=== PATIENT | male | born 1945 | race Caucasian/White ===

== ENCOUNTER → 2019-12-01 08:37 | Outpatient (BNVA) | payer MEDICARE, SELFPAY | PROVIDERS: Family Provider Family Medicine; PCP Family Medicine; Visit Provider Internal Medicine Cardiovascular Disease | DX: I25.5 Ischemic cardiomyopathy (principal) | CPT/HCPCS: 80048 ==

== ENCOUNTER → 2019-12-20 11:25 | Outpatient (BNVA) | payer MEDICARE, SELFPAY | PROVIDERS: Family Provider Family Medicine; PCP Family Medicine; Visit Provider Specialist | DX: Z48.89 Encounter for other specified surgical aftercare (principal); Z96.642 Presence of left artificial hip joint | CPT/HCPCS: 73502 ==

== ENCOUNTER → 2020-10-16 08:41 | Outpatient (BNVA) | payer MEDICARE, SELFPAY | PROVIDERS: Family Provider Family Medicine; PCP Family Medicine; Visit Provider Internal Medicine Cardiovascular Disease | DX: E78.2 Mixed hyperlipidemia (principal); I25.5 Ischemic cardiomyopathy | CPT/HCPCS: 80061; 80162 ==

== ENCOUNTER 2021-06-01 07:11 | Outpatient (CLI) | payer MEDICARE, SELFPAY ==
--- NOTE | 2021-06-01 07:15 | USCV_ITS ---
Anish Harris Age: 75 Gender: M : 1945 Exam Date: 06/01/2021 07:29 Ordering Phys: Filipe Mak MD ([email or web address]) Technologist: Betty Coleman Exam Location: [facility] [place] Indication: chest pain, other BP: 130 / 70 HR: 101 Rhythm: Sinus Technical Quality: Fair MEASUREMENTS (Male / Female) Normal Values 2D ECHO LV Diastolic Diameter PLAX 4.3 cm 4.2 - 5.9 / 3.9 - 5.3 cm LV Systolic Diameter PLAX 3.8 cm LV Chamber Size 3.7 cm IVS Diastolic Thickness 1.7 cm 0.6 - 1.0 / 0.6 - 0.9 cm IVS Systolic Thickness 1.9 cm LVPW Diastolic Thickness 1.6 cm 0.6 - 1.0 / 0.6 - 0.9 cm LVPW Systolic Thickness 1.7 cm RV Chamber Size 2.6 cm LVOT Diameter 2.0 cm LV Ejection Fraction 2D Teich 26.2 % LA Diameter 4.3 cm LA Width 3.3 cm LA Height 3.6 cm RA Width 2.9 cm RA Height 3.4 cm Aorta at Sinotubular Diameter 2.6 cm M-MODE Aortic Annulus Diameter 3.8 cm LA Ao Ratio MM 1.3 MV E Point Septal Separation 2.2 cm DOPPLER AV Peak Velocity 220.7 cm/s LVOT Peak Velocity 76.0 cm/s AV Area Cont Eq vti 1.2 cm squared AV Area Cont Eq pk 1.1 cm squared MV Area PHT 10.0 cm squared Mitral E to A Ratio 0.5 MV E' Velocity 32.0 cm/s Mitral E to MV E' Ratio 8.9 Mitral E to LV E' Lateral Ratio 10.2 Mitral E to LV E' Septal Ratio 8.0 TR Peak Velocity 180.5 cm/s TR Peak Gradient 13.0 mmHg TR Mean Velocity 111.6 cm/s TR Mean Gradient 6.0 mmHg TR Velocity Time Integral 34.9 cm TV Peak E Velocity 53.0 cm/s Right Atrial Pressure 3.0 mmHg Pulmonary Artery Systolic Pressu 16.0 mmHg PV Peak Velocity 78.0 cm/s RV Acceleration Time 0.1 s RV Ejection Time 0.3 s RV AcT/ET 0.4 FINDINGS Left Ventricle Moderate hypokinesia of the basal and mid septum and anteroseptal segments. 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 Overall ejection fraction around 45 %. The aneurysm measured 4.2 x 5.4 cm in the apical chamber view Right Ventricle Defibrillator wire in the right ventricle Right Atrium Pacemaker/defibrillator wire on the right atrium. Left Atrium Appears to be of normal size. Mitral Valve No Gross abnormalities noted Aortic Valve Mild aortic valve regurgitation. Thickened aortic valve. Tricuspid Valve No gross abnormalities noted Pulmonic Valve Pulmonic valve not well visualized. Pericardium Normal pericardium without effusion. Aorta Normal aortic annulus size. CONCLUSIONS LV size with a diminished ejection fraction of 45-50%. 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 The aneurysm measured 4.2 x 5.4 cm in the apical 2 chamber view Thickened aortic valve with mild aortic valve regurgitation. Pacemaker/defibrillator wire in the right atrium right ventricle Because of the technical difficulties, comparison with the previous study from 2015 is difficult. The aneurysm appears to have increased(from 5.0 to 5.4 cm in the longitudinal dimension. Because of the difference in the technical quality, exact comparison is difficult). The overall LV ejection fraction appears to have slightly improved. No pericardial effusion. Dr Filipe Mak MD [facility] (Electronically Signed) Final Date: 01 June 2021 16:03 S
== END 2021-06-01 07:12 | disposition home or self-care (01) ==
LOC: RAD 07:14
PROVIDERS: PCP Family Medicine; Visit Provider Internal Medicine Cardiovascular Disease
DX: R07.89 Other chest pain (principal); I25.5 Ischemic cardiomyopathy; I25.3 Aneurysm of heart; Z95.0 Presence of cardiac pacemaker; I35.8 Other nonrheumatic aortic valve disorders
CPT/HCPCS: 93306

== ENCOUNTER → 2021-06-04 08:56 | Outpatient (BNVA) | payer MEDICARE, SELFPAY | PROVIDERS: PCP Family Medicine; Visit Provider Internal Medicine Cardiovascular Disease | DX: R06.02 Shortness of breath (principal); I10 Essential (primary) hypertension; E11.9 Type 2 diabetes mellitus without complications; E78.5 Hyperlipidemia, unspecified; Z79.01 Long term (current) use of anticoagulants | CPT/HCPCS: 80048; 85025 ==

== ENCOUNTER → 2021-06-07 15:41 | Outpatient (BNVA) | payer MEDICARE, SELFPAY | PROVIDERS: PCP Family Medicine; Visit Provider Internal Medicine Cardiovascular Disease | DX: R53.1 Weakness (principal); E11.9 Type 2 diabetes mellitus without complications; I10 Essential (primary) hypertension; Z79.01 Long term (current) use of anticoagulants | CPT/HCPCS: 80053; 85025 ==

== ENCOUNTER 2021-06-11 07:31 | Outpatient (CLI) | payer MEDICARE, SELFPAY ==
[2021-06-11 08:34] LABS: INR 1.24 (0.83-1.21); Prothrombin Time (Patient) 15.9 Seconds (12.0-15.1)
[2021-06-27 09:11] LABS: Basophils % 0.3 %; Eosinophils % 0.1 %; Hematocrit 47.4 % (42.0-52.0); Hemoglobin 15.2 g/dL (11.7-16.6); Lymphocytes # 1.1 10^3/uL (0.8-4.8); Lymphocytes % 7.1 %; Mean Corpuscular HGB Conc 32.1 g/dL (30.0-36.0); Mean Corpuscular Hemoglobin 29.1 pg (28.0-34.0); Mean Corpuscular Volume 90.8 fL (80-94); Mean Platelet Volume 10.7 fL (7.4-10.4); Monocytes % 6.5 %; Neutrophils # 13.52 10^3/uL (1.8-7.7); Neutrophils % 85.2 %; Nucleated Red Blood Cells % 0 %; Platelet Count 230 10^3/cmm (130-400); Red Blood Count 5.22 10^6/uL (4.1-5.3); Red Cell Distribution Width 15.1 % (12.1-15.1); White Blood Count 15.9 10^3/uL (4.0-10.0)
[2021-06-27 09:22] LABS: Alanine Aminotransferase 10 U/L (0-41); Albumin Level 2.9 g/dL (3.5-5.2); Alkaline Phosphatase 125 IU/L (40-130); Calcium 9.2 mg/dL (8.5-10.5); Carbon Dioxide 15 mmol/L (22-29); Chloride 94 mmol/L (98-107); Globulin 4.9 g/dL (1.3-4.6); Glucose 276 mg/dL (65-115); Magnesium 2.8 mg/dL (1.7-2.3); Osmolality Calculated 312 mOsm/kg (285-295); Phosphorus 3.8 mg/dL (2.5-4.5); Sodium 129 mmol/L (136-145); Total Bilirubin 0.6 mg/dL (0.15-1.2); Total Protein 7.8 g/dL (6.6-8.7)
[2021-06-27 09:23] LABS: Lactic Sepsis W/Reflex 1.9 mmol/L (0.5-2.2)
[2021-06-27 09:41] LABS: Anion Gap 24.8 (5-19); Aspartate Amino Transferase 20 U/L (0-40); Potassium 4.8 mmol/L (3.5-5.1)
[2021-06-27 09:46] LABS: Blood Urea Nitrogen 107 mg/dL (8-23)
[2021-06-27 10:07] LABS: NT Pro B Type Natriuretic Pept 8579 pg/mL (0-450); Procalcitonin 0.69 ng/mL (0-0.5)
[2021-06-29 05:39] LABS: Basophils % 0.2 %; Eosinophils % 0.1 %; Hematocrit 45.1 % (42.0-52.0); Hemoglobin 14.3 g/dL (11.7-16.6); Lymphocytes # 0.7 10^3/uL (0.8-4.8); Lymphocytes % 4.2 %; Mean Corpuscular HGB Conc 31.7 g/dL (30.0-36.0); Mean Corpuscular Hemoglobin 29.1 pg (28.0-34.0); Mean Corpuscular Volume 91.7 fL (80-94); Mean Platelet Volume 10.3 fL (7.4-10.4); Monocytes # 1.7 10^3/uL (0.2-0.9); Monocytes % 10.5 %; Neutrophils # 13.71 10^3/uL (1.8-7.7); Neutrophils % 83.6 %; Nucleated Red Blood Cells % 0.1 %; Platelet Count 151 10^3/cmm (130-400); Red Blood Count 4.92 10^6/uL (4.1-5.3); Red Cell Distribution Width 15.7 % (12.1-15.1); White Blood Count 16.4 10^3/uL (4.0-10.0)
== END 2021-06-11 07:32 | disposition home or self-care (01) ==
PROVIDERS: Internal Medicine; PCP Family Medicine; Visit Provider Internal Medicine Cardiovascular Disease
DX: I25.3 Aneurysm of heart (principal); I25.5 Ischemic cardiomyopathy; I49.9 Cardiac arrhythmia, unspecified
CPT/HCPCS: 36415; 85610

== ENCOUNTER 2021-06-26 10:14 | Inpatient (IN) | payer MEDICARE, SELFPAY ==
[2021-06-26] VITALS (7 sets, daily range): BP systolic 94–124; BP diastolic 57–77; PULSE 97–110; RESP 14–20; TEMP 36.8; O2SAT 94–100; BMI 20.2; BMI 18.8
--- NOTE | 2021-06-26 10:55 | XRR_ITS ---
PROCEDURE INFORMATION: Exam: XR Chest Exam date and time: 06/26/2021 10:55 AM Age: 75 years old Clinical indication: Other: Weakness; Prior surgery TECHNIQUE: Imaging protocol: XR of the chest. Views: 1 view. COMPARISON: CR Chest 2 views* [id number] 01/07/2019 2:36 PM FINDINGS: Tubes, catheters and devices: A cardiac pacing device is again seen projecting over the left chest. Lungs: Unremarkable. No consolidation. Pleural spaces: Unremarkable. No pleural effusion. No pneumothorax. Heart/Mediastinum: Stable cardiomediastinal silhouette. Bones/joints: Unremarkable. XR/XR chest 1V portable [id number] IMPRESSION: No evidence of active cardiopulmonary disease.
--- NOTE | 2021-06-26 10:56 | ECG_ITS ---
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: : 1945 Requested By: Gary Michelle Order Number: [id number] Reading MD: LEO NASH Measurements Intervals [place] Rate: 114 P: 64 SD: 211 QRS: -8 QRSD: 95 T: 101 QT: 310 QTc: 428 Interpretive Statements SINUS TACHYCARDIA WITH FIRST DEGREE AV BLOCK INFERIOR MYOCARDIAL INFARCTION [40+ ms Q WAVE AND/OR ST/T ABNORMALITY IN II/aVF], OF INDETERMINATE AGE Compared to ECG 01/07/2019 15:13:36 First degree AV block now present Myocardial infarct finding now present Supraventricular rhythm no longer present T-wave abnormality no longer present Electronically Signed On 06-26-2021 22:32:16 CDT by LEO NASH [email or web address]/store/[id number]
--- NOTE | 2021-06-26 12:46 | W.ED.WEAKNES ---
HPI - Weakness General: Chief complaint: Weakness Stated complaint: Weak, Time Seen by Provider: 06/26/21 12:46 History of Present Illness: HPI Narrative: 75-year-old male presents to the emergency room with complaints of generalized weakness. He is increasing weakness over the last week. Patient is extremely cachectic with obvious temporal wasting. On further questioning his admits over last 6 months he is lost probably 50 to 60 pounds his clothes are very ill fitting. He is extremely weak to the point he cannot vocalize any answers other than a few week grunts. He denies any chest pain denies any shortness of breath he does have some abdominal discomfort. He has had a few episodes of vomiting but no diarrhea he denies any hematochezia melena hematemesis or coffee-ground emesis. He has no known cancers. He is a former smoker but it was many years ago. He has had heart attack in the past several decades ago. His is uncertain whether or not he had an angiogram but he did end up with a ICD. I suspect he did have an angiogram however he has no scars on his chest and she said they had told him he was not a candidate for bypass at the time. He has had early satiety leading up to the weight lost he never had any hemoptysis. MD Complaint: generalized weakness Onset (ago): month(s) Duration: progressively worsening Location: generalized Severity: severe Exacerbating factors: none Associated symptoms: Denies chest pain, chills, confusion, melena, decreased appetite, diaphoresis, dysuria, easy bruising, fever(s), headache(s), myalgias, nausea, rash, short of breath, syncope or vomiting Review of Systems Const: Reports: fatigue and malaise; Denies: fever(s), chills or diaphoresis Card: Denies: chest pain or syncope GI: Denies: nausea, vomiting or melena : Denies: dysuria Neuro: Denies: headache(s) or confusion Fermin/Lymph: Denies: easy bruising [facility] ED PFSH: Medical History (Updated 06/28/21 @ 07:00 by Gregory Goins DO) Benign essential HTN CAD (coronary artery disease) Diabetes mellitus, type II Hyperlipidemia Ischemic cardiomyopathy Pacemaker Subcapital fracture of left hip Ventricular arrhythmia Ventricular arrhythmia EKG from today revealed sinus rhythm with first-degree AV block diffuse nonspecific T wave changes Surgical History H/O cystoscopy History of implantable cardiac defibrillator (ICD) History of implantable cardioverter-defibrillator (ICD) insertion History of permanent cardiac pacemaker placement History of total left hip replacement Family History Brother Diabetes Heart disease CAD (coronary artery disease) Hypertension Father Stroke Denies family history of Clotting disorder Dementia Hyperlipidemia Psychiatric illness Chronic kidney disease (CKD) Suicide Anesthesia complication Bleeding disorder Family history of premature coronary artery disease Lung disease Cancer Social History Smoking and tobacco status: never smoked Alcohol intake: never Physical Exam Const: GENERAL APPEARANCE: cooperative NUTRITIONAL APPEARANCE: cachectic (Temporal wasting) ORIENTATION/CONSCIOUSNESS: Yes awake HENMT: COMMON NORMALS: normocephalic and atraumatic HEAD & SCALP: normocephalic and atraumatic Eye: COMMON NORMALS: Equal, round and reactive pupils present, EOMs intact bilaterally, conjunctivae normal and no scleral icterus CONJUNCTIVA: Yes conjunctivae normal PUPIL: Yes Equal, round and reactive pupils present Neck/C-Spine: COMMON NORMALS: full ROM, no lymphadenopathy, supple and no JVD Lymph: LYMPHATIC: no lymphadenopathy noted and no lymphedema noted Resp: COMMON NORMALS: normal respiratory effort, No retractions, No use of accessory muscles and clear to auscultation bilaterally AUSCULTATION: clear to auscultation bilaterally Cardio: COMMON NORMALS: no JVD, regular rate, regular rhythm and No murmurs present (Cardio) RATE: regular rate RHYTHM: regular rhythm GI: COMMON NORMALS: Soft to palpation and No hepatosplenomegaly present AUSCULTATION: Yes normoactive bowel sounds PALPATION: Yes Soft to palpation, No Tenderness to palpation present (GI), No Guarding due to palpation present (GI) and Yes No hepatosplenomegaly present Extremity: COMMON NORMALS: normal to inspection, capillary refill normal, no clubbing, cyanosis or edema, no calf tenderness and no pedal edema Skin: COMMON NORMALS: no rashes or lesions noted GENERAL SKIN EXAM: no rashes or lesions noted Course Vital Signs: Vital signs: Vital Signs Temperature 97.9 F 06/28/21 04:00 Pulse Rate 114 H 06/28/21 04:00 Respiratory Rate 19 H 06/28/21 04:00 Blood Pressure 106/71 06/28/21 04:00 Pulse Oximetry 98 06/28/21 04:00 MDM - Weakness MDM Narrative: Medical decision making narrative: Admit for hyponatremia acute on chronic kidney disease. Some anion gap metabolic acidosis secondary to his acute renal failure. He also has leukocytosis but no clearNidus of infection I suspect it is secondary to volume depletion from that is also contributing to his acute kidney injury. Discussed with hospitalist orders written Lab Data: Labs: Lab Results 06/26/21 06/26/21 06/26/21 Range/Units 12:55 12:55 12:55 WBC 17.2 H (4.0-10.0) 10^3/ uL RBC 5.76 H (4.1-5.3) 10^6/u L Hgb 16.5 (11.7-16.6) g/dL Hct 51.6 (42.0-52.0) % MCV 89.6 (80-94) fL MCH 28.6 (28.0-34.0) pg MCHC 32.0 (30.0-36.0) g/dL RDW 15.0 (12.1-15.1) % Plt Count 363 (130-400) 10^3/c mm MPV 10.0 (7.4-10.4) fL Neut % (Auto) 84.5 % Lymph % (Auto) 6.3 % [place] % (Auto) 8.0 % Eos % (Auto) 0.0 % Baso % (Auto) 0.2 % Neut # (Auto) 14.50 H (1.8-7.7) 10^3/u L Lymph # (Auto) 1.1 (0.8-4.8) 10^3/u L [place] # (Auto) 1.4 H (0.2-0.9) 10^3/u L Eos # (Auto) 0.0 (0.0-0.8) 10^3/u L Baso # (Auto) 0.0 (0.0-0.1) 10^3/u L Nucleated RBC % (a uto) 0 % Nucleated RBCs # 0.0 /100WBC Sodium 121 L (136-145) mmol/L Potassium 5.6 H (3.5-5.1) mmol/L Chloride 80 L (98-107) mmol/L Carbon Dioxide 12 L (22-29) mmol/L Anion Gap 34.6 H (5-19) BUN 124 H* D (8-23) mg/dL Creatinine 4.2 H (0.7-1.2) mg/dL GFR Calculation Not Reportable Glucose 572 H* (65-115) mg/dL Calculated Osmolal ity 318 H (285-295) mOsm/k g Calcium 10.1 (8.5-10.5) mg/dL Total Bilirubin 0.9 (0.15-1.2) mg/dL AST 13 (0-40) U/L ALT 13 (0-41) U/L Alkaline Phosphata se 154 H (40-130) IU/L Troponin T Baselin e 32 H (0-15) ng/L Troponin T 120 Min [place] (0-15) ng/L Delta Troponin T (0-10) ABS# NT-Pro-B Natriuret Pep 96108 H (0-450) pg/mL Total Protein 9.4 H (6.6-8.7) g/dL Albumin 3.9 (3.5-5.2) g/dL Globulin 5.5 H (1.3-4.6) g/dL Lipase 281 H (13-60) U/L Serum Ketones (Negative) 06/26/21 06/26/21 Range/Units 12:55 15:49 WBC (4.0-10.0) 10^3/ uL RBC (4.1-5.3) 10^6/u L Hgb (11.7-16.6) g/dL Hct (42.0-52.0) % MCV (80-94) fL MCH (28.0-34.0) pg MCHC (30.0-36.0) g/dL RDW (12.1-15.1) % Plt Count (130-400) 10^3/c mm MPV (7.4-10.4) fL Neut % (Auto) % Lymph % (Auto) % [place] % (Auto) % Eos % (Auto) % Baso % (Auto) % Neut # (Auto) (1.8-7.7) 10^3/u L Lymph # (Auto) (0.8-4.8) 10^3/u L [place] # (Auto) (0.2-0.9) 10^3/u L Eos # (Auto) (0.0-0.8) 10^3/u L Baso # (Auto) (0.0-0.1) 10^3/u L Nucleated RBC % (a uto) % Nucleated RBCs # /100WBC Sodium (136-145) mmol/L Potassium (3.5-5.1) mmol/L Chloride (98-107) mmol/L Carbon Dioxide (22-29) mmol/L Anion Gap (5-19) BUN (8-23) mg/dL Creatinine (0.7-1.2) mg/dL GFR Calculation Glucose (65-115) mg/dL Calculated Osmolal ity (285-295) mOsm/k g Calcium (8.5-10.5) mg/dL Total Bilirubin (0.15-1.2) mg/dL AST (0-40) U/L ALT (0-41) U/L Alkaline Phosphata se (40-130) IU/L Troponin T Baselin e (0-15) ng/L Troponin T 120 Min [place] 33.33 H (0-15) ng/L Delta Troponin T 1.33 (0-10) ABS# NT-Pro-B Natriuret Pep (0-450) pg/mL Total Protein (6.6-8.7) g/dL Albumin (3.5-5.2) g/dL Globulin (1.3-4.6) g/dL Lipase (13-60) U/L Serum Ketones Negative (Negative) Discharge Plan Discharge Patient Disposition: Admitted As Inpatient Admit Provider: Mendoza Daugherty Clinical Impression: Acute kidney injury superimposed on CKD, Hypertension, Leukocytosis, Diabetes mellitus, type II, Benign essential HTN, Hyponatremia, Metabolic acidosis Condition: Stable Coding Level of Care Code ED Certified Massage Therapist for Chg Fwd Exam Comprehensive
--- NOTE | 2021-06-26 12:56 | ECG_ITS ---
[facility] Test Date: 2021-06-26 Pat Name: Anish Harris Department: Room: Gender: Male Quality Liaison: : 1945 Requested By: Gary Michelle Order Number: [id number] Demar MD: LEO NASH Measurements Intervals [place] Rate: 113 P: 68 OR: 211 QRS: -26 QRSD: 96 T: 109 QT: 312 QTc: 429 Interpretive Statements SINUS TACHYCARDIA WITH FIRST DEGREE AV BLOCK INFERIOR MYOCARDIAL INFARCTION [40+ ms Q WAVE AND/OR ST/T ABNORMALITY IN II/aVF], OF INDETERMINATE AGE MODERATE T-WAVE ABNORMALITY, CONSIDER LATERAL ISCHEMIA [-0.1+ mV T WAVE IN I/aVL/V5/V6] Compared to ECG 06/26/2021 11:11:04 T-wave abnormality now present Possible ischemia now present Myocardial infarct finding still present Electronically Signed On 06-26-2021 22:33:28 CDT by LEO NASH [id number]
[2021-06-26 13:02] LABS: Basophils % 0.2 %; Hematocrit 51.6 % (42.0-52.0); Hemoglobin 16.5 g/dL (11.7-16.6); Lymphocytes # 1.1 10^3/uL (0.8-4.8); Lymphocytes % 6.3 %; Mean Corpuscular Hemoglobin 28.6 pg (28.0-34.0); Mean Corpuscular Volume 89.6 fL (80-94); Monocytes # 1.4 10^3/uL (0.2-0.9); Neutrophils % 84.5 %; Nucleated Red Blood Cells % 0 %; Platelet Count 363 10^3/cmm (130-400); Red Blood Count 5.76 10^6/uL (4.1-5.3); White Blood Count 17.2 10^3/uL (4.0-10.0)
--- NOTE | 2021-06-26 13:20 | CT_ITS ---
WS: [id number] CT CHEST, ABDOMEN AND PELVIS WITHOUT CONTRAST HISTORY: Dyspnea and abdominal pain. Weight loss. TECHNIQUE: Contiguous 5 mm axial imaging performed through the chest, abdomen and pelvis without IV c ontrast, oral contrast has not been provided. Coronal and sagittal reformats chest. Coronal and sagit patricia reformats through the abdomen and pelvis. All CT scans at [facility] use at least one of these dose optimization techniques: automated exposure control; mA and/or kV adjustment per patie nt size (includes targeted exams where dose is matched to clinical indication); or iterative reconstr uction. CONTRAST: None DLP: 1164.42 mGy.cm COMPARISON: 11/21/2018 and 06/02/[address]: Marked pulmonary hyperinflation with emphysema. 2 mm nodule LEFT upper lobe is very nonspec ific. No pneumonia. No pericardial or pleural effusions. LEFT subclavian pacer/defibrillator. Calcifi cations are stable in the wall of the LEFT atrium. Extensive three affiliated coronary artery calcifications. M oderate atherosclerosis thoracic aorta. No aneurysm. Small hiatal hernia. Abdomen CT: Normal liver and spleen on this unenhanced study. Well-distended gallbladder with choleli thiasis. Atrophied pancreas. Normal adrenal glands. Heavy calcification within the abdominal aorta wi th no aneurysm. Mild renal atrophy with parapelvic cysts. Mild dilatation of the LEFT there is mild d ilatation of each ureter of uncertain etiology. No stones are identified. There is no significant demarcus unt of perinephric stranding. No ascites. No adenopathy. Pelvic CT: Well-distended urinary bladder. No free fluid or adenopathy in the pelvis. Large amount of beam hardening artifact from the LEFT total hip arthroplasty. LEFT inguinal hernia contains fat only . T10 versus T11 vertebral planar fracture, chronic. CT/CT chest abd pel wo con IMPRESSION: 1. Severe emphysema with no pneumonia. 2. LEFT subclavian defibrillator/pacer. 3. Cholelithiasis without evidence for acute cholecystitis. 4. Fullness within each renal pelvis may be parapelvic cysts, solid neoplasm n ot excluded. The ureters are slightly prominent but there is no adjacent inflam mation. 5. Extensive atherosclerosis within the thoracic and abdominal aorta. 6. No ascites or adenopathy.
[2021-06-26 13:34] LABS: Troponin(5th) Baseline 32 ng/L (0-15)
[2021-06-26 13:48] LABS: Alanine Aminotransferase 13 U/L (0-41); Albumin Level 3.9 g/dL (3.5-5.2); Alkaline Phosphatase 154 IU/L (40-130); Anion Gap 34.6 (5-19); Aspartate Amino Transferase 13 U/L (0-40); Calcium 10.1 mg/dL (8.5-10.5); Carbon Dioxide 12 mmol/L (22-29); Chloride 80 mmol/L (98-107); Globulin 5.5 g/dL (1.3-4.6); Lipase 281 U/L (13-60); NT Pro B Type Natriuretic Pept 16803 pg/mL (0-450); Potassium 5.6 mmol/L (3.5-5.1); Sodium 121 mmol/L (136-145); Total Bilirubin 0.9 mg/dL (0.15-1.2); Total Protein 9.4 g/dL (6.6-8.7)
--- NOTE | 2021-06-26 13:51 | PC.PHAR ---
PTS FAMILY STATES SHE HELPS THE PT WITH HIS MEDICATIONS-PTS FAMILY STATES DR MELENDEZ OFFICE TOLD THEM TO HOLD WARFARIN TILL THEY SEE DR STRINGER-STATES THEY HAD APPT TODAY BUT ENDED UP HERE-RX FILLED ON 06/08/21 90D/S FOR 3MG DAILY-STATES THE PT TOOK 2 DOSES THEN STOP TAKING AND THEN TOOK A FEW DOSES A WEEK AGO TO SEE IF THAT WOULD HELP-NOTES ARE MADE IN THE PHARMACY COMMENTS
[2021-06-26 14:31] LABS: Blood Urea Nitrogen 124 mg/dL (8-23); Glucose 572 mg/dL (65-115); Osmolality Calculated 318 mOsm/kg (285-295)
[2021-06-26] MEDS: sodium chloride 0.9% 1,000 ML 999 ML IV (16:16)
[2021-06-26] MEDS: insulin regular-human 100 units/1 mL 10 UNIT IVP (16:16)
[2021-06-26 16:33] LABS: Troponin 5 2HR 33.33 ng/L (0-15); Troponin 5 2HR Delta 1.33 ABS# (0-10)
[2021-06-26 16:37] LABS: Ketone (Acetest) Serum Negative (Negative)
--- NOTE | 2021-06-26 16:56 | ECG_ITS ---
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 Measurements Intervals [place] Rate: 93 P: 44 CA: 185 QRS: -24 QRSD: 97 T: 0 QT: 347 QTc: 433 Interpretive Statements SINUS RHYTHM WITH OCCASIONAL VENTRICULAR PREMATURE COMPLEXES INFERIOR MYOCARDIAL INFARCTION [40+ ms Q WAVE AND/OR ST/T ABNORMALITY IN II/aVF], OF INDETERMINATE AGE Compared to ECG 06/26/2021 12:45:31 Ventricular premature complex(es) now present Sinus tachycardia no longer present First degree AV block no longer present T-wave abnormality no longer present Possible ischemia no longer present Myocardial infarct finding still present Electronically Signed On 06-28-2021 12:40:35 CDT by Lilian Jimenez M.D. [id number]
--- NOTE | 2021-06-26 17:22 | PC.NURSE ---
called Dr Daugherty to clarify order for NS with 3 amps of bicarb so that I could enter order. Dr Daugherty states he called the pharmacy and clarified and they will send me the bag of fluids the rate will be 50ml/hr. He also states not to give second liter of NS here. he verbally orders dominguez catheter for I and O monitoring.
--- NOTE | 2021-06-26 18:00 | PC.NURSE ---
attempted x 2 to insert a dominguez catheter. on first attempt with 16fr there is no ability to advance catheter beyond the meatus. there was a small amount of pale yellow pus drainage from penis noted. I attempted a second time with a 12 fr. and it would not advance beyond an inch into the meatus. I have requested a coude 12fr to attempt again as there is none available in ER.
[2021-06-26] MEDS: sodium bicarbonate 50 MEQ in sodium chloride 0.45% 1,000 ML 75 MEQ IV (18:37)
[2021-06-26 19:49] LABS: Troponin 5 6HR 23.94 ng/L (0-15)
--- NOTE | 2021-06-26 20:06 | NUR.SHIFT ---
report to Romina CLAROS
--- NOTE | 2021-06-26 20:36 | PM.HP ---
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 Came in with chief complaint of generalized weakness, which has worsened in the last week, to the extent that he was not ambulating, was having difficulty getting out of bed, at baseline he walks with a walker or cane, poor oral intake. Upon arrival in the ER he was worked up for above-mentioned complaint: Imaging studies: CT chest abd pel wo con: Severe emphysema with no pneumonia.Fullness within each renal pelvis may be parapelvic cysts, solid neoplasm not excluded. The ureters are slightly prominent but there is no adjacent inflammation. Pertinent labs: WBC 17,000, H&H:16/51, platelet count:363, serum sodium: 121, serum potassium:5.6, BUN/ serum creatinine: 124/4.2 , random blood sugar:572. Troponin T: Baseline: 32, 2h : 33, 2h d : 1.33, 6 h : 23 , 6-hour delta: -8.06. proBNP: 43139, lipase:281, serum ketones: Negative , serum bicarb:12. Patient received 10 units of regular insulin in ER, as well as 1 L normal saline bolus. Patient has been started on half-normal saline with 50 mEq of bicarb at the rate of 75 cc an hour. Review of Systems Const: Denies: fever(s) or chills Card: Denies: palpitations, edema, swelling of feet/ankles, orthopnea or leg pain with exertion Resp: Denies: dyspnea, productive cough, wheezing or pain on inspiration GI: Denies: vomiting, diarrhea or constipation Musc: Denies: back pain, extremity pain or extremity swelling Neuro: Denies: headache(s) Medications/Allergies Home Medications Medication Instructions Recorded Confirmed Last Taken Type aspirin 81 mg tablet,delayed 81 mg PO BEDTIME 04/19/20 06/26/21 06/24/21 History release glimepiride 4 mg tablet See Rx Instructions .ROUTE .COMPLEX 04/19/20 06/26/21 06/25/21 History levothyroxine 100 mcg tablet 100 mcg PO .DAILY EXCEPT ON SUN 04/19/20 06/26/21 Unknown History magnesium 2 tab PO DAILY 04/19/20 06/26/21 Unknown History rosuvastatin 20 mg tablet 20 mg PO BEDTIME 04/19/20 06/26/21 Unknown History metoprolol tartrate 50 mg tablet 50 mg PO BID #180 tab 10/20/20 06/26/21 06/25/21 Rx glimepiride 1 mg tablet 1 mg PO QAM tab 04/12/21 06/26/21 06/25/21 History tamsulosin 0.4 mg capsule 0.8 mg PO BEDTIME cap 04/12/21 06/26/21 Unknown History cholecalciferol (vitamin D3) 25 mcg PO DAILY 06/26/21 06/26/21 Unknown History [Vitamin D3] multivitamin 1 tab PO DAILY 06/26/21 06/26/21 Unknown History warfarin See Rx Instructions .ROUTE .COMPLEX 06/26/21 06/26/21 Unknown History Allergies Allergy/AdvReac Type Severity Reaction Status Date / Time No Known Allergies Allergy Verified 06/26/21 13:50 PFSH Acute PFSH: Medical History (Updated 06/26/21 @ 20:52 by Mendoza Daugherty MD) Benign essential HTN CAD (coronary artery disease) Diabetes mellitus, type II Hyperlipidemia Ischemic cardiomyopathy Pacemaker Subcapital fracture of left hip Ventricular arrhythmia Ventricular arrhythmia EKG from today revealed sinus rhythm with first-degree AV block diffuse nonspecific T wave changes Surgical History H/O cystoscopy History of implantable cardiac defibrillator (ICD) History of implantable cardioverter-defibrillator (ICD) insertion History of permanent cardiac pacemaker placement History of total left hip replacement Family History Brother Diabetes Heart disease CAD (coronary artery disease) Hypertension Father Stroke Denies family history of Clotting disorder Dementia Hyperlipidemia Psychiatric illness Chronic kidney disease (CKD) Suicide Anesthesia complication Bleeding disorder Family history of premature coronary artery disease Lung disease Cancer Social History Smoking and tobacco status: never smoked Alcohol intake: never Vitals/I&O/Wt Last Vital Signs Pulse 97 06/26/21 18:00 Resp 16 06/26/21 18:00 BP 124/71 06/26/21 18:00 Pulse Ox 98 06/26/21 18:00 06/26/21 06/26/21 06/26/21 06:59 14:59 22:59 Intake Total 1000 / 1000 Balance 1000 / 1000 Weight last 48 hrs Weight 67.585 kg Physical Exam Const: COMMON NORMALS: patient oriented x3 HENMT: COMMON NORMALS: normocephalic and atraumatic HEAD & SCALP: normocephalic and atraumatic Resp: AUSCULTATION: clear to auscultation bilaterally Cardio: COMMON NORMALS: regular rate, regular rhythm, S1 normal heart sound present, S2 normal heart sound present, No gallops present (Cardio), No murmurs present (Cardio), No rub (Cardio) and Peripheral pulses 2+ throughout RATE: regular rate RHYTHM: regular rhythm HEART SOUNDS: S1 normal heart sound present and S2 normal heart sound present PERIPHERAL PULSES: Peripheral pulses 2+ throughout GI: COMMON NORMALS: Normal to inspection, nondistended, normoactive bowel sounds present, Soft to palpation, non-tender, No hepatosplenomegaly present and no masses AUSCULTATION: Yes normoactive bowel sounds PALPATION: Yes Soft to palpation and Yes No hepatosplenomegaly present RECTAL EXAM: Yes deferred Extremity: COMMON NORMALS: no clubbing, cyanosis or edema and no pedal edema Neuro: COMMON NORMALS: patient oriented x3 Data : 06/26/21 12:55 06/26/21 12:55 Micro: Microbiology 06/26/21 15:40 Blood Culture - Preliminary Blood SPECIMEN COLLECTED 06/26/21 15:49 Blood Culture - Preliminary Blood SPECIMEN COLLECTED A&P Assessment and plan (1) Acute kidney injury superimposed on CKD: INDERJIT on CKD stage III: Likely prerenal: Secondary to dehydration: Baseline serum creatinine: 1.7-1.8 Current serum creatinine 4.2 Urine electrolytes ( fena ) Renal ultrasound Intake output charting Cabral catheter placement has been attempted, but failed, current plan is to put the Cudo catheter Monitor BMP. Half-normal saline with 50 mEq bicarb at the rate of 75 cc/hr Status: Acute (2) Leukocytosis: Likely secondary dehydration: Blood culture Urinalysis and urine culture: Procalcitonin Lactic acid Empirically on ceftriaxone. Status: Acute (3) Metabolic acidosis: Increased anion gap metabolic acidosis: Likely secondary to INDERJIT. Serum bicarb is 12 Currently on half-normal saline with 50 mEq bicarb at the rate of 75 cc/hr, will target goal serum bicarb of 24. Status: Acute (4) Hyponatremia: Hypovolemic hyponatremia. TSH Serum cortisol Urine osmolality Serum osmolality. Status: Acute (5) Hyperkalemia: Monitor BMP Telemetry monitoring Status: Acute (6) Hyperglycemia: Status: Acute (7) Diabetes mellitus, type II: Low-dose sliding scale insulin. Carb consistent diet Monitor fingerstick glucose Status: Acute Qualifiers: Diabetes mellitus driver/sales workers insulin use: without driver/sales workers use Diabetes mellitus complication status: with hyperglycemia Qualified Code(s): E11.65 - Type 2 diabetes mellitus with hyperglycemia (8) Hypertension: Status: Acute (9) Ischemic cardiomyopathy: Status: Acute Additional A&P Information CODE STATUS: Full code DVT prophylaxis: Heparin Attestations Medical Necessity Statement*: Patient is to be in hospital for management of INDERJIT, severe metabolic acidosis, severe generalized weakness.Anticipated length of stay greater than 2 midnights. Coding Level of Care Code Acute [facility] Director for [facility] Fwd Diagnoses Acute kidney injury superimposed on CKD N17.9; N18.9 Leukocytosis D72.829 Metabolic acidosis E87.2 Hyponatremia E87.1 Hyperkalemia E87.5 Hyperglycemia R73.9 Diabetes mellitus, type II E11.65 Diabetes mellitus driver/sales workers insulin use: without mcfp use Diabetes mellitus complication status: with hyperglycemia Hypertension I10 Ischemic cardiomyopathy I25.5
[2021-06-26 23:11] LABS: Glucose Point of Care 370 mg/dL (70-110)
[2021-06-26] MEDS: cefTRIAXone 1,000 MG in sodium chloride 0.9% (plus) 50 ML 100 MG IV (23:14)
[2021-06-26] MEDS: heparin 5,000 unit/mL INJ 1 mL 5000 UNIT SUBCUT (23:18)
[2021-06-26] MEDS: tamsulosin 0.4 mg Capsule 0.8 MG PO (23:18)
[2021-06-26] MEDS: aspirin 81 mg EC Tablet PO (23:19)
[2021-06-27] VITALS (9 sets, daily range): BP systolic 90–112; BP diastolic 62–72; PULSE 101–109; RESP 18–20; TEMP 36.2–36.6; O2SAT 95–100
--- NOTE | 2021-06-27 03:35 | PC.NURSE ---
Misha Attempted to place a 12 Italian cou[address] catheter per Dr Daugherty orders, and was unsuccessful. Bladder scanned the patient with residual around 200mL. Patient is slightly distended and notes slight discomfort. ER staff tried to place dominguez catheter x2 without success. This nurse notified Dr Ye to let him know and to see if he wanted to consult Dr Lew for dominguez catheter placement. Dr Ye stated he did not want to call Dr Lew at this time. Will continue to monitor patient.
--- NOTE | 2021-06-27 05:56 | PC.NURSE ---
Shift Note Frequent safety and comfort rounds continue. Orders and/or nursing care completed as indicated. Patient monitored for response to intervention and treatment(s). Unable to successfully place dominguez catheter per Dr Daugherty orders. Hospitalist was notified. Patient currently resting in bed. Will continue to monitor.
[2021-06-27] MEDS: levothyroxine 100 mcg Tablet PO (06:31)
[2021-06-27] MEDS: heparin 5,000 unit/mL INJ 1 mL 5000 UNIT SUBCUT ×2 (06:35→21:25)
[2021-06-27 08:49] LABS: Glucose Point of Care 287 mg/dL (70-110)
[2021-06-27] MEDS: cholecalciferol (vitamin D3) 1,000 unit Tablet 1000 UNIT PO (09:00)
[2021-06-27] MEDS: pantoprazole DR 40 mg Tablet PO (09:01)
[2021-06-27] MEDS: sodium chloride 0.9% 1,000 ML 75 ML IV ×2 (10:05→21:26)
--- NOTE | 2021-06-27 10:37 | PC.CHAP ---
Pastoral Care Encounter/Spiritual Assessment Type of Contact [] Declined traffic coordinator visit [] Patient/Family/Request visit [] Outpatient visit [] Follow-up visit [] Physician referral [] Code/Alert [x] Routine visit [] Staff referral [] Actively dying [] Patient sleeping [] Family support [] [] Out of room [] Palliative care [] [] Receiving care in room [] Pre-surgical visit [] Trauma [] Long length of stay [] ICU visit [] Other: Relational/Emotional Strength [x] Patient feels connected with others/family/visitors/staff [] Distress [] Loneliness/isolation [] Abandonment Spirituality of Patient [x] Person of Roma [] Attends Hinduism of their Roma [] Believes in Prayer [] Reads Bible or Jain materials [] There are Spiritual issues to be addressed Court Stenographer Interventions [x] Prayer [x] Active listening [x] Non-anxious presence [] Spiritual/emotional support [] Crisis/trauma care [] Spiritual counseling [] Bereavement support [] Provided bereavement packet [] Provided Bible/devotional materials [] Provided toy/stuffed animal, coloring book to patient or family member [] Provided Communion [] Anointing/[place] [] Salvation [x] Completed spiritual assessment [] Other: Impact on Illness or Injury [] Angry [] Fearful [] Anxious [] Often cries [] Exhaustion [] Unable to work [] Unable to attend yazidism [] Unable to walk/stand [] Unable to read [] Unable to drive [] Unable to eat/drink [] Unable to sleep [] Unable to be with family [] Patient intubated [] Other: Summary patient not feeling good very weak Time spent with patient 10- [id number]
[2021-06-27 12:19] LABS: Glucose Point of Care 294 mg/dL (70-110)
--- NOTE | 2021-06-27 12:21 | P.PN_ITS ---
Subjective Subjective: Interval history: Patient was seen and examined this morning continue to be lethargic and drowsy.BUN and SCR is trending down. other vitals and labs have been reviewed. Medications: Reviewed: Yes Vitals/I&O/Wt Last Vital Signs Temp 97.6 F 06/27/21 08:00 Pulse 109 H 06/27/21 08:00 Resp 18 06/27/21 08:00 BP 96/64 06/27/21 08:21 Pulse Ox 100 06/27/21 08:00 06/26/21 06/27/21 06/27/21 22:59 06:59 14:59 Intake Total 1000 / 1000 50 / 1050 1050 / 1050 Output Total 175 / 175 Balance 1000 / 1000 -125 / 875 1050 / 1050 Weight last 48 hrs Weight 63.248 kg Weight 67.585 kg Physical Exam Const: COMMON NORMALS: patient oriented x3 HENMT: COMMON NORMALS: normocephalic and atraumatic HEAD & SCALP: normocephalic and atraumatic Resp: COMMON NORMALS: clear to auscultation bilaterally AUSCULTATION: clear to auscultation bilaterally Cardio: COMMON NORMALS: regular rate, regular rhythm, S1 normal heart sound present, S2 normal heart sound present, No gallops present (Cardio), No murmurs present (Cardio), No rub (Cardio) and Peripheral pulses 2+ throughout RATE: regular rate RHYTHM: regular rhythm HEART SOUNDS: S1 normal heart sound present and S2 normal heart sound present PERIPHERAL PULSES: Peripheral pulses 2+ throughout GI: COMMON NORMALS: Normal to inspection, nondistended, normoactive bowel sounds present, Soft to palpation, non-tender, No hepatosplenomegaly present and no masses AUSCULTATION: Yes normoactive bowel sounds PALPATION: Yes Soft to palpation and Yes No hepatosplenomegaly present RECTAL EXAM: Yes deferred Extremity: COMMON NORMALS: no clubbing, cyanosis or edema and no pedal edema Neuro: COMMON NORMALS: patient oriented x3 Data : 06/26/21 12:55 06/26/21 12:55 Micro: Microbiology 06/26/21 15:40 Blood Culture - Preliminary Blood SPECIMEN COLLECTED 06/26/21 15:49 Blood Culture - Preliminary Blood SPECIMEN COLLECTED A&P Assessment and plan (1) Acute kidney injury superimposed on CKD: INDERJIT on CKD stage III: Likely prerenal: Secondary to dehydration: Baseline serum creatinine: 1.7-1.8 Current serum creatinine 4.2 Urine electrolytes ( fena ) Renal ultrasound: Intake output charting Cabral catheter placement has been attempted, but failed, current plan is to put the Cudo catheter Monitor BMP. Half-normal saline with 50 mEq bicarb at the rate of 75 cc/hr Status: Acute (2) Leukocytosis: Likely secondary dehydration and UTI Blood culture Urinalysis and urine culture: Procalcitonin Lactic acid Ceftriaxone. Status: Acute (3) UTI (urinary tract infection): Status: Acute (4) Metabolic acidosis: Increased anion gap metabolic acidosis: Likely secondary to INDERJIT. Serum bicarb is 12 Currently on half-normal saline with 50 mEq bicarb at the rate of 75 cc/hr, will target goal serum bicarb of 24. Status: Acute (5) Hyponatremia: Hypovolemic hyponatremia. TSH Serum cortisol Urine osmolality Serum osmolality. Status: Acute (6) Hyperkalemia: Monitor BMP Telemetry monitoring Status: Acute (7) Hyperglycemia: Status: Acute (8) Diabetes mellitus, type II: Low-dose sliding scale insulin. Carb consistent diet Monitor fingerstick glucose Status: Acute Qualifiers: Diabetes mellitus complication status: with hyperglycemia Diabetes joe litus marine oil terminal superintendent insulin use: without marine oil terminal superintendent use Qualified Code(s): E11.65 - Type 2 diabetes mellitus with hyperglycemia (9) Hypertension: Status: Acute (10) Ischemic cardiomyopathy: Status: Acute Additional A&P Information CODE STATUS: Full code DVT prophylaxis: Heparin Attestations Medical Necessity Statement*: Patient needs to be in hospital for the management of INDERJIT. Coding Level of Care Code Acute Clerk General for [facility] Fwd Exam Detailed Diagnoses Acute kidney injury superimposed on CKD N17.9; N18.9 Leukocytosis D72.829 UTI (urinary tract infection) N39.0 Metabolic acidosis E87.2 Hyponatremia E87.1 Hyperkalemia E87.5 Hyperglycemia R73.9 Diabetes mellitus, type II E11.65 Diabetes mellitus complication status: with hyperglycemia Diabetes mellitus marine oil terminal superintendent insulin use: without marine oil terminal superintendent use Hypertension I10 Ischemic cardiomyopathy I25.5
[2021-06-27] MEDS: sodium bicarbonate 650 mg Tablet 1300 MG PO ×2 (14:52→21:25)
--- NOTE | 2021-06-27 16:46 | PC.NURSE ---
Shift Note Frequent safety and comfort rounds continue. Orders and nursing care completed as indicated. Pt noted to be slightly hypotensive this am, see vital signs documentation. Dr. Daugherty notified, no new orders recieved. Dr. Daugherty consulted Dr. Mauricio for possible bladder obstruction. visited pt most of the day and spoke with Dr. Daugherty regarding plan of care.Still awaiting UA to be sent to lab. New orders to administer sodium bicarb 1300mg TID today, and start pt on NS@75ml/hr. Patient monitored for response to intervention and treatments. Education provided includes continue abx treatment for uti and continue nutritional importance. Patient and verbalized understanding. Will continue to monitor.
[2021-06-27 16:58] LABS: Glucose Point of Care 256 mg/dL (70-110)
--- NOTE | 2021-06-27 20:54 | US_ITS ---
WS: [id number] RENAL ULTRASOUND HISTORY: INDERJIT COMPARISON: None available. TECHNIQUE: 2-D and color Doppler imaging of the kidney submitted. Right kidney: 9.8 cm x 5.2 cm x 5.3 cm. There is mild dilatation of the RIGHT renal pelvis and proximal ureter. No solid mass. Mild diffuse t hinning of the cortex. Left kidney: 10.7 cm x 4.4 cm x 4.8 cm. Normal size kidney with mild dilatation of the central renal pelvis and proximal ureter. No cortical thinning. Aorta: Normal. Urinary Bladder: Variable echogenicity within the urinary bladder. Mild diffuse thickening of the javon dder wall. Probably an artifact. Bladder is poorly visualized by this CT evaluation as there was no c ontrast and there is artifact from the hip prosthesis. US/US renal BI* [id number] IMPRESSION: 1. Mild bilateral hydronephrosis of uncertain etiology. 2. Limited evaluation of the urinary bladder. There is bladder wall thickening but no definite mass identified.
[2021-06-27 20:58] LABS: Glucose Point of Care 238 mg/dL (70-110)
[2021-06-27] MEDS: cefTRIAXone 1,000 MG in sodium chloride 0.9% (plus) 50 ML 100 MG IV (21:24)
[2021-06-27] MEDS: aspirin 81 mg EC Tablet PO (21:25)
[2021-06-27] MEDS: tamsulosin 0.4 mg Capsule 0.8 MG PO (21:25)
[2021-06-28 04:00] VITALS: BP 106/71; PULSE 114; RESP 19; TEMP 36.6; O2SAT 98
[2021-06-28 04:26] LABS: Add Urine Culture? Yes; Bacteria Urine 1+ /hpf; Bilirubin Urine Neg (Negative); Blood Urine 3+ (Negative); Glucose Urine UA Norm (Normal); Ketones Urine Negative (Negative); Leukocyte Esterase Urine 2+ (Negative); Nitrate Urine Negative (Negative); Protein Urine 1+ (Negative); Squamous Epithelial Cell Urine 0-4 /hpf (0-5); Urine Appearance Cloudy (CLEAR); Urine Color Yellow (Yellow); Urobilinogen Urine Norm (Negative); WBC Urine TOO NUMEROUS TO CNT /hpf (0-5); pH Urine 5 (5-7)
[2021-06-28 04:31] LABS: Potassium, Radom Urine 27 mmol/L; Urine Random Chloride 30 mmol/L; Urine Random Sodium 46 mmol/L
[2021-06-28] MEDS: levothyroxine 100 mcg Tablet PO (05:36)
--- NOTE | 2021-06-28 05:58 | PC.NURSE ---
Shift Note Frequent safety and comfort rounds continue. Orders and/or nursing care completed as indicated. Patient monitored for response to intervention and treatment(s). Education provided includes[the frequency of rolling patient from side to side to prevent further skin breakdown, all medications that were given, and using his call light if he needed to get out of bed]. Patient and/or sales representative trainee[verbalized understanding].
[2021-06-28 07:43] VITALS: BP 87/55; PULSE 109; RESP 17; TEMP 36.8; O2SAT 94
--- NOTE | 2021-06-28 07:44 | PC.NURSE ---
Nurse Notified BP: 84/51 Right arm BP: 87/55 Left arm
[2021-06-28 08:51] LABS: Basophils % 0.3 %; Eosinophils % 0.2 %; Hematocrit 43.4 % (42.0-52.0); Hemoglobin 13.6 g/dL (11.7-16.6); Lymphocytes # 0.6 10^3/uL (0.8-4.8); Lymphocytes % 5.1 %; Mean Corpuscular HGB Conc 31.3 g/dL (30.0-36.0); Mean Corpuscular Hemoglobin 28.6 pg (28.0-34.0); Mean Corpuscular Volume 91.2 fL (80-94); Mean Platelet Volume 9.8 fL (7.4-10.4); Monocytes # 0.8 10^3/uL (0.2-0.9); Monocytes % 6.8 %; Neutrophils # 9.64 10^3/uL (1.8-7.7); Neutrophils % 86.9 %; Nucleated Red Blood Cells % 0 %; Platelet Count 158 10^3/cmm (130-400); Red Blood Count 4.76 10^6/uL (4.1-5.3); Red Cell Distribution Width 15.2 % (12.1-15.1); White Blood Count 11.1 10^3/uL (4.0-10.0)
[2021-06-28 09:13] LABS: Alanine Aminotransferase 10 U/L (0-41); Albumin Level 2.7 g/dL (3.5-5.2); Alkaline Phosphatase 111 IU/L (40-130); Aspartate Amino Transferase 19 U/L (0-40); Blood Urea Nitrogen 80 mg/dL (8-23); Calcium 9.1 mg/dL (8.5-10.5); Carbon Dioxide 19 mmol/L (22-29); Chloride 103 mmol/L (98-107); Globulin 4.2 g/dL (1.3-4.6); Glucose 213 mg/dL (65-115); Magnesium 2.5 mg/dL (1.7-2.3); Osmolality Calculated 312 mOsm/kg (285-295); Phosphorus 3.8 mg/dL (2.5-4.5); Sodium 136 mmol/L (136-145); Total Bilirubin 0.4 mg/dL (0.15-1.2); Total Protein 6.9 g/dL (6.6-8.7)
[2021-06-28 09:27] LABS: Anion Gap 18.4 (5-19); Potassium 4.4 mmol/L (3.5-5.1)
[2021-06-28 11:31] VITALS: BP 101/67; PULSE 110; RESP 17; TEMP 36.5; O2SAT 100
[2021-06-28 12:05] LABS: Glucose Point of Care 289 mg/dL (70-110)
--- NOTE | 2021-06-28 12:42 | P.CONIM_ITS ---
Providers/Reason For Consult Consulting Physician/Specialty*: Urology/Lew Reason for Consult*: UTI, bladder distention, bilateral hydronephrosis Attending Physician: Mendoza Daugherty MD Primary Care Provider: Param Kamara MD History of Present Illness History of Present Illness Anish Harris is a 75 year old male admitted with markedly elevated BUN and creatinine (4.2), UTI, CT scan demonstrating mild bilateral hydronephrosis, distended bladder. Attempts at passing a catheter by several staff were unsuccessful. CT scan also demonstrated bilateral renal calculi but no evidence of ureteral calculi. Consulted for further evaluation. In 2018 he had diagnosis of a large right proximal ureteral stone with obstruction [place] [facility] Was transferred to [facility] for treatment of the stone. No further information available regarding that. This hospitalization initiated through the emergency room visit for generalized weakness. It been progressing over a week. He was not able to ambulate at is worse. He had also lost a lot of weight over the last 6 months. White count was elevated at 17.2. Found to be in renal failure with a creatinine of 4.2. CT scan showed distended bladder, bilateral hydronephrosis and no evidence of ureteral intraluminal obstruction. Attempts at passing a catheter in the emergency department were unsuccessful I was consulted for further evaluation and treatment. He reports that he had a catheter placed when he had hip surgery sometime in the past and he does not know of any difficulty with that. PROCEDURE: BEDSIDE flexible CYSTOSCOPY WITH URETHRAL DILATION 2% lidocaine jelly for anesthesia. Informed consent obtained. Prepped with Betadine wash. Sterile drape applied exposing only the phallus. Flexible cystoscope could not be advanced through the urethral meatus. Close inspection revealed a distal urethral/fossa navicularis stricture. Dilated with Brig[place] sounds from 10 Australian to 20 Australian. 2% lidocaine jelly instilled into the urethra as much as it could before the dilation and then more fully after. Flexible cystoscopy was then performed Findings: Large amount of purulent material consistent with pyocystis was drained with the passage of the scope after dilation. The urethra showed multiple levels of bypassable large caliber stricture. Scope was passed into the bladder but it was not very well inspected due to the large amount of purulence. A guidewire was passed through the scope and a 14 [place] tip catheter (routine catheter converted to [place] tip with catheter punch) was advanced over the guidewire into the bladder with good function. Instructions given to the nursing staff to as needed aspirate the thick purulence out of the bladder with small amount of sterile water irrigation to maintain patency of the Cabral catheter. Recommendations: 1. Maintain Cabral catheter. I will increase the size of the catheter to a 16 or 18 Australian before discharge to help for further passive dilation of the distal urethral stricture. 2. We will plan on a voiding trial and repeat cystoscopy in the clinic to evaluate the bladder more thoroughly. Again could not completely or even remotely see much of the bladder wall due to the distention with pus. 3. Anticipate self clean intermittent catheterization for stricture patency maintenance program after recovers from infection Review of Systems Const: Reports: change in weight, fatigue and malaise Eyes: Denies: change in vision or eye discharge ENMT: Denies: throat pain or hoarseness Card: Reports: dyspnea on exertion; Denies: chest pain or palpitations Resp: Denies: wheezing or hemoptysis GI: Reports: abdominal pain : Reports: difficulty urinating, urinary frequency, urinary urgency, urinary dribbling and urinary incontinence; Denies: flank pain or hematuria Musc: Denies: joint redness or joint warmth Skin/Breast: Denies: rash or jaundice Neuro: Reports: weakness in extremities and behavioral changes Psych: Denies: anxiety or depression Endo: Denies: flushing [place]/Lymph: Denies: easy bruising or tender lymph nodes All/Imm: Denies: urticaria or acute wheezing Meds/Allergies Home Medications and Allergies Home Medications Medication Instructions Recorded Confirmed Last Taken Type aspirin 81 mg tablet,delayed 81 mg PO BEDTIME 04/19/20 06/26/21 06/24/21 History release glimepiride 4 mg tablet See Rx Instructions .ROUTE .COMPLEX 04/19/20 06/26/21 06/25/21 History levothyroxine 100 mcg tablet 100 mcg PO .DAILY EXCEPT ON SUN 04/19/20 06/26/21 Unknown History magnesium 2 tab PO DAILY 04/19/20 06/26/21 Unknown History rosuvastatin 20 mg tablet 20 mg PO BEDTIME 04/19/20 06/26/21 Unknown History metoprolol tartrate 50 mg tablet 50 mg PO BID #180 tab 10/20/20 06/26/21 06/25/21 Rx glimepiride 1 mg tablet 1 mg PO QAM tab 04/12/21 06/26/21 06/25/21 History tamsulosin 0.4 mg capsule 0.8 mg PO BEDTIME cap 04/12/21 06/26/21 Unknown History cholecalciferol (vitamin D3) 25 mcg PO DAILY 06/26/21 06/26/21 Unknown History [Vitamin D3] multivitamin 1 tab PO DAILY 06/26/21 06/26/21 Unknown History warfarin See Rx Instructions .ROUTE .COMPLEX 06/26/21 06/26/21 Unknown History Allergies Allergy/AdvReac Type Severity Reaction Status Date / Time No Known Allergies Allergy Verified 06/26/21 13:50 Current Medications Current Medications Generic Name Dose Route Start Last Admin Trade Name Freq PRN Reason Stop Dose Admin Aspirin 81 mg 06/26/21 21:00 06/27/21 21:25 Aspirin 81 Mg Ec Tablet PO 81 mg BEDTIME NIRU Administration Heparin Sodium (Beef Lung) 5,000 unit 06/27/21 20:00 06/27/21 21:25 Heparin 5,000 Unit/Ml Inj 1 Ml SUBCUT 5,000 unit Q12H NIRU Administration Ceftriaxone Sodium 1,000 mg/ 50 mls @ 100 mls/hr 06/26/21 19:13 06/27/21 23:46 Sodium Chloride IV Infused Q24H NIRU Infusion Protocol Sodium Chloride 1,000 mls @ 50 mls/hr 06/27/21 10:00 06/27/21 21:26 Sodium Chloride 0.9% IV 75 mls/hr .Q20H NIRU Administration Insulin Aspart 0 unit 06/26/21 19:13 06/27/21 21:25 Insulin Aspart 100 Unit/1 Ml SUBCUT 6 unit WM&BEDTIME NIRU Administration Protocol Levothyroxine Sodium 100 mcg 06/27/21 06:00 06/28/21 05:36 Levothyroxine 100 Mcg Tablet PO 100 mcg [id number] NIRU Administration Metoprolol Tartrate 50 mg 06/26/21 19:13 06/28/21 09:19 Metoprolol Tartrate 50 Mg Tablet PO Not Given BID NIRU Pantoprazole Sodium 40 mg 06/27/21 09:00 06/27/21 09:[address] 40 Mg Tablet PO 40 mg DAILY NIRU Administration Sodium Bicarbonate 1,300 mg 06/27/21 15:00 06/27/21 21:25 Sodium Bicarbonate 650 Mg Tablet PO 1,300 mg TID NIRU Administration Tamsulosin HCl 0.8 mg 06/26/21 21:00 06/27/21 21:25 Tamsulosin 0.4 Mg Capsule PO 0.8 mg BEDTIME NIRU Administration Vitamin D 1,000 unit 06/27/21 09:00 06/27/21 09:00 Cholecalciferol (Vitamin D3) 1,000 Unit Tablet PO 1,000 unit DAILY NIRU Administration PFSH Acute PFSH: Medical History (Updated 06/28/21 @ 17:09 by Alejo Lew MD) Benign essential HTN CAD (coronary artery disease) Diabetes mellitus, type II Hyperlipidemia Ischemic cardiomyopathy Pacemaker Subcapital fracture of left hip Ventricular arrhythmia Ventricular arrhythmia EKG from today revealed sinus rhythm with first-degree AV block diffuse nonspecific T wave changes Surgical History H/O cystoscopy History of implantable cardiac defibrillator (ICD) History of implantable cardioverter-defibrillator (ICD) insertion History of permanent cardiac pacemaker placement History of total left hip replacement Family History Brother Diabetes Heart disease CAD (coronary artery disease) Hypertension Father Stroke Denies family history of Clotting disorder Dementia Hyperlipidemia Psychiatric illness Chronic kidney disease (CKD) Suicide Anesthesia complication Bleeding disorder Family history of premature coronary artery disease Lung disease Cancer Social History Smoking and tobacco status: never smoked Alcohol intake: never Vitals/I&O/Wt Last Vital Signs Temp 97.7 F 06/28/21 11:31 Pulse 110 H 06/28/21 11:31 Resp 17 06/28/21 11:31 BP 101/67 06/28/21 11:31 Pulse Ox 100 06/28/21 11:31 06/27/21 06/28/21 06/28/21 22:59 06:59 14:59 Intake Total 1091.25 / 2381.25 50 / 2431.25 480 / 480 Output Total 250 / 250 450 / 700 Balance 841.25 / 2131.25 -400 / 1731.25 480 / 480 Weight last 48 hrs Weight 139 lb 7 oz Physical Exam Const: COMMON NORMALS: no acute distress and alert GENERAL APPEARANCE: well kempt, well developed and frail appearing; not anxious ORIENTATION/CONSCIOUSNESS: not confused HENMT: COMMON NORMALS: normocephalic and atraumatic HEAD & SCALP: normocephalic and atraumatic Eye: COMMON NORMALS: conjunctivae normal and no scleral icterus CONJUNCTIVA: Yes conjunctivae normal Neck/C-Spine: COMMON NORMALS: full ROM Resp: COMMON NORMALS: normal respiratory effort EFFORT & INSPECTION: No labored and No Actively coughing GI: COMMON NORMALS: Soft to palpation and no masses PALPATION: Yes Soft to palpation GI image (male): 1. tender : COMMON NORMALS: Yes no CVA tenderness BLADDER/KIDNEY EXAM: Yes no CVA tenderness MALE GROIN/PERINEUM EXAM: No ecchymosis PENIS: normal penis MEATUS: no meatla discharge and No Blood at meatus present SCROTUM: Yes testes descended bilaterally, No edematous and No scrotal swelling TESTES: No absent testicle, No testicular tenderness, No testicular mass, Yes epididymides normal and No epididymal tenderness Back/Pelvis: COMMON NORMALS: no CVA tenderness Extremity: COMMON NORMALS: no clubbing, cyanosis or edema Neuro: SENSORIUM/ORIENTATION: Yes alert Psych: COMMON NORMALS: mental status grossly normal APPEARANCE: Yes grossly normal and Yes well kempt ATTITUDE: Yes calm and Yes engaged Skin: COMMON NORMALS: no rashes or lesions noted and no jaundice GENERAL SKIN EXAM: no rashes or lesions noted Data Micro: Micro: Microbiology 06/26/21 15:49 Blood Culture - Pr eliminary Blood 06/26/21 15:40 Blood Culture - Pr eliminary Blood NEGATIVE TO DOROTHEA E A&P Assessment and plan (1) Pyocystis: Poorly draining bladder due to urethral stricture. Full of purulent material Status: Acute (2) Acute urinary retention: Probably truly chronic. 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
[2021-06-28] MEDS: pantoprazole DR 40 mg Tablet PO (13:09)
[2021-06-28] MEDS: midodrine 5 mg TABLET 10 MG PO (13:09)
[2021-06-28] MEDS: cholecalciferol (vitamin D3) 1,000 unit Tablet 1000 UNIT PO (13:09)
[2021-06-28] MEDS: sodium chloride 0.9% 1,000 ML 75 ML IV (13:10)
[2021-06-28] MEDS: heparin 5,000 unit/mL INJ 1 mL 5000 UNIT SUBCUT ×2 (13:10→21:12)
[2021-06-28] MEDS: sodium bicarbonate 650 mg Tablet 1300 MG PO ×2 (15:36→21:13)
[2021-06-28 15:55] VITALS: BP 100/57; PULSE 104; RESP 18; TEMP 36.7; O2SAT 97
[2021-06-28] MEDS: lidocaine 2% Urojet 20 mL TOPICAL (17:26)
[2021-06-28 18:11] LABS: Glucose Point of Care 274 mg/dL (70-110)
[2021-06-28] MEDS: metoprolol tartrate 50 mg Tablet PO (18:14)
--- NOTE | 2021-06-28 18:27 | P.PN_ITS ---
Subjective Subjective: Interval history: Patient was seen and examined this morning overall he is doing better, BUN and serum creatinine is trending down.WBC count is trending down. He has continued to remain afebrile, his other vitals and labs have been reviewed. Medications: Reviewed: Yes Vitals/I&O/Wt Last Vital Signs Temp 98.1 F 06/28/21 15:55 Pulse 104 H 06/28/21 15:55 Resp 18 06/28/21 15:55 BP 100/57 06/28/21 15:55 Pulse Ox 97 06/28/21 15:55 06/28/21 06/28/21 06/28/21 06:59 14:59 22:59 Intake Total 50 / 2431.25 1720 / 1720 Output Total 450 / 700 Balance -400 / 1731.25 1720 / 1720 Weight last 48 hrs Weight 63.248 kg Physical Exam Const: COMMON NORMALS: patient oriented x3 HENMT: COMMON NORMALS: normocephalic and atraumatic HEAD & SCALP: normocephalic and atraumatic Resp: COMMON NORMALS: clear to auscultation bilaterally AUSCULTATION: clear to auscultation bilaterally Cardio: COMMON NORMALS: regular rate, regular rhythm, S1 normal heart sound present, S2 normal heart sound present, No gallops present (Cardio), No murmurs present (Cardio), No rub (Cardio) and Peripheral pulses 2+ throughout RATE: regular rate RHYTHM: regular rhythm HEART SOUNDS: S1 normal heart sound present and S2 normal heart sound present PERIPHERAL PULSES: Peripheral pulses 2+ throughout GI: COMMON NORMALS: Normal to inspection, nondistended, normoactive bowel sounds present, Soft to palpation, non-tender, No hepatosplenomegaly present and no masses AUSCULTATION: Yes normoactive bowel sounds PALPATION: Yes Soft to palpation and Yes No hepatosplenomegaly present RECTAL EXAM: Yes deferred Extremity: COMMON NORMALS: no clubbing, cyanosis or edema and no pedal edema Neuro: COMMON NORMALS: patient oriented x3 Data : 06/28/21 08:43 06/28/21 08:43 Micro: Microbiology 06/26/21 15:49 Blood Culture - Preliminary Blood Coagulase negativ staphylococc 06/26/21 15:40 Blood Culture - Preliminary Blood NEGATIVE TO DATE A&P Assessment and plan (1) Acute kidney injury superimposed on CKD: INDERJIT on CKD stage III: Likely prerenal: Secondary to dehydration: Baseline serum creatinine: 1.7-1.8 Current serum creatinine 4.2 Urine electrolytes ( fena ) Renal ultrasound: Intake output charting Cabral catheter placement has been attempted, but failed, current plan is to put the Cudo catheter Monitor BMP. Gentle IV hydration with normal saline 50 cc an hour. Status: Acute (2) Urethral stricture: Distal urethral/fossa navicularis stricture: S/p cystoscopy with urethral dilatation: S/p 14 [place] tip Cabral catheter placement.He Will be discharged with indwelling Cabral catheter. To Follow urology as an outpatient. Status: Acute (3) Pyocystis: Purulent pus draining from bladder: Follow urine culture: Blood culture: 1 out of 3 bottles coagulase-negative staph likely contaminant. Status: Acute (4) Leukocytosis: Likely secondary dehydration and UTI Blood culture Urinalysis and urine culture: Procalcitonin:0.69 Lactic acid: 1.9 Ceftriaxone. Status: Acute (5) UTI (urinary tract infection): Ceftriaxone. Status: Acute (6) Metabolic acidosis: Increased anion gap metabolic acidosis: Likely secondary to INDERJIT. Initially was on half-normal saline with 50 mEq bicarb at the rate of 75 cc/hr, Currently on sodium bicarb 1300 mg 3 times daily will target goal serum bicarb of 24. Status: Acute (7) Hyponatremia: Hypovolemic hyponatremia: Resolved TSH Serum cortisol: Urine osmolality Serum osmolality. Status: Acute (8) Hyperkalemia: Resolved Monitor BMP Telemetry monitoring Status: Acute (9) Hyperglycemia: Status: Acute (10) Diabetes mellitus, type II: Lantus 10 u sc bedtime. Low-dose sliding scale insulin. Carb consistent diet Monitor fingerstick glucose Status: Acute (11) Hypertension: Status: Acute (12) Ischemic cardiomyopathy: Status: Acute Additional A&P Information CODE STATUS: Full code DVT prophylaxis: Heparin Attestations Medical Necessity Statement*: Patient needs to be in the hospital for management of INDERJIT , UTI. Coding Level of Care Code Acute Pipe Buffer for [facility] Fwd Diagnoses Acute kidney injury superimposed on CKD N17.9; N18.9 Urethral stricture N35.919 Pyocystis N30.80 Leukocytosis D72.829 UTI (urinary tract infection) N39.0 Metabolic acidosis E87.2 Hyponatremia E87.1 Hyperkalemia E87.5 Hyperglycemia R73.9 Diabetes mellitus, type II E11.9 Hypertension I10 Ischemic cardiomyopathy I25.5
[2021-06-28] MEDS: FUROsemide 10 mg/mL SDV 2mL 20 MG IVP (19:39)
[2021-06-28 20:05] VITALS: BP 102/71; PULSE 93; RESP 18; TEMP 36.7; O2SAT 99
[2021-06-28] MEDS: cefTRIAXone 1,000 MG in sodium chloride 0.9% (plus) 50 ML 100 MG IV (21:12)
[2021-06-28] MEDS: tamsulosin 0.4 mg Capsule 0.8 MG PO (21:13)
[2021-06-28] MEDS: aspirin 81 mg EC Tablet PO (21:23)
[2021-06-28] MEDS: insulin glargine 100 units/1 mL 10 UNIT SUBCUT (21:36)
[2021-06-28 22:00] VITALS: PULSE 113
[2021-06-29] VITALS (8 sets, daily range): BP systolic 88–107; BP diastolic 50–69; PULSE 96–118; RESP 16–24; TEMP 36.4–37.6; O2SAT 92–99
[2021-06-29] MEDS: amiodarone 50 mg/mL SDV 3 mL 150 MG IVP (02:12)
[2021-06-29] MEDS: levothyroxine 100 mcg Tablet PO (05:11)
[2021-06-29 07:19] LABS: Alanine Aminotransferase 16 U/L (0-41); Albumin Level 2.5 g/dL (3.5-5.2); Alkaline Phosphatase 114 IU/L (40-130); Aspartate Amino Transferase 34 U/L (0-40); Blood Urea Nitrogen 69 mg/dL (8-23); Calcium 8.7 mg/dL (8.5-10.5); Carbon Dioxide 19 mmol/L (22-29); Chloride 107 mmol/L (98-107); Globulin 4.2 g/dL (1.3-4.6); Glucose 117 mg/dL (65-115); Magnesium 2.4 mg/dL (1.7-2.3); Osmolality Calculated 313 mOsm/kg (285-295); Phosphorus 3.1 mg/dL (2.5-4.5); Sodium 141 mmol/L (136-145); Thyroid Stimulating Hormone 0.72 uIU/mL (0.27-4.20); Total Bilirubin 0.4 mg/dL (0.15-1.2); Total Protein 6.7 g/dL (6.6-8.7)
[2021-06-29] MEDS: pantoprazole DR 40 mg Tablet PO (08:39)
[2021-06-29] MEDS: cholecalciferol (vitamin D3) 1,000 unit Tablet 1000 UNIT PO (08:41)
[2021-06-29] MEDS: sodium bicarbonate 650 mg Tablet 1300 MG PO ×2 (08:43→16:04)
--- NOTE | 2021-06-29 08:46 | ECG_ITS ---
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 Measurements Intervals [place]or Rate: 114 P: 37 ND: 164 QRS: -36 QRSD: 86 T: 93 QT: 323 QTc: 447 Interpretive Statements SINUS TACHYCARDIA WITH OCCASIONAL VENTRICULAR PREMATURE COMPLEXES WITH OCCASIONAL SUPRAVENTRICULAR PREMATURE COMPLEXES INFERIOR MYOCARDIAL INFARCTION [40+ ms Q WAVE AND/OR ST/T ABNORMALITY IN II/aVF], OF INDETERMINATE AGE Compared to ECG 06/26/2021 19:05:45 Sinus rhythm no longer present Myocardial infarct finding still present Electronically Signed On 07-01-2021 12:27:49 CDT by Leroy Hernandez M.D. [id number]
[2021-06-29] MEDS: heparin 5,000 unit/mL INJ 1 mL 5000 UNIT SUBCUT ×2 (08:49→22:11)
[2021-06-29] MEDS: midodrine 5 mg TABLET PO (09:04)
[2021-06-29 09:06] LABS: Glucose Point of Care 166 mg/dL (70-110)
--- NOTE | 2021-06-29 10:16 | PC.SOCIAL ---
IMM Update: pg 2 of IMM reviewed and copy provided to the patient.
[2021-06-29 10:50] LABS: Glucose Point of Care 220 mg/dL (70-110)
[2021-06-29] MEDS: piperacillin-tazobactam 3.375 GM in sodium chloride 0.9% (plus) 50 ML IV ×2 (11:42→19:01)
[2021-06-29] MEDS: metoprolol tartrate 25 mg Tablet 12.5 MG PO ×2 (12:32→18:57)
--- NOTE | 2021-06-29 14:19 | PM.PN ---
Subjective Subjective: Interval history: Patient was seen and examined this morning, today he is more lethargic. WBC count has gone up. was tachycardic overnight. EKG in the morning; sinus tachycardia: Blood pressure is on the softer side. Medications: Reviewed: Yes Vitals/I&O/Wt Last Vital Signs Temp 97.8 F 06/29/21 11:48 Pulse 96 06/29/21 11:48 Resp 16 06/29/21 11:48 BP 107/69 06/29/21 11:48 Pulse Ox 96 06/29/21 11:48 06/28/21 06/29/21 06/29/21 22:59 06:59 14:59 Intake Total 110 / 1830 1000 / 2830 240 / 240 Output Total 1500 / 1500 Balance 110 / 1830 -500 / 1330 240 / 240 Physical Exam Const: COMMON NORMALS: patient oriented x3 HENMT: COMMON NORMALS: normocephalic and atraumatic HEAD & SCALP: normocephalic and atraumatic Resp: OTHER: Diminished air entry at the bases Cardio: COMMON NORMALS: regular rate, regular rhythm, S1 normal heart sound present, S2 normal heart sound present, No gallops present (Cardio), No murmurs present (Cardio), No rub (Cardio) and Peripheral pulses 2+ throughout RATE: regular rate RHYTHM: regular rhythm HEART SOUNDS: S1 normal heart sound present and S2 normal heart sound present PERIPHERAL PULSES: Peripheral pulses 2+ throughout GI: COMMON NORMALS: Normal to inspection, nondistended, normoactive bowel sounds present, Soft to palpation, non-tender, No hepatosplenomegaly present and no masses AUSCULTATION: Yes normoactive bowel sounds PALPATION: Yes Soft to palpation and Yes No hepatosplenomegaly present RECTAL EXAM: Yes deferred Extremity: COMMON NORMALS: no clubbing, cyanosis or edema and no pedal edema Neuro: COMMON NORMALS: patient oriented x3 Urinary Catheter Management^: Cabral: Cath Placed During This Visit: yes Reason for Continuing Indwelling Catheter: Accurate Measurement of Urinary Output in Critically Ill Patients Urinary Catheter Date of Insertion: 06/28/21 Urinary Catheter Time of Insertion: 15:00 Data : 06/28/21 08:43 06/29/21 06:19 Micro: Microbiology 06/26/21 15:49 Blood Culture - Preliminary Blood Coagulase negativ staphylococc A&P Assessment and plan (1) Sepsis: Sepsis secondary to pyocystis Patient is hypotensive, tachycardic, elevated WBC. Follow urine culture Initially on ceftriaxone, switched to Zosyn on 06/29 Midodrine 10 mg po TID Status: Acute (2) Acute kidney injury superimposed on CKD: INDERJIT on CKD stage III: Likely prerenal: Secondary to dehydration: Baseline serum creatinine: 1.7-1.8 Current serum creatinine 1.9 Urine electrolytes ( fena ) Renal ultrasound: Intake output charting Cabral catheter placement has been attempted, but failed, current plan is to put the Cudo catheter Monitor BMP. Gentle IV hydration with normal saline 50 cc an hour. Status: Acute (3) Urethral stricture: Distal urethral/fossa navicularis stricture: S/p cystoscopy with urethral dilatation: S/p 14 Citizen [place] tip Cabral catheter placement.He Will be discharged with indwelling Cabral catheter. To Follow urology as an outpatient. Status: Acute (4) Pyocystis: Purulent pus draining from bladder: Follow urine culture: Blood culture: 1 out of 3 bottles coagulase-negative staph likely contaminant. Status: Acute (5) Leukocytosis: Likely secondary dehydration and UTI Blood culture Urinalysis and urine culture: Procalcitonin:0.69 Lactic acid: 1.9 Ceftriaxone. Status: Acute (6) UTI (urinary tract infection): Zosyn Status: Acute (7) Metabolic acidosis: Increased anion gap metabolic acidosis: Likely secondary to INDERJIT. Initially was on half-normal saline with 50 mEq bicarb at the rate of 75 cc/hr, Currently on sodium bicarb 1300 mg 3 times daily will target goal serum bicarb of 24. Status: Acute (8) Hyponatremia: Hypovolemic hyponatremia: Resolved TSH: 0.72 Serum cortisol: 39 Urine osmolality Serum osmolality. Status: Acute (9) Hyperkalemia: Resolved Monitor BMP Telemetry monitoring Status: Acute (10) Hyperglycemia: Status: Acute (11) Diabetes mellitus, type II: Lantus 10 u sc bedtime. Low-dose sliding scale insulin. Carb consistent diet Monitor fingerstick glucose Status: Acute (12) Hypertension: Status: Acute (13) Ischemic cardiomyopathy: Status: Acute Additional A&P Information CODE STATUS: Full code DVT prophylaxis: Heparin Attestations Medical Necessity Statement*: Patient Needs to be in hospital for management of sepsis Coding Level of Care Code Acute Fireworks Inspector for [facility] Fwd Diagnoses Sepsis A41.9 Acute kidney injury superimposed on CKD N17.9; N18.9 Urethral stricture N35.919 Pyocystis N30.80 Leukocytosis D72.829 UTI (urinary tract infection) N39.0 Metabolic acidosis E87.2 Hyponatremia E87.1 Hyperkalemia E87.5 Hyperglycemia R73.9 Diabetes mellitus, type II E11.9 Hypertension I10 Ischemic cardiomyopathy I25.5
[2021-06-29] MEDS: midodrine 5 mg TABLET 10 MG PO (15:17)
[2021-06-29 16:49] LABS: Glucose Point of Care 224 mg/dL (70-110)
[2021-06-29 20:59] LABS: Glucose Point of Care 238 mg/dL (70-110)
--- NOTE | 2021-06-29 21:59 | PC.NURSE ---
Upon assesment pt is very lethargic and weak. called hospitalist who assessed and noted her needed to be seen in the morning. Around 2129 patient has increased shortness of breath. Called Primary doc who ordered nasal canuala and continuos pulse ox. Will continue to monitor closley.
[2021-06-29] MEDS: insulin glargine 100 units/1 mL 10 UNIT SUBCUT (22:13)
[2021-06-30] VITALS (59 sets, daily range): BP systolic 71–109; BP diastolic 50–66; PULSE 81–944; RESP 15–31; TEMP 35.9–37.8; O2SAT 93–100
[2021-06-30] MEDS: piperacillin-tazobactam 3.375 GM in sodium chloride 0.9% (plus) 50 ML IV ×2 (02:15→14:10)
[2021-06-30 05:23] LABS: Basophils # 0.1 10^3/uL (0.0-0.1); Basophils % 0.3 %; Eosinophils % 0.1 %; Hematocrit 46.1 % (42.0-52.0); Hemoglobin 14.5 g/dL (11.7-16.6); Lymphocytes % 6.8 %; Mean Corpuscular HGB Conc 31.5 g/dL (30.0-36.0); Mean Corpuscular Hemoglobin 28.7 pg (28.0-34.0); Mean Corpuscular Volume 91.3 fL (80-94); Mean Platelet Volume 10.8 fL (7.4-10.4); Monocytes # 0.7 10^3/uL (0.2-0.9); Monocytes % 4.8 %; Neutrophils # 12.99 10^3/uL (1.8-7.7); Neutrophils % 85.9 %; Nucleated Red Blood Cells % 0.1 %; Platelet Count 154 10^3/cmm (130-400); Red Blood Count 5.05 10^6/uL (4.1-5.3); Red Cell Distribution Width 16.2 % (12.1-15.1); White Blood Count 15.1 10^3/uL (4.0-10.0)
[2021-06-30 05:58] LABS: Alanine Aminotransferase 29 U/L (0-41); Albumin Level 2.3 g/dL (3.5-5.2); Alkaline Phosphatase 111 IU/L (40-130); Aspartate Amino Transferase 70 U/L (0-40); Blood Urea Nitrogen 74 mg/dL (8-23); Calcium 8.9 mg/dL (8.5-10.5); Carbon Dioxide 19 mmol/L (22-29); Chloride 110 mmol/L (98-107); Globulin 4.3 g/dL (1.3-4.6); Glucose 186 mg/dL (65-115); NT Pro B Type Natriuretic Pept 7399 pg/mL (0-450); Osmolality Calculated 329 mOsm/kg (285-295); Sodium 146 mmol/L (136-145); Total Bilirubin 0.5 mg/dL (0.15-1.2); Total Protein 6.6 g/dL (6.6-8.7)
[2021-06-30 06:03] LABS: Slide Review Slide Review Perform
[2021-06-30 06:38] LABS: Glucose Point of Care 194 mg/dL (70-110)
[2021-06-30] MEDS: dextrose 5% 1,000 ML 50 ML IV (07:46)
[2021-06-30] MEDS: heparin 5,000 unit/mL INJ 1 mL 5000 UNIT SUBCUT ×2 (07:50→21:16)
--- NOTE | 2021-06-30 07:58 | XRR_ITS ---
PROCEDURE INFORMATION: Exam: XR Chest Exam date and time: 06/30/2021 7:58 AM Age: 75 years old Clinical indication: Shortness of breath; Additional info: SOB TECHNIQUE: Imaging protocol: XR of the chest. Views: 1 view. COMPARISON: CT chest abd pel wo con 06/26/2021 2:42 PM FINDINGS: Tubes, catheters and devices: AICD. Lungs: Emphysematous change , interstitial prominence, and trace basilar airspace disease. Pleural spaces: No pleural effusion. Heart/Mediastinum: No cardiomegaly. Vasculature: Calcification of the thoracic aorta. Bones/joints: Osteopenia, thoracic spine compression fractures, and degenerative change XR/XR chest 1V portable [id number] IMPRESSION: Emphysematous change , interstitial prominence, and trace basilar airspace disease.
--- NOTE | 2021-06-30 08:02 | P.PN_ITS ---
Subjective Subjective: Interval history: Patient continue to be lethargic,with poor oral intake, and very soft blood pressure, SCR has worsened with elevated BUN. ABG done this morning Ph: 7.54, PCO2: 19, PO2: 106 FIO2 : 36 % Medications: Reviewed: Yes Vitals/I&O/Wt Last Vital Signs Temp 98.1 F 06/30/21 04:55 Pulse 104 H 06/30/21 04:55 Resp 20 H 06/30/21 04:55 BP 90/65 06/30/21 04:55 Pulse Ox 97 06/30/21 04:55 06/29/21 06/30/21 06/30/21 22:59 06:59 14:59 Intake Total 50 / 530 100 / 630 Output Total 450 / 450 Balance 50 / 530 -350 / 180 Physical Exam Const: COMMON NORMALS: patient oriented x3 HENMT: COMMON NORMALS: normocephalic and atraumatic HEAD & SCALP: normocephalic and atraumatic Resp: COMMON NORMALS: clear to auscultation bilaterally AUSCULTATION: clear to auscultation bilaterally OTHER: Diminished air entry at the bases Cardio: COMMON NORMALS: regular rate, regular rhythm, S1 normal heart sound present, S2 normal heart sound present, No gallops present (Cardio), No murmurs present (Cardio), No rub (Cardio) and Peripheral pulses 2+ throughout RATE: regular rate RHYTHM: regular rhythm HEART SOUNDS: S1 normal heart sound present and S2 normal heart sound present PERIPHERAL PULSES: Peripheral pulses 2+ throughout GI: COMMON NORMALS: Normal to inspection, nondistended, normoactive bowel sounds present, Soft to palpation, non-tender, No hepatosplenomegaly present and no masses AUSCULTATION: Yes normoactive bowel sounds PALPATION: Yes Soft to palpation and Yes No hepatosplenomegaly present RECTAL EXAM: Yes deferred Extremity: COMMON NORMALS: no clubbing, cyanosis or edema and no pedal edema Neuro: COMMON NORMALS: patient oriented x3 Urinary Catheter Management^: Cabral: Cath Placed During This Visit: yes Reason for Continuing Indwelling Catheter: Accurate Measurement of Urinary Output in Critically Ill Patients Urinary Catheter Date of Insertion: 06/28/21 Urinary Catheter Time of Insertion: 15:00 Data : 06/30/21 04:45 06/30/21 04:45 Micro: Microbiology 06/28/21 03:59 Urine Culture - Preliminary Urine,Clean Catch Yeast A&P Assessment and plan (1) Sepsis: Septic Shock secondary to pyocystis Patient is hypotensive, tachycardic, elevated WBC. Xray chest : Emphysematous change , interstitial prominence, and trace basilar airspace disease. Procalcitonin:0.69 Lactic acid: 1.9 Urine culture:Yeast Blood culture : Cogulase negative staph / Initially on ceftriaxone, switched to Zosyn on 06/29 Fluconazole 200 mg I.V Daily Levophed Midodrine 10 mg po TID Status: Acute (2) Acute kidney injury superimposed on CKD: INDERJIT on CKD stage III: Likely prerenal: Secondary to dehydration: Baseline serum creatinine: 1.7-1.8 Current serum creatinine 1.9 Urine electrolytes ( fena ) Renal ultrasound: Mild bilateral hydronephrosis Intake output charting Monitor BMP. 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 To Follow urology as an outpatient. Status: Acute (4) Pyocystis: Purulent pus draining from bladder: Follow urine culture: Blood culture: 1 out of 3 bottles coagulase-negative staph likely contaminant. Status: Acute (5) UTI (urinary tract infection): Zosyn Status: Acute (6) Metabolic acidosis: Increased anion gap metabolic acidosis: Likely secondary to INDERJIT. Initially was on half-normal saline with 50 mEq bicarb at the rate of 75 cc/hr, Currently on sodium bicarb 650 mg 3 times daily will target goal serum bicarb of 24. Status: Acute (7) Hyponatremia: Hypovolemic hyponatremia: Resolved TSH: 0.72 Serum cortisol: 39 Urine osmolality Serum osmolality. Status: Acute (8) Hyperkalemia: Resolved Monitor BMP Telemetry monitoring Status: Acute (9) Hyperglycemia: Status: Acute (10) Diabetes mellitus, type II: Lantus 10 u sc bedtime. Low-dose sliding scale insulin. Carb consistent diet Monitor fingerstick glucose Status: Acute (11) Hypertension: Status: Acute (12) Ischemic cardiomyopathy: Status: Acute Additional A&P Information CODE STATUS: Full code DVT prophylaxis: Heparin Attestations Medical Necessity Statement*: Patient needs to be in hospital for the management of septic shock. Coding Level of Care Code Acute Die Stamping Press Operator for Chg Fwd Diagnoses Sepsis A41.9 Acute kidney injury superimposed on CKD N17.9; N18.9 Urethral stricture N35.919 Pyocystis N30.80 UTI (urinary tract infection) N39.0 Metabolic acidosis E87.2 Hyponatremia E87.1 Hyperkalemia E87.5 Hyperglycemia R73.9 Diabetes mellitus, type II E11.9 Hypertension I10 Ischemic cardiomyopathy I25.5
[2021-06-30 08:19] LABS: ABG PCO2 19.6 mmHg (35-45); ABG PH Result 7.54 (7.35-7.45); Arterial Blood Gas Hematocrit 43.8 % (42-52); Base Excess ABG -3.5 mmol/L (-2.0-2.0); Blood Gas Operator Identificat AMH; Blood Gas Sample Site Brachial, right; Blood Gas Sample Type Arterial; Carboxyhemoglobin 0.7 %THgb (0.4-20.1); HCO3 ABG 16.6 mmol/L (22-26); HGB O2 Sat 98.1 % (95-100); Ionized Calcium Level - ABG 1.3 mmol/L (1.1-1.4); Methemoglobin 0.6 % (0.4-1.5); Oxygen Device NC; Oxygen Saturation ABG 99.4; Potassium Level - ABG 3.8 mmol/L (3.5-5.0); Total Hemoglobin 14.3 g/dL (14-18)
[2021-06-30] MEDS: fluconazole premix 200 MG/100 ML PREMIX 100 MG IV (08:36)
[2021-06-30] MEDS: midodrine 5 mg TABLET 10 MG PO ×3 (09:47→21:59)
[2021-06-30] MEDS: sodium bicarbonate 650 mg Tablet PO ×3 (09:47→21:40)
[2021-06-30] MEDS: cholecalciferol (vitamin D3) 1,000 unit Tablet 1000 UNIT PO (09:47)
[2021-06-30] MEDS: metoprolol tartrate 25 mg Tablet 12.5 MG PO (09:48)
[2021-06-30] MEDS: pantoprazole DR 40 mg Tablet PO (09:48)
[2021-06-30 09:59] LABS: SARS Covid-2 Antigen Negative (Negative)
[2021-06-30 10:37] LABS: Ammonia 37 umol/L (16-60)
[2021-06-30 13:37] LABS: Glucose Point of Care 269 mg/dL (70-110)
--- NOTE | 2021-06-30 15:20 | PC.NUTR ---
Nutrition follow up: Po intakes averaging 23% X 7 meals since last review. Nurse reports suspected aspiration to this RD. Notified Dr. Daugherty and recommended COOKER LOADER eval. Recommend to encourage po intakes of meals/supplements at appropriate consistencies/textures pending COOKER LOADER evaluation. See full RD assessment for further details.
[2021-06-30 17:15] LABS: Glucose Point of Care 255 mg/dL (70-110)
[2021-06-30 21:08] LABS: Glucose Point of Care 215 mg/dL (70-110)
[2021-06-30] MEDS: insulin glargine 100 units/1 mL 10 UNIT SUBCUT (21:39)
[2021-06-30] MEDS: aspirin 81 mg EC Tablet PO (21:40)
[2021-06-30] MEDS: tamsulosin 0.4 mg Capsule 0.8 MG PO (21:40)
[2021-06-30] MEDS: acetaminophen 325 mg Tablet 650 MG PO (21:41)
[2021-06-30] MEDS: sodium chloride 0.9% 500 ML IV (23:51)
[2021-07-01] VITALS (88 sets, daily range): BP systolic 74–111; BP diastolic 43–62; PULSE 66–155; RESP 15–36; TEMP 36.2–36.7; O2SAT 79–100
--- NOTE | 2021-07-01 01:36 | PC.NURSE ---
Transfer Note Patient transferred to ICU-3 from [facility]-surg via bed. Handoff received from Colby Valladares RN ICU staff. Patient and spouse oriented to environment and equipment. Covering service notified. Orders reviewed and will continue to monitor. Family and mill representative notified. Patient had deep tissue pressure ulcer on coccyx, reported as stage II in report. There was no urine in dominguez bag, it was irrigated per prn orders and pink purulent urine started to drain. Patient only oriented to self with short term memory, so he was continually educated throughout shift.
--- NOTE | 2021-07-01 01:44 | PC.NURSE ---
Shift Note Frequent safety and comfort rounds continue. Orders and/or nursing care completed as indicated. Patient monitored for response to intervention and treatment(s). Education provided includes reason for dominguez and not pulling it out, medications with side effects, oxygen and telemetry. Patient and spouse verbalized understanding of education but patient had to be continuously reeducated throughout the shift. Blood pressure required levophed support, Dr Caruso notified and bolus ordered. Will continue to monitor.
[2021-07-01] MEDS: piperacillin-tazobactam 3.375 GM in sodium chloride 0.9% (plus) 50 ML IV ×2 (02:03→16:42)
[2021-07-01] MEDS: dextrose 5% 1,000 ML 50 ML IV (02:03)
[2021-07-01 08:02] LABS: Glucose Point of Care 333 mg/dL (70-110)
[2021-07-01] MEDS: midodrine 5 mg TABLET 10 MG PO (08:15)
[2021-07-01] MEDS: cholecalciferol (vitamin D3) 1,000 unit Tablet 1000 UNIT PO (08:15)
[2021-07-01] MEDS: pantoprazole DR 40 mg Tablet PO (08:15)
[2021-07-01] MEDS: heparin 5,000 unit/mL INJ 1 mL 5000 UNIT SUBCUT ×2 (08:15→20:59)
[2021-07-01] MEDS: sodium bicarbonate 650 mg Tablet PO (08:15)
[2021-07-01 09:46] LABS: Basophils # 0.1 10^3/uL (0.0-0.1); Basophils % 0.4 %; Eosinophils # 0.2 10^3/uL (0.0-0.8); Eosinophils % 1.1 %; Hematocrit 45.1 % (42.0-52.0); Hemoglobin 13.1 g/dL (11.7-16.6); Lymphocytes # 1.5 10^3/uL (0.8-4.8); Mean Corpuscular Hemoglobin 28.9 pg (28.0-34.0); Mean Corpuscular Volume 99.3 fL (80-94); Mean Platelet Volume 10.5 fL (7.4-10.4); Monocytes # 0.7 10^3/uL (0.2-0.9); Monocytes % 5.3 %; Nucleated Red Blood Cells % 0 %; Platelet Count 129 10^3/cmm (130-400); Red Blood Count 4.54 10^6/uL (4.1-5.3); Red Cell Distribution Width 16.5 % (12.1-15.1); White Blood Count 13.3 10^3/uL (4.0-10.0)
[2021-07-01 09:59] LABS: Alanine Aminotransferase 41 U/L (0-41); Albumin Level 1.8 g/dL (3.5-5.2); Alkaline Phosphatase 112 IU/L (40-130); Calcium 8.5 mg/dL (8.5-10.5); Carbon Dioxide 19 mmol/L (22-29); Chloride 105 mmol/L (98-107); Globulin 4.4 g/dL (1.3-4.6); Glucose 298 mg/dL (65-115); Magnesium 2.7 mg/dL (1.7-2.3); Osmolality Calculated 325 mOsm/kg (285-295); Phosphorus 4.3 mg/dL (2.5-4.5); Sodium 138 mmol/L (136-145); Total Bilirubin 0.6 mg/dL (0.15-1.2); Total Protein 6.2 g/dL (6.6-8.7)
[2021-07-01 10:35] LABS: Anion Gap 17.8 (5-19); Aspartate Amino Transferase 75 U/L (0-40); Potassium 3.8 mmol/L (3.5-5.1)
[2021-07-01 10:37] LABS: Blood Urea Nitrogen 91 mg/dL (8-23)
--- NOTE | 2021-07-01 11:19 | PM.PN ---
Subjective Subjective: Interval history: Patient was seen and examined this morning continue to be lethargic and less responsive , SCR likely has plateaud,WBC is trending down, dominguez was flushed last night, he was started on levophed last night as the blood pressure has been persistently low. His other vitals nad labs have been reviewed. Medications: Reviewed: Yes Vitals/I&O/Wt Last Vital Signs Temp 97.4 F L 07/01/21 04:00 Pulse 77 07/01/21 09:00 Resp 19 H 07/01/21 09:00 BP 93/58 07/01/21 09:00 Pulse Ox 100 07/01/21 09:00 06/30/21 07/01/21 07/01/21 22:59 06:59 14:59 Intake Total 50 / 150 1543.231 / 1693.231 195.288 / 195.288 Output Total 300 / 450 475 / 925 Balance -250 / -300 1068.231 / 768.231 195.288 / 195.288 Weight last 48 hrs Weight 62.188 kg Physical Exam Const: COMMON NORMALS: patient oriented x3 HENMT: COMMON NORMALS: normocephalic and atraumatic HEAD & SCALP: normocephalic and atraumatic Resp: COMMON NORMALS: clear to auscultation bilaterally AUSCULTATION: clear to auscultation bilaterally OTHER: Diminished air entry at the bases Cardio: COMMON NORMALS: regular rate, regular rhythm, S1 normal heart sound present, S2 normal heart sound present, No gallops present (Cardio), No murmurs present (Cardio), No rub (Cardio) and Peripheral pulses 2+ throughout RATE: regular rate RHYTHM: regular rhythm HEART SOUNDS: S1 normal heart sound present and S2 normal heart sound present PERIPHERAL PULSES: Peripheral pulses 2+ throughout GI: COMMON NORMALS: Normal to inspection, nondistended, normoactive bowel sounds present, Soft to palpation, non-tender, No hepatosplenomegaly present and no masses AUSCULTATION: Yes normoactive bowel sounds PALPATION: Yes Soft to palpation and Yes No hepatosplenomegaly present RECTAL EXAM: Yes deferred Extremity: COMMON NORMALS: no clubbing, cyanosis or edema and no pedal edema Neuro: COMMON NORMALS: patient oriented x3 Urinary Catheter Management^: Dominguez: Cath Placed During This Visit: yes Reason for Continuing Indwelling Catheter: Acute Urinary Retention or Obstruction Urinary Catheter Date of Insertion: 06/28/21 Urinary Catheter Time of Insertion: 15:00 Data : 07/01/21 09:02 07/01/21 09:02 A&P Assessment and plan (1) Sepsis: Septic Shock secondary to pyocystis Patient is hypotensive, tachycardic, elevated WBC. Xray chest : Emphysematous change , interstitial prominence, and trace basilar airspace disease. Procalcitonin:0.69 Lactic acid: 1.9 Urine culture:Yeast Blood culture : Cogulase negative staph /3 Initially on ceftriaxone, switched to Zosyn on 06/29 Fluconazole 200 mg I.V Daily Levophed Initially on Midodrine 10 mg po TID, currently stopped. Status: Acute (2) Acute kidney injury superimposed on CKD: MILES on CKD stage III: Likely 2/2 to dehydration and obstructive uropathy as well as sepsis Baseline serum creatinine: 1.7-1.8. There was initial drop in Serum creatinine but in the last 2 days there has been rise current serum creatinine 3.3. likely has plateaud Urine electrolytes ( fena ) Renal ultrasound: Mild bilateral hydronephrosis Intake output charting Monitor BMP. 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 To Follow urology as an outpatient. Status: Acute (4) Pyocystis: Purulent pus draining from bladder: Follow urine culture: Blood culture: 1 out of 3 bottles coagulase-negative staph likely contaminant. Status: Acute (5) UTI (urinary tract infection): Zosyn Status: Acute (6) Metabolic acidosis: Increased anion gap metabolic acidosis: Likely secondary to MILES. Currently on bicarbonate drip @ 50 cc an hour. Monitor BMP Status: Acute (7) Hyponatremia: Hypovolemic hyponatremia: Resolved TSH: 0.72 Serum cortisol: 39 Urine osmolality Serum osmolality. Status: Acute (8) Hyperkalemia: Resolved Monitor BMP Telemetry monitoring Status: Acute (9) Hyperglycemia: Status: Acute (10) Diabetes mellitus, type II: Lantus 10 u sc bedtime. Low-dose sliding scale insulin. Carb consistent diet Monitor fingerstick glucose Status: Acute (11) Hypertension: Status: Acute (12) Ischemic cardiomyopathy: Status: Acute Additional A&P Information CODE STATUS: Full code DVT prophylaxis: Heparin Attestations Medical Necessity Statement*: Patient needs to be in hospital for the management of sepsis and [place] Coding Level of Care Code Acute Network Control Supervisor for Chg Fwd Diagnoses Sepsis A41.9 Acute kidney injury superimposed on CKD N17.9; N18.9 Urethral stricture N35.919 Pyocystis N30.80 UTI (urinary tract infection) N39.0 Metabolic acidosis E87.2 Hyponatremia E87.1 Hyperkalemia E87.5 Hyperglycemia R73.9 Diabetes mellitus, type II E11.9 Hypertension I10 Ischemic cardiomyopathy I25.5
[2021-07-01 11:34] LABS: Glucose Point of Care 349 mg/dL (70-110)
--- NOTE | 2021-07-01 13:08 | PC.SOCIAL ---
IMM UPDATE Gave patient IMM update. Provided him copy of pg 2 of IMM. 07/01/21 @ 1120. Initialed, dated, timed and placed in chart.
[2021-07-01] MEDS: fluconazole premix 200 MG/100 ML PREMIX 100 MG IV (13:13)
[2021-07-01] MEDS: FUROsemide 10 mg/mL SDV 2mL 20 MG IVP (13:14)
[2021-07-01] MEDS: sodium bicarbonate 150 MEQ in dextrose 5% 1,000 ML 50 MEQ IV (13:14)
--- NOTE | 2021-07-01 15:06 | XRR_ITS ---
PROCEDURE INFORMATION: Exam: XR Chest Exam date and time: 07/01/2021 3:06 PM Age: 75 years old Clinical indication: Other vascular access device placement or adjustment; Central line, tunnelled; Prior surgery; Surgery date: 6+ months; Surgery type: Pacer; Additional info: Check central line placement TECHNIQUE: Imaging protocol: XR of the chest. Views: 1 view. COMPARISON: CR XR chest 1V portable [id number] 06/30/2021 10:09 AM FINDINGS: Tubes, catheters and devices: Right central line terminates in the cavoatrial junction. Redemonstrated findings of dual lead AICD/pacer device. Lungs: New ill-defined opacity in the medial left lung base. Pleural spaces: Unremarkable. No pleural effusion. No pneumothorax. Heart/Mediastinum: Unremarkable. No cardiomegaly. Bones/joints: Unremarkable. XR/XR chest 1V portable [id number] IMPRESSION: 1. Right central line terminates at the cavoatrial junction. 2. New ill-defined opacity in the medial left lung base. This could represent atelectasis with developing infection not excluded.
--- NOTE | 2021-07-01 15:25 | PC.NURSE ---
Pt doing 100% on 1L/NC. Put on room air.
--- NOTE | 2021-07-01 16:40 | PM.ACPR ---
Procedure/Consent Time out: Time Out Performed: Yes Consent: Consent for Procedure: Consent obtained from patient Procedure Narrative: Name of the Procedure: Right internal Jugular Central venous catheter placement under ultrasound guidance. Indication: Access for vasopressor use Anesthesiia: Lidocaine 1%, 5 ml Description of the procedure: The right IJ vein was identified with the Ultrasound from collapsibility and lack of pulsatility. The site was prepared using sterile technique. The skin and subcuteneous tissue was anesthetized using lidocaine. The introducer needle was advanced under US guidance till flash back was noted. Dark, non pulsatile blood noted. Using seldinger technique the CVC was put in.Blood return was noted in all ports. Catheter was secured with suture and covered with transparent dressing. Complications: None X-ray: Central line is in appropriate position Acute Procedures Epistaxis Control: Time out performed: Yes
[2021-07-01] MEDS: lidocaine 1% 5 ML in potassium chloride premix 100 ML 25 ML IV (16:43)
[2021-07-01] MEDS: lidocaine 2% viscous 15 mL UDC 10 ML MUCOUS MEM (16:59)
--- NOTE | 2021-07-01 17:42 | PC.NURSE ---
Staff called pt family, spoke with his to update her on pt condition.
[2021-07-01 17:50] LABS: Glucose Point of Care 221 mg/dL (70-110)
[2021-07-01 20:54] LABS: Glucose Point of Care 279 mg/dL (70-110)
[2021-07-01] MEDS: tamsulosin 0.4 mg Capsule 0.8 MG PO (20:59)
[2021-07-01] MEDS: aspirin 81 mg EC Tablet PO (20:59)
[2021-07-01] MEDS: insulin glargine 100 units/1 mL 10 UNIT SUBCUT (21:00)
[2021-07-01] MEDS: sodium chloride 0.9% 1,000 ML 75 ML IV (23:47)
[2021-07-02] VITALS (82 sets, daily range): BP systolic 75–122; BP diastolic 46–77; PULSE 70–130; RESP 15–34; TEMP 36.6–36.8; O2SAT 80–100; BMI 19.3
[2021-07-02 03:29] LABS: Basophils % 0.3 %; Eosinophils # 0.3 10^3/uL (0.0-0.8); Eosinophils % 2.3 %; Hematocrit 37.1 % (42.0-52.0); Hemoglobin 11.7 g/dL (11.7-16.6); Lymphocytes # 1.2 10^3/uL (0.8-4.8); Lymphocytes % 9.3 %; Mean Corpuscular HGB Conc 31.5 g/dL (30.0-36.0); Mean Corpuscular Hemoglobin 28.5 pg (28.0-34.0); Mean Corpuscular Volume 90.5 fL (80-94); Mean Platelet Volume 10.7 fL (7.4-10.4); Monocytes # 0.6 10^3/uL (0.2-0.9); Monocytes % 4.6 %; Neutrophils # 10.62 10^3/uL (1.8-7.7); Neutrophils % 82.1 %; Nucleated Red Blood Cells % 0 %; Platelet Count 110 10^3/cmm (130-400); Red Cell Distribution Width 15.9 % (12.1-15.1); White Blood Count 12.9 10^3/uL (4.0-10.0)
[2021-07-02] MEDS: piperacillin-tazobactam 3.375 GM in sodium chloride 0.9% (plus) 50 ML IV ×2 (03:41→13:41)
[2021-07-02 03:56] LABS: Alanine Aminotransferase 31 U/L (0-41); Albumin Level 2.7 g/dL (3.5-5.2); Alkaline Phosphatase 104 IU/L (40-130); Anion Gap 15.5 (5-19); Aspartate Amino Transferase 44 U/L (0-40); Calcium 8.4 mg/dL (8.5-10.5); Carbon Dioxide 24 mmol/L (22-29); Chloride 106 mmol/L (98-107); Globulin 3.5 g/dL (1.3-4.6); Glucose 165 mg/dL (65-115); Magnesium 2.4 mg/dL (1.7-2.3); Osmolality Calculated 323 mOsm/kg (285-295); Phosphorus 2.6 mg/dL (2.5-4.5); Potassium 3.5 mmol/L (3.5-5.1); Sodium 142 mmol/L (136-145); Total Bilirubin 0.6 mg/dL (0.15-1.2); Total Protein 6.2 g/dL (6.6-8.7)
[2021-07-02 03:58] LABS: Blood Urea Nitrogen 83 mg/dL (8-23)
[2021-07-02] MEDS: levothyroxine 100 mcg Tablet PO (05:24)
--- NOTE | 2021-07-02 07:16 | PC.NURSE ---
Shift Note Frequent safety and comfort rounds continue. Orders and/or nursing care completed as indicated. Patient monitored for response to intervention and treatment(s). Education provided includes medications and hospital equipment. Patient voiced an understanding of teaching. Right IJ central line has NS infusing @75 mls/hr, Levophed infusing @2 mcg/min, & Zosyn infusing @ 12.5 mls/hr. Cabral catheter drained 1000 mls of cloudy bright yellow urine with sediment. Patient has a stage 1 pressure injury to the medical sacrum, redressed this morning. No other skin issues or wounds noted at this time. Patient is alert and oriented x4. Will continue to monitor.
[2021-07-02] MEDS: heparin 5,000 unit/mL INJ 1 mL 5000 UNIT SUBCUT ×2 (08:29→19:58)
[2021-07-02] MEDS: pantoprazole DR 40 mg Tablet PO (08:30)
[2021-07-02] MEDS: cholecalciferol (vitamin D3) 1,000 unit Tablet 1000 UNIT PO (08:30)
[2021-07-02] MEDS: fluconazole premix 200 MG/100 ML PREMIX 100 MG IV (08:35)
[2021-07-02 08:44] LABS: Glucose Point of Care 151 mg/dL (70-110)
--- NOTE | 2021-07-02 09:57 | PC.CHAP ---
Pastoral Care Encounter/Spiritual Assessment Type of Contact [] Declined nuclear medicine specialist visit [] Patient/Family/Request visit [] Outpatient visit [] Follow-up visit [] Physician referral [] Code/Alert [x] Routine visit [] Staff referral [] Actively dying [] Patient sleeping [] Family support [] [] Out of room [] Palliative care [] [] Receiving care in room [] Pre-surgical visit [] Trauma [] Long length of stay [x] ICU visit [] Other: Relational/Emotional Strength [] Patient feels connected with others/family/visitors/staff [] Distress [] Loneliness/isolation [] Abandonment Spirituality of Patient [] Person of Roma [] Attends Quaker of their Roma [] Believes in Prayer [] Reads Bible or Mandaeism materials [] There are Spiritual issues to be addressed [place]ainer Interventions [x] Prayer [] Active listening [] Non-anxious presence [] Spiritual/emotional support [] Crisis/trauma care [] Spiritual counseling [] Bereavement support [] Provided bereavement packet [] Provided Bible/devotional materials [] Provided toy/stuffed animal, coloring book to patient or family member [] Provided Communion [] Anointing/[place] [] Salvation [x] Completed spiritual assessment [] Other: Impact on Illness or Injury [] Angry [] Fearful [] Anxious [] Often cries [] Exhaustion [] Unable to work [] Unable to attend evangelical [] Unable to walk/stand [] Unable to read [] Unable to drive [] Unable to eat/drink [] Unable to sleep [] Unable to be with family [] Patient intubated [] Other: Summary Time spent with patient
--- NOTE | 2021-07-02 10:05 | PC.NURSE ---
Addendum entered by BENI Reynolds 07/02/21 11:12: Patient had total assistance with eating breakfast. Ate around 10% of his breakfast, before refusing to eat more. Said that his missing teeth prevented him from eating faster. Original Note: Patient
--- NOTE | 2021-07-02 10:47 | PC.NURSE ---
Changed telemetry patches and the rhythm changed to regular.
[2021-07-02 11:55] LABS: Glucose Point of Care 189 mg/dL (70-110)
[2021-07-02] MEDS: sodium chloride 0.9% 1,000 ML 50 ML IV (13:40)
--- NOTE | 2021-07-02 17:15 | P.PN_ITS ---
Subjective Subjective: Interval history: Patient was on Levophed running at 2 mics today, was able to tell me his name and date of , very drowsy Normal hemodynamically no overnight events Has been afebrile, leukocytosis improving Creatinine 2.5 today Urine culture growing yeast, will start on fluconazole Blood cultures growing coagulase-negative staph 1/3 bottles Vitals/I&O/Wt Last Vital Signs Temp 97.8 F 07/02/21 13:00 Pulse 86 07/02/21 16:00 Resp 23 H 07/02/21 16:00 BP 96/50 07/02/21 16:00 Pulse Ox 99 07/02/21 16:00 07/02/21 07/02/21 07/02/21 06:59 14:59 22:59 Intake Total 422.390 / 2177.133 2068.865 / 2068.865 50 / 2118.865 Output Total 1000 / 2975 500 / 500 Balance -577.610 / -859.061 5215.865 / 1568.865 50 / 1618.865 Weight last 48 hrs Weight 64.438 kg Weight 62.188 kg Physical Exam Narrative: EXAM NARRATIVE: Patient was seen and examined supine,, saturating well Able to tell me his date of Abdomen soft nontender no signs of peritonitis No acute neurological findings of stroke Verbally redirectable Cognitive impairment Patient was leaning towards the left side with a pillow on his right side of his back Cabral catheter draining clear yellow urine No acute respiratory distress Urinary Catheter Management^: Cabral: Cath Placed During This Visit: yes Reason for Continuing Indwelling Catheter: Accurate Measurement of Urinary Output in Critically Ill Patients Urinary Catheter Date of Insertion: 06/28/21 Urinary Catheter Time of Insertion: 15:00 Data : 07/02/21 03:16 07/02/21 03:16 Micro: Microbiology 06/28/21 03:59 Urine Culture - Preliminary Urine,Clean Catch Yeast 06/26/21 15:49 Blood Culture - Final Blood Coagulase negativ staphylococc 06/26/21 15:40 Blood Culture - Final Blood NO GROWTH AFTER 5 DAYS A&P Assessment and plan (1) Sepsis: Status: Acute (2) Urethral stricture: Status: Acute (3) Pyocystis: Status: Acute (4) Bilateral hydronephrosis: Status: Acute (5) Acute urinary retention: Status: Acute (6) Pyocystis: Status: Acute (7) UTI (urinary tract infection): Status: Acute (8) Left ventricular aneurysm: Status: Acute (9) Acute kidney injury superimposed on CKD: Status: Acute (10) History of implantable cardioverter-defibrillator (ICD) insertion: Status: Acute (11) Diabetes mellitus, type II: Status: Acute Additional A&P Information Pyocystitis with septic shock Central line placed on 07/01 Urine culture growing yeast, blood culture gram-negative staph Patient is on vasopressors 2 mics Map ranging between 65-70 Central line placed by Dr. 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 To Follow urology as an outpatient. Acute on chronic kidney disease secondary to urethral stricture Creatinine seems to be gradually improving Acidosis improved no need of bicarb No electrolyte imbalance Adequate urine output, polyuric 3 L output Can be given boluses if becomes hypotensive considering polyuria Left ventricular aneurysm, ventricular arrhythmia status post cardiac arrest, severely reduced action fraction status post AICD placement No active chest pain Currently on heparin DVT prophylactic regimen Type II diabetic Insulin, mechanical soft diet Anorexia 50 pound weight loss as per his which his is attributing to not eating enough In the hospital he has been eating 25% of his meals only Avoid mirtazapine because of history of fall and hip fracture Gait ataxia Hip osteoarthritis Patient has ability to keep his legs near for about 5 seconds however muscle mass loss appreciated Does not have typical strokelike findings Full code Consistent carb diet DVT prophylaxis Heparin Attestations Medical Necessity Statement*: Will monitor 1 more day in ICU and transferred to [facility], if is not requiring vasopressors Time Spent in Patient Care: 16 - 35 minutes Coding Level of Care Code Acute Quality Control Engineer for Chg Fwd Diagnoses Sepsis A41.9 Urethral stricture N35.919 Pyocystis N30.80 Bilateral hydronephrosis N13.30 Acute urinary retention R33.8 Pyocystis N30.80 UTI (urinary tract infection) N39.0 Left ventricular aneurysm I25.3 Acute kidney injury superimposed on CKD N17.9; N18.9 History of implantable cardioverter-defibrillator (ICD) insertion Z95.810 Diabetes mellitus, type II E11.9
[2021-07-02 17:23] LABS: Glucose Point of Care 226 mg/dL (70-110)
--- NOTE | 2021-07-02 18:52 | PC.NURSE ---
Shift Note Frequent safety and comfort rounds continue. Orders and/or nursing care completed as indicated. Patient monitored for response to intervention and treatment(s). The Levophed was put on hold to see if the blood pressure would stay above a map of 65 without it. Patient's blood pressure was borderline to a map of 65. Was able to stay off Levophed. The normal saline was decreased to 50 mL/hr. Patient has a stage II pressure ulcer on lower sacrum and a skin tear on right hip. Both have been dressed with Coverderm. Education provided to patient and about treatment plan.
[2021-07-02 19:58] LABS: Glucose Point of Care 190 mg/dL (70-110)
[2021-07-02] MEDS: insulin glargine 100 units/1 mL 10 UNIT SUBCUT (20:03)
[2021-07-02] MEDS: aspirin 81 mg EC Tablet PO (20:03)
[2021-07-02] MEDS: tamsulosin 0.4 mg Capsule 0.8 MG PO (20:03)
[2021-07-03] VITALS (54 sets, daily range): BP systolic 75–114; BP diastolic 36–75; PULSE 70–143; RESP 14–30; TEMP 35.9–36.1; O2SAT 93–100; BMI 19.4
[2021-07-03] MEDS: piperacillin-tazobactam 3.375 GM in sodium chloride 0.9% (plus) 50 ML IV ×2 (02:31→10:58)
[2021-07-03] MEDS: lidocaine 2% viscous 15 mL UDC 10 ML MUCOUS MEM (02:31)
[2021-07-03 06:31] LABS: Basophils % 0.2 %; Eosinophils # 0.2 10^3/uL (0.0-0.8); Eosinophils % 2.2 %; Hematocrit 36.2 % (42.0-52.0); Hemoglobin 11.1 g/dL (11.7-16.6); Lymphocytes # 1.2 10^3/uL (0.8-4.8); Lymphocytes % 12.3 %; Mean Corpuscular HGB Conc 30.7 g/dL (30.0-36.0); Mean Corpuscular Hemoglobin 28.3 pg (28.0-34.0); Mean Corpuscular Volume 92.3 fL (80-94); Mean Platelet Volume 10.6 fL (7.4-10.4); Monocytes # 0.5 10^3/uL (0.2-0.9); Monocytes % 5.4 %; Neutrophils # 7.78 10^3/uL (1.8-7.7); Neutrophils % 78.1 %; Nucleated Red Blood Cells % 0 %; Platelet Count 89 10^3/cmm (130-400); Red Blood Count 3.92 10^6/uL (4.1-5.3)
[2021-07-03 06:53] LABS: Anion Gap 12.2 (5-19); Blood Urea Nitrogen 70 mg/dL (8-23); Calcium 8.2 mg/dL (8.5-10.5); Carbon Dioxide 23 mmol/L (22-29); Chloride 113 mmol/L (98-107); Glucose 108 mg/dL (65-115); Osmolality Calculated 321 mOsm/kg (285-295); Potassium 3.2 mmol/L (3.5-5.1); Sodium 145 mmol/L (136-145)
[2021-07-03 08:09] LABS: Glucose Point of Care 102 mg/dL (70-110)
[2021-07-03] MEDS: levothyroxine 100 mcg Tablet PO (08:19)
[2021-07-03] MEDS: cholecalciferol (vitamin D3) 1,000 unit Tablet 1000 UNIT PO (08:19)
[2021-07-03] MEDS: pantoprazole DR 40 mg Tablet PO (08:19)
[2021-07-03] MEDS: heparin 5,000 unit/mL INJ 1 mL 5000 UNIT SUBCUT (08:19)
--- NOTE | 2021-07-03 09:01 | PC.NURSE ---
Shift Note Frequent safety and comfort rounds continue. Orders and/or nursing care completed as indicated. Patient monitored for response to intervention and treatment(s). Education provided includes treatment plan. Patient voiced understanding to teaching but needs reinforcement. Patient is alert and oriented but slightly confused. He has a skin tear to the right hip that is open to air and a stage 2 medial sacrum pressure injury that has a dressing in place. No other wounds or skin issues noted at this time. Patient is on room air. Right IJ central line has NS infusing @ 50mls/hr. Cabral catheter drained 1250 mls of cloudy bright yellow urine with sediment. Will continue to monitor.
[2021-07-03] MEDS: fluconazole premix 200 MG/100 ML PREMIX 100 MG IV (09:06)
[2021-07-03] MEDS: sodium chloride 0.9% 1,000 ML 50 ML IV (09:32)
--- NOTE | 2021-07-03 11:05 | PC.SOCIAL ---
IMM UPDATE Gave patient's verbal IMM update via phone. She verbalized understanding. 07/03/21 @ 1102. Initialed, dated, timed and placed in chart.
[2021-07-03 12:19] LABS: Glucose Point of Care 215 mg/dL (70-110)
--- NOTE | 2021-07-03 12:29 | PC.NURSE ---
PT got patient up to commode and chair. Blood pressure Map at 61 at 1215, while patient is up to chair.
--- NOTE | 2021-07-03 14:13 | P.PN_ITS ---
Subjective Subjective: Interval history: Patient to be transferred out of ICU, vasopressors off, his systolic blood pressure was 95, diastolic 45 I checked his blood pressure cuff which was size 11, requested nurse to change blood pressure cuff size to 10 repeat blood pressure 117/50 mmHg, to be transferred out of ICU to [facility] at the bedside She does not want him to go to any group home she wants to take care of him at home stating that they have hospital bed bedside commode and a rolling walker at home Patient is feeling better, he was eating his lunch when I saw him Was saturating well on room air is stating that they never resumed Coumadin because it was stopped on reque st of Dr. Mak Vitals/I&O/Wt Last Vital Signs Temp 96.6 F L 07/03/21 12:15 Pulse 107 H 07/03/21 12:15 Resp 27 H 07/03/21 12:15 BP 89/48 07/03/21 12:15 Pulse Ox 98 07/03/21 12:15 07/02/21 07/03/21 07/03/21 22:59 06:59 14:59 Intake Total 573 / 2641.865 50 / 2691.865 2274.333 / 2274.333 Output Total 425 / 925 1250 / 2175 Balance 148 / 1716.865 -1200 / 515.562 9247.333 / 2274.333 Weight last 48 hrs Weight 64.977 kg Weight 64.438 kg Physical Exam Narrative: EXAM NARRATIVE: tPatient was sitting in his chair eating lunch Awake and alert oriented x3 No active neurological deficit Bilateral diminished breath sounds however saturating well on room air S1, S2 sinus to 106 Blood pressure 117/50 mmHg Lower extremity no edema Cabral catheter draining cloudy urine Soft abdomen Urinary Catheter Management^: Cabral: Cath Placed During This Visit: yes Reason for Continuing Indwelling Catheter: Accurate Measurement of Urinary Output in Critically Ill Patients Urinary Catheter Date of Insertion: 06/28/21 Urinary Catheter Time of Insertion: 15:00 Data : 07/03/21 06:00 07/03/21 06:00 Micro: Microbiology 06/28/21 03:59 Urine Culture - Preliminary Urine,Clean Catch Yeast A&P Assessment and plan (1) Sepsis: Status: Acute (2) Urethral stricture: Status: Acute (3) Pyocystis: Status: Acute (4) 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: Status: Acute (5) Bilateral hydronephrosis: Status: Acute (6) Acute urinary retention: Status: Acute (7) Pyocystis: Status: Acute (8) UTI (urinary tract infection): Status: Acute (9) Left ventricular aneurysm: Status: Acute (10) Acute kidney injury superimposed on CKD: Status: Acute (11) Metabolic acidosis: Status: Acute Additional A&P Information Septic shock Pyelocystitis Sepsis resolved, shock resolved Blood pressure cuff size 10 was used which showed blood pressure 117/45 mmHg Leukocytosis improved afebrile Urine culture growing yeast blood culture most likely contaminant Discontinue antibiotics and continue antifungal for now Switch antimicrobials to p.o. Urethral stricture status post Cabral catheter placement by Dr. Lew, patient will see Dr. Lew outpatient before making decision regarding removal of Cabral cath Acute on chronic kidney disease: Creatinine seems to be improving acidosis improved Left ventricular aneurysm Ventricular arrhythmia status post cardiac arrest status post AICD placement No active decompensation Type II diabetic Mechanical soft diet, insulin Anorexia 50 pounds of weight loss in the last few months Patient not able to finish more than 20% of his meals PT evaluation reviewed: Recommended SNF, is stating that they would avoid SNF and would like to take him home with home health services Persistent carb diet DVT prophylaxis: Heparin Attestations Medical Necessity Statement*: Anticipating discharge within next 48 hours Time Spent in Patient Care: 16 - 35 minutes Coding Level of Care Code Acute Pulp Machine Operator for g Fwd Diagnoses Sepsis A41.9 Urethral stricture N35.919 Pyocystis N30.80 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
--- NOTE | 2021-07-03 15:06 | PC.NUTR ---
Nutrition follow up: Po intakes averaging 26% X past [address] Ye's note need for mechanical soft diet, however GI Soft diet currently in place. Clarified with nurse. Continue to recommend DIGITAL IMAGER eval given previous nurse reports of concern over aspiration risk, however this RD made recommendation to Dr. Daugherty on 06/30/21 but has not been ordered at this time. Recommend to encourage intakes of meals and Glucerna supplements to optimize nutrition and promote wound healing. See full RD assessment for further details.
--- NOTE | 2021-07-03 15:45 | PC.NURSE ---
Patient transferred to Med Surg bed 279. Report given to HYACINTH Haile. Transferred via wheelchair. accompanied.
[2021-07-03 20:34] LABS: Glucose Point of Care 266 mg/dL (70-110)
[2021-07-03] MEDS: insulin glargine 100 units/1 mL 10 UNIT SUBCUT (21:13)
[2021-07-03] MEDS: tamsulosin 0.4 mg Capsule 0.8 MG PO (21:14)
[2021-07-03] MEDS: warfarin 10 mg Tablet PO (21:55)
[2021-07-04] VITALS (9 sets, daily range): BP systolic 93–112; BP diastolic 49–72; PULSE 82–92; RESP 16–20; TEMP 36.1–36.7; O2SAT 98–100
[2021-07-04 04:01] LABS: Basophils % 0.3 %; Eosinophils # 0.3 10^3/uL (0.0-0.8); Eosinophils % 2.8 %; Hematocrit 35.7 % (42.0-52.0); Lymphocytes # 1.4 10^3/uL (0.8-4.8); Lymphocytes % 14.9 %; Mean Corpuscular HGB Conc 30.8 g/dL (30.0-36.0); Mean Corpuscular Hemoglobin 28.6 pg (28.0-34.0); Monocytes # 0.5 10^3/uL (0.2-0.9); Monocytes % 5.5 %; Neutrophils % 74.9 %; Nucleated Red Blood Cells % 0 %; Platelet Count 103 10^3/cmm (130-400); Red Blood Count 3.84 10^6/uL (4.1-5.3); Red Cell Distribution Width 16.3 % (12.1-15.1); White Blood Count 9.6 10^3/uL (4.0-10.0)
[2021-07-04 04:02] LABS: INR 1.11 (0.8-1.2)
[2021-07-04 04:18] LABS: Anion Gap 12.8 (5-19); Blood Urea Nitrogen 63 mg/dL (8-23); Calcium 8.4 mg/dL (8.5-10.5); Carbon Dioxide 22 mmol/L (22-29); Chloride 115 mmol/L (98-107); Glucose 80 mg/dL (65-115); Osmolality Calculated 319 mOsm/kg (285-295); Potassium 3.8 mmol/L (3.5-5.1); Sodium 146 mmol/L (136-145)
[2021-07-04] MEDS: levothyroxine 100 mcg Tablet PO (05:38)
[2021-07-04] MEDS: levoFLOXacin 750 mg Tablet PO (05:38)
[2021-07-04 06:31] LABS: Glucose Point of Care 115 mg/dL (70-110)
[2021-07-04] MEDS: fluconazole 100 mg Tablet PO (08:00)
[2021-07-04] MEDS: pantoprazole DR 40 mg Tablet PO (08:00)
[2021-07-04] MEDS: cholecalciferol (vitamin D3) 1,000 unit Tablet 1000 UNIT PO (08:00)
[2021-07-04] MEDS: sodium chloride 0.9% 250 ML IV (12:12)
--- NOTE | 2021-07-04 12:22 | P.PN_ITS ---
Subjective Subjective: Interval history: Patient was transferred out of ICU yesterday. He was getting DVT prophylaxis Heparin considering history of aneurysm I have started him on Coumadin. Today INR 1.1 He is very lethargic and tired needing 2-3 person assist for ambulation and is adamant that she would like to take him home stating that she has all the equipment and help for him. Updated caser up and physical therapist. Will touch base with his today again to reevaluate disposition plan. When I saw him he was tilted towards his left side, did not eat breakfast, very lethargic and tired able to comprehend my questions and respond appropriately no strokelike symptoms were noted Vitals/I&O/Wt Last Vital Signs Temp 97.9 F 07/04/21 08:16 Pulse 86 07/04/21 08:16 Resp 20 H 07/04/21 08:16 BP 98/57 07/04/21 08:16 Pulse Ox 98 07/04/21 08:16 07/03/21 07/04/21 07/04/21 22:59 06:59 14:59 Intake Total 373.333 / 2647.666 Output Total 1000 / 1450 600 / 600 Balance 373.333 / 2197.666 -1000 / 1197.666 -600 / -600 Weight last 48 hrs Weight 66.791 kg Weight 64.977 kg Physical Exam Narrative: EXAM NARRATIVE: Very lethargic and tired elderly male emaciated malnourished No strokelike symptoms Awake alert oriented x3 GCS 15 Right-sided central line EOMI, PERRLA S1, S2, sinus rhythm Clinically looks dehydrated Cabral catheter draining yellow urine Abdomen soft Bilateral breath sounds saturating well on room air Urinary Catheter Management^: Cabral: Cath Placed During This Visit: yes Reason for Continuing Indwelling Catheter: Other Urinary Catheter Date of Insertion: 06/28/21 Urinary Catheter Time of Insertion: 15:00 Data : 07/04/21 03:02 07/04/21 03:02 A&P Assessment and plan (1) Sepsis: Status: Acute (2) Urethral stricture: Status: Acute (3) Pyocystis: Status: Acute (4) 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 Lew Hyponatremia: 2 L water deficit secondary to poor p.o. intake Start him on fluids no maintenance secondary to reduced action fraction heart failure closely monitor for any signs of fluid overload Left ventricular aneurysm with intracavitary thrombus: Start him on Coumadin INR 1.1 Acute on chronic kidney disease creatinine plateaued at 2.1 With hyponatremia clinical signs of dehydration, hydrating him today Anorexia with significant weight loss in last few months Poor p.o. 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
--- NOTE | 2021-07-04 14:36 | PC.NUTR ---
Nutrition consult: Received consult from MD for anorexia and wt loss. Notified MD that RD has assessed pt multiple times, but would re-evaluate for additional options. Spoke with pt's , and obtained additional food preferences for pt and have added to dietary information. Continue to recommend swallow eval per YARN BLEACHING MACHINE OPERATOR, notifed Dr. Ye. Continue to recommend Glucerna, as reports pt enjoys it. See full RD assessments for further details.
[2021-07-04] MEDS: warfarin 10 mg Tablet PO (14:40)
[2021-07-04] MEDS: dextrose 5%-sod chloride 0.45% 1,000 ML 30 ML IV (14:41)
[2021-07-04 15:02] LABS: Glucose Point of Care 233 mg/dL (70-110)
[2021-07-04] MEDS: tamsulosin 0.4 mg Capsule 0.8 MG PO (20:23)
[2021-07-04 21:08] LABS: Glucose Point of Care 284 mg/dL (70-110)
[2021-07-04] MEDS: insulin glargine 100 units/1 mL 10 UNIT SUBCUT (21:13)
[2021-07-04] MEDS: acetaminophen 325 mg Tablet 650 MG PO (23:29)
[2021-07-05 03:25] VITALS: BP 110/67; PULSE 80; RESP 16; TEMP 36.5; O2SAT 98
[2021-07-05 03:35] LABS: Basophils % 0.2 %; Eosinophils # 0.2 10^3/uL (0.0-0.8); Eosinophils % 2.3 %; Lymphocytes # 1.3 10^3/uL (0.8-4.8); Lymphocytes % 12.7 %; Mean Corpuscular HGB Conc 30.3 g/dL (30.0-36.0); Mean Corpuscular Hemoglobin 28.7 pg (28.0-34.0); Mean Corpuscular Volume 94.6 fL (80-94); Mean Platelet Volume 10.8 fL (7.4-10.4); Monocytes # 0.6 10^3/uL (0.2-0.9); Monocytes % 6.3 %; Neutrophils # 7.68 10^3/uL (1.8-7.7); Neutrophils % 76.1 %; Nucleated Red Blood Cells % 0 %; Platelet Count 108 10^3/cmm (130-400); Red Blood Count 3.49 10^6/uL (4.1-5.3); Red Cell Distribution Width 16.5 % (12.1-15.1); White Blood Count 10.1 10^3/uL (4.0-10.0)
[2021-07-05 03:54] LABS: Anion Gap 10.9 (5-19); Blood Urea Nitrogen 49 mg/dL (8-23); Calcium 8.1 mg/dL (8.5-10.5); Carbon Dioxide 21 mmol/L (22-29); Chloride 108 mmol/L (98-107); Glucose 186 mg/dL (65-115); INR 2.23 (0.8-1.2); Osmolality Calculated 300 mOsm/kg (285-295); Potassium 3.9 mmol/L (3.5-5.1); Sodium 136 mmol/L (136-145)
[2021-07-05] MEDS: levothyroxine 100 mcg Tablet PO (05:08)
--- NOTE | 2021-07-05 05:41 | PC.NURSE ---
shift note patient monitored frequently, repositioned side to side every 2 hours, duoderm applied to sacral area and new optifoam applied to right hip, patient cooperative, loose stool x1, verbalized pain x1, tylenol administered and patient verbalized relief, dominguez patent, drainage gradually increasing in cloudiness, vitals remains stable this shift.
[2021-07-05 06:00] VITALS: PULSE 70
[2021-07-05 06:27] LABS: Glucose Point of Care 157 mg/dL (70-110)
[2021-07-05 07:39] VITALS: BP 97/51; PULSE 78; RESP 16; TEMP 36.6; O2SAT 98
[2021-07-05] MEDS: pantoprazole DR 40 mg Tablet PO (08:45)
[2021-07-05] MEDS: cholecalciferol (vitamin D3) 1,000 unit Tablet 1000 UNIT PO (08:45)
[2021-07-05] MEDS: fluconazole 100 mg Tablet PO (08:45)
[2021-07-05 10:15] LABS: Glucose Point of Care 301 mg/dL (70-110)
[2021-07-05] MEDS: albumin 12.5 GM/250 ML VIAL IV (10:27)
--- NOTE | 2021-07-05 11:07 | PC.CHAP ---
Pastoral Care Encounter/Spiritual Assessment Type of Contact [] Declined plunger scoop operator visit [] Patient/Family/Request visit [] Outpatient visit [] Follow-up visit [] Physician referral [] Code/Alert [x] Routine visit [] Staff referral [] Actively dying [] Patient sleeping [] Family support [] [] Out of room [] Palliative care [] [x] Receiving care in room [] Pre-surgical visit [] Trauma [] Long length of stay [] ICU visit [] Other: Relational/Emotional Strength [x] Patient feels connected with others/family/visitors/staff [] Distress [] Loneliness/isolation [] Abandonment Spirituality of Patient [x] Person of Roma [] Attends Yarsani of their Roma [x] Believes in Prayer [] Reads Bible or Zoroastrianism materials [] There are Spiritual issues to be addressed Card Cutter Interventions [x] Prayer [x] Active listening [x] Non-anxious presence [x] Spiritual/emotional support [] Crisis/trauma care [x] Spiritual counseling [] Bereavement support [] Provided bereavement packet [] Provided Bible/devotional materials [] Provided toy/stuffed animal, coloring book to patient or family member [] Provided Communion [] Anointing/Casey [] Salvation [x] Completed spiritual assessment [] Other: Impact on Illness or Injury [] Angry [] Fearful [x] Anxious [] Often cries [] Exhaustion [x] Unable to work [] Unable to attend rastafari [] Unable to walk/stand [] Unable to read [] Unable to drive [] Unable to eat/drink [] Unable to sleep [] Unable to be with family [] Patient intubated [] Other: Summary he is weak doesn't know about his health or when he can go home has negative attiitude Time spent with patient 10 mins
--- NOTE | 2021-07-05 11:48 | PC.SOCIAL ---
IMM Update IMM updated with patient. Verbalized an understanding. Copy Pg. 2 provided. Initialed, dated, timed, and placed in chart.
[2021-07-05 11:51] VITALS: BP 100/64; PULSE 83; RESP 16; TEMP 36.4; O2SAT 99
--- NOTE | 2021-07-05 13:28 | P.DS_ITS ---
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 Came in with chief complaint of generalized weakness, which has worsened in the last week, to the extent that he was not ambulating, was having difficulty getting out of bed, at baseline he walks with a walker or cane, poor oral intake. Upon arrival in the ER he was worked up for above-mentioned complaint: Imaging studies: CT chest abd pel wo con: Severe emphysema with no pneumonia.Fullness within each renal pelvis may be parapelvic cysts, solid neoplasm not excluded. The ureters are slightly prominent but there is no adjacent inflammation. Pertinent labs: WBC 17,000, H&H:16/51, platelet count:363, serum sodium: 121, serum potassium:5.6, BUN/ serum creatinine: 124/4.2 , random blood sugar:572. Troponin T: Baseline: 32, 2h : 33, 2h d : 1.33, 6 h : 23 , 6-hour delta: -8.06. proBNP: 66460, lipase:281, serum ketones: Negative , serum bicarb:12. Patient received 10 units of regular insulin in ER, as well as 1 L normal saline bolus. Patient has been started on half-normal saline with 50 mEq of bicarb at the rate of 75 cc an hour. Hospital course Patient was admitted for management of septic shock related to pyocystitis, central line was placed on 07/01. Bedside cystoscopy was done on 06/28, Cabral catheter was placed, urethral stricture was found, 14 Palestinian catheter was placed over guidewire. Large amount of purulent material was drained from the bladder. Blood culture coagulase-negative staph most likely contaminant, initially he was on ceftriaxone which was switched to Zosyn, fluconazole was added after finding yeast, he required vasopressors as well in ICU. Vasopressors were titrated off after addition of midodrine. Also noticed that his blood pressure cuff was size 11 and when size 10 was used according to his arm size history of pressure reading was between 1 10-1 20 systolic millimeter mercury. He suffered from acute on chronic kidney disease, creatinine gradually improved 4 left ventricular aneurysm with intracavitary thrombus he was started on Coumadin Speech evaluation was done, no aspiration was found however because of poor dentition patient wanted to try mechanical soft diet PT recommended long term however and patient adamant that he would like to go home as they have hospital bed, wheelchair bedside commode at home. Cabral catheter will be evaluated by Dr. Lew it will not be removed at the time of discharge. He will be discharged on 2-week regimen of Levaquin and fluconazole INR on day of discharge 2.23 He was given prescription to get INR checked every other day and fax documentation to Dr. Mak Who is his electronic organ mechanic Hemoglobin 10.0 Creatinine 1.7 Central line will be removed Physical Exam Narrative: EXAM NARRATIVE: elderly male emaciated malnourished No strokelike symptoms Awake alert oriented x3 GCS 15 Right-sided central line EOMI, PERRLA S1, S2, sinus rhythm Clinically looks dehydrated Cabral catheter draining yellow urine Abdomen soft Bilateral breath sounds saturating well on room air Urinary Catheter Management^: Cabral: Cath Placed During This Visit: yes Reason for Continuing Indwelling Catheter: Other Urinary Catheter Date of Insertion: 06/28/21 Urinary Catheter Time of Insertion: 15:00 Urinary Catheter Management^: Cabral: Cath Placed During This Visit: yes Reason for Continuing Indwelling Catheter: Acute Urinary Retention or Obstruction Urinary Catheter Date of Insertion: 06/28/21 Urinary Catheter Time of Insertion: 15:00 Discharge Data Data Completed and Pending: Completed Studies During Hospitalization Category Date Time Status CT chest abd pel wo con Stat Cat Scan 06/26/21 13:20 Completed CXRP [XR chest 1V portable [id number]] R outine Exams 07/01/21 15:06 Completed XR chest 1V irasema ble [id number] Routine Exams 06/30/21 07:58 Completed XR chest 1V irasema ble [id number] Stat Exams 06/26/21 10:55 Completed US renal BI* [id number] Routine Ultrasound 06/27/21 20:54 Completed Pending at discharge Category Date Time Status Miscellaneous Amaya t Routine Lab 07/02/21 08:00 Received Prothrombin Time INR AM LABS Lab 07/06/21 04:00 Ordered Urine Culture Sta t Lab 06/28/21 03:59 Results Labs from last 24 hours 07/05/21 07/05/21 07/05/21 10:02 06:12 03:17 WBC RBC Hgb Hct MCV MCH MCHC RDW Plt Count MPV Neut % (Auto) Lymph % (Auto) Routt % (Auto) Eos % (Auto) Baso % (Auto) Neut # (Auto) Lymph # (Auto) Routt # (Auto) Eos # (Auto) Baso # (Auto) Nucleated RBC % (a uto) Nucleated RBCs # PT INR Sodium 136 Potassium 3.9 Chloride 108 H Carbon Dioxide 21 L Anion Gap 10.9 BUN 49 H Creatinine 1.7 H GFR Calculation Not Reportable Glucose 186 H POC Glucose 301 H 157 H Calculated Osmolal ity 300 H Calcium 8.1 L 07/05/21 07/05/21 07/04/21 03:17 03:17 21:05 WBC 10.1 H RBC 3.49 L Hgb 10.0 L Hct 33.0 L MCV 94.6 H MCH 28.7 MCHC 30.3 RDW 16.5 H Plt Count 108 L MPV 10.8 H Neut % (Auto) 76.1 Lymph % (Auto) 12.7 Routt % (Auto) 6.3 Eos % (Auto) 2.3 Baso % (Auto) 0.2 Neut # (Auto) 7.68 Lymph # (Auto) 1.3 Routt # (Auto) 0.6 Eos # (Auto) 0.2 Baso # (Auto) 0.0 Nucleated RBC % (a uto) 0 Nucleated RBCs # 0.0 PT 25.10 H INR 2.23 H Sodium Potassium Chloride Carbon Dioxide Anion Gap BUN Creatinine GFR Calculation Glucose POC Glucose 284 H Calculated Osmolal ity Calcium 07/04/21 14:58 WBC RBC Hgb Hct MCV MCH MCHC RDW Plt Count MPV Neut % (Auto) Lymph % (Auto) Routt % (Auto) Eos % (Auto) Baso % (Auto) Neut # (Auto) Lymph # (Auto) Routt # (Auto) Eos # (Auto) Baso # (Auto) Nucleated RBC % (a uto) Nucleated RBCs # PT INR Sodium Potassium Chloride Carbon Dioxide Anion Gap BUN Creatinine GFR Calculation Glucose POC Glucose 233 H Calculated Osmolal ity Calcium Vitals: Last Vital Signs Temp 97.6 F 07/05/21 11:51 Pulse 83 07/05/21 11:51 Resp 16 07/05/21 11:51 BP 100/64 07/05/21 11:51 Pulse Ox 99 07/05/21 11:51 Discharge Plan Discharge Patient Disposition: Home Health Service Condition: Fair Prescriptions: New fluconazole 100 mg Tablet 100 mg PO DAILY 14 Days Qty: 14 RF: 0 levofloxacin 750 mg Tablet 750 mg PO DAILY 5 Days Qty: 5 RF: 0 Jantoven 4 mg Tablet 4 mg PO DAILY@1400 30 Days Qty: 30 RF: 0 Continued levothyroxine 100 mcg tablet 100 mcg PO .DAILY EXCEPT ON SUN RF: 0 rosuvastatin 20 mg tablet 20 mg PO BEDTIME RF: 0 aspirin [Adult Low Dose Aspirin] 81 mg tablet,delayed release (DR/EC) 81 mg PO BEDTIME RF: 0 magnesium 2 tab PO DAILY RF: 0 tamsulosin 0.4 mg capsule 0.8 mg PO BEDTIME RF: 0 metoprolol tartrate 50 mg tablet 50 mg PO BID Qty: 180 RF: 3 multivitamin Tablet 1 tab PO DAILY RF: 0 Discontinued glimepiride 4 mg tablet See Rx Instructions .ROUTE .COMPLEX RF: 0 glimepiride 1 mg tablet 1 mg PO QAM RF: 0 cholecalciferol (vitamin D3) [Vitamin D3] 25 mcg (1,000 unit) Capsule 25 mcg PO DAILY RF: 0 warfarin 3 mg tablet See Rx Instructions .ROUTE .COMPLEX RF: 0 Discharge Orders: Discharge Order (Routine); Ordered 07/05/21 Ordered By: Medina Ye Other Ambulatory Orders: Prothrombin Time INR (Q48H) Timeframe: 20210711 Facility: [facility] - Location: Lab - Main Lab Ordered By: Medina Ye Prothrombin Time INR (Q48H) Timeframe: 20210713 Facility: [facility] - Location: Lab - Main Lab Ordered By: Medina Ye Prothrombin Time INR (Q48H) Timeframe: 20210715 Facility: [facility] - Location: Lab - Main Lab Ordered By: Medina Ye Referrals: Filipe Mak MD [Physician] - 07/11/21 3:00 pm Discharge Diet: Soft Mechanical Discharge Activity: Increase activity as tolerated Patient Instructions: Warfarin (By mouth), Fluconazole (By mouth), Levofloxacin (By mouth), Cabral Catheter Care, Hyponatremia, Opioid Safety Activity Restrictions/Additional Instructions: Finished 14 days of fluconazole 5 days of antibiotics You can start taking Coumadin, please take Coumadin at same time every day and get INR checked Discharge Attestations Time Spent in Discharge Care*: less than 30 min Quality Metrics Clinical Quality Measures During this hospital stay, did patient experience: None Coding Level of Care Code Acute [facility] DC note Diagnoses Sepsis A41.9 Urethral stricture N35.919 Pyocystis N30.80 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
[2021-07-05] MEDS: warfarin 4 mg Tablet PO (15:58)
--- NOTE | 2021-07-05 16:40 | PC.NURSE ---
Irrigated dominguez and taught pt's how to empty. Removed IJ, dressing applied.
[2021-07-05 16:51] VITALS: BP 100/64; PULSE 83; RESP 16; TEMP 36.4; O2SAT 99
--- NOTE | 2021-07-06 16:48 | PC.SOCIAL ---
Order given by Dr Ye to call in needles for lantus insulin needles. Also verbal orders for wound care to stage 1-2 sacral wound okay to use polymem and optifoam. BP is running low per Mckenzie nurse report and unable to reach Dr Kamara. Dr Ye gave order to do 1/2 50mg tablet twice daily and hold if SBP is less than 105 or HR less than 60. Will need to monitor BP and if starts to increase further orders per PCP. Updated nurse Mckenzie and provided verbal orders per Dr Ye.
== END 2021-07-05 17:20 | disposition home or self-care (01) | DRG 871 ==
LOC: ER 12:48 → MEDSURG 19:50 → ICU 06-30 18:32 → MEDSURG 07-03 15:42
PROVIDERS: Physician Assistant; Admitting Provider Internal Medicine; Emergency Provider Family Medicine; PCP Family Medicine; Visit Provider Internal Medicine
DX: A41.9 Sepsis, unspecified organism (principal); R65.21 Severe sepsis with septic shock; N17.9 Acute kidney failure, unspecified; E87.1 Hypo-osmolality and hyponatremia; E87.2 Acidosis; N13.30 Unspecified hydronephrosis; I25.3 Aneurysm of heart; I13.0 Hypertensive heart and chronic kidney disease with heart failure and stage 1 through stage 4 chronic kidney disease, or unspecified chronic kidney disease; I25.10 Atherosclerotic heart disease of native coronary artery without angina pectoris; E11.65 Type 2 diabetes mellitus with hyperglycemia; E11.22 Type 2 diabetes mellitus with diabetic chronic kidney disease; E78.5 Hyperlipidemia, unspecified; R63.0 Anorexia; I25.5 Ischemic cardiomyopathy; E86.1 Hypovolemia; E86.0 Dehydration; Z20.822 Contact with and (suspected) exposure to COVID-19; N18.30 Chronic kidney disease, stage 3 unspecified; I50.9 Heart failure, unspecified; J43.9 Emphysema, unspecified; E87.5 Hyperkalemia; N99.115 Postprocedural fossa navicularis urethral stricture; E03.9 Hypothyroidism, unspecified; N30.80 Other cystitis without hematuria; Z68.20 Body mass index [BMI] 20.0-20.9, adult; Z95.0 Presence of cardiac pacemaker; Z87.440 Personal history of urinary (tract) infections; Z96.642 Presence of left artificial hip joint; Z82.49 Family history of ischemic heart disease and other diseases of the circulatory system; Z82.3 Family history of stroke; Z83.3 Family history of diabetes mellitus; Z80.1 Family history of malignant neoplasm of trachea, bronchus and lung; Z79.890 Hormone replacement therapy; Z87.891 Personal history of nicotine dependence; Z79.4 Long term (current) use of insulin; Z79.01 Long term (current) use of anticoagulants
CPT/HCPCS: 36415; 36416; 36592; 36600; 71045; 71250; 74176; 76770; 80048; 80051; 80053; 81001; 82009; 82140; 82330; 82436; 82533; 82805; 82962; 83605; 83690; 83735; 83880; 84100; 84133; 84145; 84300; 84443; 84484; 85025; 85610; 87040; 87086; 87106; 87107; 87205; 87426; 92610; 93005; 96372; 97110; 97162; 97530; J0282; J0696; J1450; J1644; J1815 ×2; J1940; J2543; J3480; J7030; J7040; J7050; J7799; P9041; P9047

== ENCOUNTER → 2021-07-11 16:03 | Outpatient (BNVA) | payer MEDICARE, SELFPAY | PROVIDERS: PCP Family Medicine; Visit Provider Internal Medicine Cardiovascular Disease | DX: I25.5 Ischemic cardiomyopathy (principal); R06.02 Shortness of breath; I50.33 Acute on chronic diastolic (congestive) heart failure; I49.9 Cardiac arrhythmia, unspecified; Z95.0 Presence of cardiac pacemaker; I72.9 Aneurysm of unspecified site | CPT/HCPCS: 80048; 83880; 85610 ==

== ENCOUNTER 2021-07-18 16:07 | Inpatient (IN) | payer MEDICARE, SELFPAY ==
[2021-07-18] VITALS (12 sets, daily range): BP systolic 100–115; BP diastolic 53–82; PULSE 79–101; RESP 17–31; O2SAT 95–100; BMI 19.2
--- NOTE | 2021-07-18 16:23 | ECG_ITS ---
[facility] Test Date: 2021-07-18 Pat Name: Anish Harris Department: Room: Gender: Male Life Advisor: : 1945 Requested By: Gregory Layton Order Number: [id number] Reading MD: LEO NASH Measurements Intervals [place] Rate: 87 P: -24 IA: 184 QRS: -19 QRSD: 104 T: 123 QT: 382 QTc: 462 Interpretive Statements SINUS RHYTHM LOW QRS VOLTAGE IN PRECORDIAL LEADS [QRS DEFLECTION < 1.0 mV IN CHEST LEADS] INFERIOR MYOCARDIAL INFARCTION , OF INDETERMINATE AGE [40+ ms Q WAVE AND/OR ST/T ABNORMALITY IN II/aVF] Compared to ECG 06/29/2021 11:26:10 Low QRS voltage now present Sinus tachycardia no longer present Ventricular premature complex(es) no longer present Myocardial infarct finding still present Electronically Signed On 07-18-2021 21:07:21 CDT by LEO NASH [email or web address]
--- NOTE | 2021-07-18 16:23 | XRR_ITS ---
PROCEDURE INFORMATION: Exam: XR Chest Exam date and time: 07/18/2021 4:23 PM Age: 75 years old Clinical indication: Cough and shortness of breath; Prior surgery; Surgery type: Pacer; Additional info: Dyspnea/cough TECHNIQUE: Imaging protocol: XR of the chest. Views: 1 view. COMPARISON: CR (CHEST, ) 07/01/2021 3:32 PM FINDINGS: Tubes, catheters and devices: Left chest ICD. ICD position is unchanged from the comparison. Lungs: Moderate emphysema. No focal airspace consolidation. Minor streaky left lung base opacities are reduced from prior. Pleural spaces: Unremarkable. No pleural effusion. No pneumothorax. Heart/Mediastinum: Unremarkable. No cardiomegaly. Bones/joints: Unremarkable. XR/XR chest 1V portable [id number] IMPRESSION: No focal acute pulmonary disease identified.
[2021-07-18] MEDS: sodium chloride 0.9% 1,000 ML 999 ML IV ×2 (16:43→17:12)
[2021-07-18 16:52] LABS: Basophils % 0.3 %; Hemoglobin 13.8 g/dL (11.7-16.6); Lymphocytes # 1.5 10^3/uL (0.8-4.8); Lymphocytes % 13.2 %; Mean Corpuscular HGB Conc 32.1 g/dL (30.0-36.0); Mean Corpuscular Hemoglobin 27.8 pg (28.0-34.0); Mean Corpuscular Volume 86.7 fl (80-94); Mean Platelet Volume 9.4 fL (7.4-10.4); Monocytes # 0.7 10^3/uL (0.2-0.9); Monocytes % 6.1 %; Neutrophils # 8.88 10^3/uL (1.8-7.7); Neutrophils % 77.8 %; Nucleated Red Blood Cells % 0 %; Platelet Count 340 10^3/cmm (130-400); Red Blood Count 4.96 10^6/uL (4.1-5.3); White Blood Count 11.4 10^3/uL (4.0-10.0)
--- NOTE | 2021-07-18 16:57 | CTR_ITS ---
PROCEDURE INFORMATION: Exam: CT Abdomen And Pelvis Without Contrast Exam date and time: 07/18/2021 4:57 PM Age: 75 years old Clinical indication: Abdominal pain; Generalized; Prior surgery; Surgery type: Left hip, pacer; Additional info: Abd pain TECHNIQUE: Imaging protocol: Computed tomography of the abdomen and pelvis without contrast. Radiation optimization: All CT scans at this facility use at least one of these dose optimization techniques: automated exposure control; mA and/or kV adjustment per patient size (includes targeted exams where dose is matched to clinical indication); or iterative reconstruction. COMPARISON: CT chest abd pel wo con 06/26/2021 2:42 PM RADIATION DOSE METRICS: Total DLP (mGy-cm): 1261.79 FINDINGS: Heart: ICD lead in the right cardiac chambers. Wall calcifications of the left atrium. Liver: Normal. No mass. Gallbladder and bile ducts: Cholelithiasis. No inflammatory gallbladder wall thickening. Negative for biliary system dilation. Pancreas: Fatty replacement changes of pancreas without focal lesion. Spleen: Normal. No splenomegaly. Adrenal glands: Normal. No mass. Kidneys and ureters: There is mild severity bilateral hydroureteronephrosis. Small fossae of air are present in the right-sided intrarenal collecting system. Parenchymal calcifications on the medial side of the left kidney interpolar aspect. The distal ureteral segments are poorly characterized; there is streak artifact from the left hip arthroplasty. Stomach and bowel: Moderate fecal volume. Negative for bowel obstruction. No focal bowel mass identified. No focal bowel wall inflammation. Appendix: Normal appendix. Intraperitoneal space: Unremarkable. No free air. No significant fluid collection. Vasculature: Scattered atherosclerosis. Negative for aneurysm. Lymph nodes: Unremarkable. No enlarged lymph nodes. Urinary bladder: Bladder is decompressed. Cabral catheter within the bladder. Air within the bladder. Reproductive: Unremarkable as visualized. Bones/joints: Left hip arthroplasty with unremarkable alignment. Bones are demineralized. No acute fractures are identified. There is mild anterior vertebral body wedging of T11 which is age indeterminate. Lumbar spinal alignment is anatomic. Soft tissues: Large fat containing left inguinal hernia. Atrophic paraspinal muscles. Other findings: Patchy ground-glass changes in the posterior lower lobes greater on left than right. New finding from prior. CT/CT abdomen pelvis wo con [id number] IMPRESSION: 1. Bilateral collecting systems are mildly dilated, however similar to the prior imaging. No convincing evidence of distal obstructing lesion. 2. Several small foci of air within the right renal calyces. Recommend correlation for recent instrumentation. Otherwise, infection such as emphysematous pyelitis cannot be excluded. 3. Patchy lower lobe ground-glass changes are new from prior; pneumonia not excluded. Radiation Dose CTDIVOL = (mGy): DLP = 1261.79 (mGy-cm)
--- NOTE | 2021-07-18 17:01 | W.ED.GENADLT ---
HPI - General Adult General: Chief complaint: General Medical Stated complaint: HYPOTENSION Time Seen by Provider: 07/18/21 16:09 History of Present Illness: HPI narrative: 75 male presents emergency room via EMS. His home health care nurse had sent him and he was hypotensive he is lethargic and increasingly weak. He appears very cachectic and reports in the last month he is lost a large amount of weight in the last few months he reports 40-50+ pound weight loss. Patient states previously was able to get up and ambulate now he cannot ambulate he has decubitus ulcers on his left hip and over his sacrum. Onset (ago): unknown Relieving factors: none Exacerbating factors: none Associated symptoms: Reports decreased appetite, malaise, nausea and weakness; Deny chest pain, confusion, cough, diaphoresis, dyspnea, fevers/chills, headache(s), rash, palpitations, seizures, short of breath, syncope or vomiting Treatments prior to arrival: none Review of Systems Const: Reports: malaise; Denies: diaphoresis ENMT: Denies: throat pain, ear or mastoid pain, nasal discharge or nasal congestion Card: Denies: chest pain, palpitations or syncope Resp: Denies: dyspnea GI: Reports: nausea; Denies: vomiting : Denies: flank pain, dysuria, urinary frequency or urinary urgency Skin/Breast: Denies: rash Neuro: Denies: headache(s) or confusion [facility] ED PFSH: Medical History (Updated 07/24/21 @ 06:19 by Gregory Goins DO) Benign essential HTN CAD (coronary artery disease) Diabetes mellitus, type II Cabral catheter in place Hyperlipidemia Ischemic cardiomyopathy Left ventricular aneurysm Pacemaker 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 Pyocystis Subcapital fracture of left hip Urethral stricture Urethral stricture UTI (urinary tract infection) Ventricular arrhythmia Ventricular arrhythmia EKG from today revealed sinus rhythm with first-degree AV block diffuse nonspecific T wave changes Surgical History H/O cystoscopy History of implantable cardiac defibrillator (ICD) History of implantable cardioverter-defibrillator (ICD) insertion History of permanent cardiac pacemaker placement History of total left hip replacement Family History Brother Diabetes Heart disease CAD (coronary artery disease) Hypertension Lung disease Father Stroke Sister Lung disease Dementia Cancer Mother Lung disease Denies family history of Clotting disorder Suicide Anesthesia complication Bleeding disorder Social History Smoking and tobacco status: never smoked Alcohol intake: never Physical Exam Const: COMMON NORMALS: no acute distress GENERAL APPEARANCE: lethargic NUTRITIONAL APPEARANCE: cachectic ORIENTATION/CONSCIOUSNESS: Yes awake, Yes oriented to person, Yes oriented to place, Yes oriented to time and Yes lethargic HENMT: COMMON NORMALS: normocephalic, atraumatic and hearing grossly normal bilaterally HEAD & SCALP: normocephalic and atraumatic Neck/C-Spine: COMMON NORMALS: no JVD Resp: COMMON NORMALS: normal respiratory effort, No retractions, No use of accessory muscles and clear to auscultation bilaterally AUSCULTATION: clear to auscultation bilaterally Cardio: COMMON NORMALS: no JVD, regular rate, regular rhythm and No murmurs present (Cardio) RATE: regular rate RHYTHM: regular rhythm GI: COMMON NORMALS: Soft to palpation and No hepatosplenomegaly present AUSCULTATION: Yes normoactive bowel sounds PALPATION: Yes Soft to palpation, No Tenderness to palpation present (GI), No Guarding due to palpation present (GI) and Yes No hepatosplenomegaly present Extremity: COMMON NORMALS: normal to inspection, capillary refill normal, no clubbing, cyanosis or edema, no calf tenderness and no pedal edema Neuro: SENSORIUM/ORIENTATION: Yes oriented to person, Yes oriented to place, Yes oriented to time and Yes lethargic Skin: NARRATIVE SKIN EXAM: Early skin breakdown over the trochanter on the left hip. There is a large irregularly shaped eschar about 4 to 6 inches across overlying the sacrum with some localized erythema there is some bright red blood from the lesion but no active purulent fluid or drainage. Course Vital Signs: Vital signs: Vital Signs Temperature 98.0 F 07/24/21 04:00 Pulse Rate 69 07/24/21 04:00 Respiratory Rate 16 07/24/21 04:00 Blood Pressure 113/65 07/24/21 04:00 Pulse Oximetry 99 07/24/21 04:00 MDM - General Adult MDM Narrative: Medical decision making narrative: Patient with significant sepsis coagulopathy and acute kidney failure as well as decubitus ulcer. He also has a cystitis which I suspect may be the source of his sepsis. We will go ahead admit the patient discussed the hospitalist orders are written. Lab Data: Labs: Lab Results 07/18/21 07/18/21 07/18/21 Range/Units 16:37 16:37 16:37 WBC 11.4 H (4.0-10.0) 10^3/ uL RBC 4.96 (4.1-5.3) 10^6/u L Hgb 13.8 (11.7-16.6) g/dL Hct 43.0 (42.0-52.0) % MCV 86.7 (80-94) fl MCH 27.8 L (28.0-34.0) pg MCHC 32.1 (30.0-36.0) g/dL RDW 16.0 H (12.1-15.1) % Plt Count 340 (130-400) 10^3/c mm MPV 9.4 (7.4-10.4) fL Neut % (Auto) 77.8 % Lymph % (Auto) 13.2 % Mariposa % (Auto) 6.1 % Eos % (Auto) 0.0 % Baso % (Auto) 0.3 % Neut # (Auto) 8.88 H (1.8-7.7) 10^3/u L Lymph # (Auto) 1.5 (0.8-4.8) 10^3/u L [place] # (Auto) 0.7 (0.2-0.9) 10^3/u L Eos # (Auto) 0.0 (0.0-0.8) 10^3/u L Baso # (Auto) 0.0 (0.0-0.1) 10^3/u L Nucleated RBC % (a uto) 0 % Nucleated RBCs # 0.0 /100WBC PT (12.1-14.9) SECO NDS INR Sodium Cancelled Potassium Cancelled Chloride Cancelled Carbon Dioxide Cancelled Anion Gap Cancelled BUN Cancelled Creatinine Cancelled GFR Calculation Cancelled Glucose Cancelled Calculated Osmolal ity Cancelled Calcium Cancelled Total Bilirubin Cancelled AST Cancelled ALT Cancelled Alkaline Phosphata se Cancelled Creatine Kinase (39-308) U/L Troponin T Baselin e 62 H (0-15) ng/L Total Protein Cancelled Albumin Cancelled Globulin Cancelled Urine Color (Yellow) Urine Appearance (CLEAR) Urine pH (5-7) Ur Specific Gravit y (1.005-1.030) Urine Protein (Negative) Urine Glucose (UA) (Normal) Urine Ketones (Negative) Urine Blood (Negative) Urine Nitrate (Negative) Urine Bilirubin (Negative) Urine Urobilinogen (Negative) mg/dL Ur Leukocyte Sarah ase (Negative) Urine RBC (0-2) /hpf Urine WBC (0-5) /hpf Ur Squamous Epith Cells (0-5) /hpf Amorphous Sediment Urine Bacteria (NONE) /hpf Urine Mucus /hpf 07/18/21 07/18/21 07/18/21 Range/Units 16:37 16:37 17:10 WBC (4.0-10.0) 10^3/ uL RBC (4.1-5.3) 10^6/u L Hgb (11.7-16.6) g/dL Hct (42.0-52.0) % MCV (80-94) fl MCH (28.0-34.0) pg MCHC (30.0-36.0) g/dL RDW (12.1-15.1) % Plt Count (130-400) 10^3/c mm MPV (7.4-10.4) fL Neut % (Auto) % Lymph % (Auto) % [place] % (Auto) % Eos % (Auto) % Baso % (Auto) % Neut # (Auto) (1.8-7.7) 10^3/u L Lymph # (Auto) (0.8-4.8) 10^3/u L [place] # (Auto) (0.2-0.9) 10^3/u L Eos # (Auto) (0.0-0.8) 10^3/u L Baso # (Auto) (0.0-0.1) 10^3/u L Nucleated RBC % (a uto) % Nucleated RBCs # /100WBC PT > 120.00 H (12.1-14.9) SECO NDS INR TNP Sodium Potassium Chloride Carbon Dioxide Anion Gap BUN Creatinine GFR Calculation Glucose Calculated Osmolal ity Calcium Total Bilirubin AST ALT Alkaline Phosphata se Creatine Kinase 18 L (39-308) U/L Troponin T Baselin e (0-15) ng/L Total Protein Albumin Globulin Urine Color Brown (Yellow) Urine Appearance Cloudy (CLEAR) Urine pH 5 (5-7) Ur Specific Gravit y 1.025 (1.005-1.030) Urine Protein 1+ H (Negative) Urine Glucose (UA) Trace H (Normal) Urine Ketones 1+ H (Negative) Urine Blood 3+ H (Negative) Urine Nitrate Negative (Negative) Urine Bilirubin Neg (Negative) Urine Urobilinogen Neg (Negative) mg/dL Ur Leukocyte Sarah ase 2+ H (Negative) Urine RBC Too numerous to c nt H (0-2) /hpf Urine WBC Too numerous to c nt H (0-5) /hpf Ur Squamous Epith Cells 5-10 H (0-5) /hpf Amorphous Sediment Not Reportable Urine Bacteria Trace (NONE) /hpf Urine Mucus 4+ /hpf Discharge Plan Discharge Patient Disposition: Admitted As Inpatient Admit Provider: Medina Ye Clinical Impression: Sepsis, Coagulopathy, Weakness, Decubitus ulcer, Cystitis, Acute renal failure Condition: Stable Coding Level of Care Code ED Fishing Game Warden for Chg Fwd Exam Detailed
[2021-07-18 17:11] LABS: Troponin(5th) Baseline 62 ng/L (0-15)
[2021-07-18] MEDS: ondansetron 2 mg/ML SDV 2 mL 4 MG IVP ×2 (17:11→19:41)
--- NOTE | 2021-07-18 17:18 | PC.PHAR ---
PTS JUNIOR VERIFIED MEDICATIONS-[facility] SENT OVER MED LIST ALSO-PTS STATES CHANGED WARFARIN BACK TO 3MG DAILY LAST WEEK-HOME HEALTH LIST HAS 4MG DAILY AND RX WAS WRITTEN ON 07/05/21 -PTS STATES SHE HAS BEEN GIVING THE PT 3MG DAILY@14:00-PTS STATES THE PT SHOULD FINISH THE FLUCONAZOLE ON 07/20/21 RX WAS FILLED ON 07/05/21 14D/S FOR 100MG DAILY-PTS STATES THE PT HAS METOPROLOL TARTRATE 25MG PO BID PRN HOLD IF SBP<105 OR HEART RATE IS <50 PTS STATES THE PT HASNT HAD TO TAKE THIS MEDICATION-PTS STATES SHE HAD GOT CONFUSED AND HAD ONLY BEEN GIVING FLOMAX 0.4MG HS RX WAS FILLED FOR 0.4MG BID-NOTES ARE MADE IN THE PHARMACY COMMENTS-PTS HOMEHEALTH MED LIST [facility] HAS THE PT TAKES ASPIRIN 81MG HS 04/19/2020 PTS STATES THE PT DOES NOT TAKE ASPIRIN
[2021-07-18 17:21] LABS: Prothrombin Time > 120.00 SECONDS (12.1-14.9)
[2021-07-18 17:41] LABS: Urine Color Brown (Yellow)
[2021-07-18 17:42] LABS: Add Urine Culture? Yes; Add Urine Microscopic? YES; Bacteria Urine TRACE /hpf; Bilirubin Urine Neg (Negative); Blood Urine 3+ (Negative); Glucose Urine UA Trace (Normal); Ketones Urine 1+ (Negative); Leukocyte Esterase Urine 2+ (Negative); Mucus Urine 4+ /hpf; Nitrate Urine Negative (Negative); Protein Urine 1+ (Negative); RBC Urine TOO NUMEROUS TO CNT /hpf (0-2); Specific Gravity, Urine 1.025 (1.005-1.030); Urine Appearance Cloudy (CLEAR); Urobilinogen Urine Neg (Negative); WBC Urine TOO NUMEROUS TO CNT /hpf (0-5); pH Urine 5 (5-7)
[2021-07-18 17:46] LABS: Creatine Phosphokinase 18 U/L (39-308)
--- NOTE | 2021-07-18 18:20 | PC.NURSE ---
irrigated dominguez catheter with 500 ml of sterile water with 500 ml returned or red tinged cloudy output into dominguez bag. pt tolerated well.
--- NOTE | 2021-07-18 18:23 | ECG_ITS ---
[facility] Test Date: 2021-07-18 Pat Name: Anish Harris Department: Room: Gender: Male [employer] Supervisor: : 1945 Requested By: Gregory Layton Order Number: [id number] Reading MD: LEO NASH Measurements Intervals [place] Rate: 79 P: MA: QRS: 26 QRSD: 97 T: -56 QT: 398 QTc: 457 Interpretive Statements SINUS RHYTHM LOW QRS VOLTAGE [QRS DEFLECTION < 0.5/1.0 mV IN LIMB/CHEST LEADS] ABNORMAL QRS-T ANGLE [QRS-T AXIS DIFFERENCE > 60] Compared to ECG 07/18/2021 16:39:28 No signiifcant change Electronically Signed On 07-18-2021 21:09:32 CDT by LEO NASH [email or web address] Surgicalmonroe regional [email or web address] medical [email or web address]/store/[id number]
--- NOTE | 2021-07-18 18:35 | PC.NURSE ---
pt cmp but troponin and ck resulted no calls from lab notifying of blood being hemolyzed. Notified Dr. Goins; lab currently redrawing cmp.
[2021-07-18 19:21] LABS: Troponin 5 2HR 48.92 ng/L (0-15)
[2021-07-18 19:23] LABS: Alanine Aminotransferase 13 U/L (0-41); Albumin Level 2.4 g/dL (3.5-5.2); Alkaline Phosphatase 100 IU/L (40-130); Aspartate Amino Transferase 29 U/L (0-40); Calcium 7.4 mg/dL (8.5-10.5); Carbon Dioxide 14 mmol/L (22-29); Chloride 95 mmol/L (98-107); Globulin 3.8 g/dL (1.3-4.6); Glucose 287 mg/dL (65-115); Sodium 129 mmol/L (136-145); Total Bilirubin 0.3 mg/dL (0.15-1.2); Total Protein 6.2 g/dL (6.6-8.7)
[2021-07-18 19:25] LABS: Anion Gap 26.5 (5-19); Osmolality Calculated 320 mOsm/kg (285-295)
[2021-07-18 19:26] LABS: Blood Urea Nitrogen 129 mg/dL (8-23); Potassium 6.5 mmol/L (3.5-5.1)
[2021-07-18] MEDS: morphine 4 mg/mL SDV 1 mL 2 MG IVP (19:41)
[2021-07-18] MEDS: sodium chloride 0.9% 1,000 ML 100 ML IV (19:41)
[2021-07-18] MEDS: calcium gluconate 0.1 gm/mL 10% SDV 10mL 1 GM IVP (20:43)
[2021-07-18] MEDS: insulin regular-human 100 units/1 mL 10 UNIT IVP (20:55)
[2021-07-18] MEDS: dextrose 50% syringe 50 mL IVP (21:00)
[2021-07-18 21:31] LABS: ABG PCO2 13.3 mmHg (35-45); ABG PH Result 7.45 (7.35-7.45); Base Excess ABG -11.7 mmol/L (-2.0-2.0); Blood Gas Allen Test Pos; Blood Gas Sample Site Radial, left; Blood Gas Sample Type Arterial; HCO3 ABG 9.1 mmol/L (22-26); Oxygen Device ROOM AIR
--- NOTE | 2021-07-18 22:23 | ECG_ITS ---
[facility] Test Date: 2021-07-19 Pat Name: Anish Harris Department: Room: [id number] Gender: Male French Binding Folder: sheree : 1945 Requested By: Gregory Layton Order Number: [id number] Reading MD: LEO NASH Measurements Intervals [place] Rate: 84 P: 35 VT: 203 QRS: -22 QRSD: 93 T: 251 QT: 372 QTc: 441 Interpretive Statements SINUS RHYTHM WITH OCCASIONAL VENTRICULAR PREMATURE COMPLEXES INFERIOR MYOCARDIAL INFARCTION [40+ ms Q WAVE AND/OR ST/T ABNORMALITY IN II/aVF], OF INDETERMINATE AGE Compared to ECG 07/18/2021 18:34:07 Ventricular premature complex(es) now present Myocardial infarct finding now present Electronically Signed On 07-19-2021 22:22:39 CDT by LEO NASH [id number]
--- NOTE | 2021-07-18 22:24 | PM.HP ---
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 Hospital course complicated by septic shock, treated wiwth Zosyn and Fluconazole, discharged with levaquin and fluconazole. Dominguez catheter was retained at discharge. Also found was intracavitary cardiac thrombus for which he was started on Coumadin. SNF discharge was recommended, however patient elected to return home. On 07/11, INR found to be 5.8. Patient is uncertain if he stopped taking Coumadin at this point as his manages most of his medications. Returns today after being found by home health nurse to be lethargic and weak at home. Patient also states that this morning his catheter was flushed at home and since then he has had hematuria. Hematuria persists even at presentation right now. W/up today notable for INDERJIT with cr 6.5, hyperkalemia with K 6.5, HAGMA, + UA. He has received insulin/dextrose, Ca gluconate. CT abd/pelvis shows decompressed bladder with Dominguez in place, mildly dilated collecting systems similar to last imaging on 06/26, small foci of air within right renal calyces, patchy GGOS in chest. Review of Systems General: Reports: 10 or more systems reviewed and unremarkable except in HPI and below Const: Denies: fever(s), chills or body aches Eyes: Denies: change in vision, blurry vision or photophobia ENMT: Reports: hoarseness; Denies: throat pain, enlarged tonsils, odynophagia or nasal congestion Card: Denies: chest pain, palpitations, irregular heart rhythm, edema, swelling of feet/ankles, lightheadedness, pre-syncope, dyspnea on exertion or orthopnea Resp: Denies: dyspnea, productive cough, non-productive cough, wheezing, stridor, pain on inspiration, change in phlegm color, hemoptysis or chest congestion GI: Denies: abdominal pain, nausea, vomiting, hematemesis, coffee ground emesis, dysphagia, heartburn, diarrhea, constipation, GI cramping, change in stool character, hematochezia or melena : Denies: flank pain, dysuria, urinary frequency, urinary urgency, urinary hesitancy or hematuria Musc: Denies: neck pain, back pain, extremity pain, joint swelling, joint warmth or deformity Neuro: Denies: headache(s), numbness in extremities, weakness in extremities, sensory changes, difficulty walking, frequent falls, dizziness, vertigo, behavioral changes, Slurred speech present or seizure-like activity Psych: Denies: anxiety, depression, suicidal ideation or homicidal ideation Endo: Denies: polyuria, polydipsia, tired all the time, cold intolerance or hot flashes Fermin/Lymph: Denies: easy bruising or easy bleeding Medications/Allergies Home Medications Medication Instructions Recorded Confirmed Last Taken Type levothyroxine 100 mcg tablet 100 mcg PO .DAILY EXCEPT ON SUN 04/19/20 07/18/21 07/17/21 History magnesium 2 tab PO DAILY 04/19/20 07/18/21 07/05/21 History rosuvastatin 20 mg tablet 20 mg PO BEDTIME 04/19/20 07/18/21 07/17/21 History tamsulosin 0.4 mg capsule 0.4 mg PO BEDTIME cap 04/12/21 07/18/21 07/17/21 History blood-glucose meter [Accu-Chek #1 ea 07/05/21 07/18/21 Unknown Rx Ruth Plus Meter] lancets-blood glucose strips #200 ea 07/05/21 07/18/21 Unknown Rx metoprolol tartrate 50 mg tablet 25 mg PO BID PRN tab 07/11/21 07/18/21 Unknown History fluconazole 100 mg PO QA 07/18/21 07/18/21 07/18/21 08:00 History insulin glargine [Lantus Solostar 5 unit SUBCUT [facility] 1928–1983 07/18/21 07/18/21 07/18/21 08:00 History U-100 Insulin] multivit with min-folic acid 2 tab PO QAM 07/18/21 07/18/21 Unknown History [Adult Multivitamin Gummies] warfarin 3 mg PO DAILY@14 07/18/21 07/18/21 07/18/21 History Allergies Allergy/AdvReac Type Severity Reaction Status Date / Time No Known Allergies Allergy Verified 07/11/21 09:47 PFSH Acute PFSH: Medical History (Updated 07/19/21 @ 01:20 by Unique Artis MD) Benign essential HTN CAD (coronary artery disease) Diabetes mellitus, type II Dominguez catheter in place Hyperlipidemia Ischemic cardiomyopathy Left ventricular aneurysm Pacemaker 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 Pyocystis Subcapital fracture of left hip Urethral stricture UTI (urinary tract infection) Ventricular arrhythmia Ventricular arrhythmia EKG from today revealed sinus rhythm with first-degree AV block diffuse nonspecific T wave changes Surgical History H/O cystoscopy History of implantable cardiac defibrillator (ICD) History of implantable cardioverter-defibrillator (ICD) insertion History of permanent cardiac pacemaker placement History of total left hip replacement Family History Brother Diabetes Heart disease CAD (coronary artery disease) Hypertension Lung disease Father Stroke Sister Lung disease Dementia Cancer Mother Lung disease Denies family history of Clotting disorder Suicide Anesthesia complication Bleeding disorder Social History Smoking and tobacco status: never smoked Alcohol intake: never Vitals/I&O/Wt Last Vital Signs Pulse 95 07/18/21 21:13 Resp 22 H 07/18/21 21:13 BP 104/53 07/18/21 21:13 Pulse Ox 97 07/18/21 21:13 07/18/21 07/18/21 07/18/21 06:59 14:59 22:59 Intake Total 2100 / 2100 Output Total 700 / 700 Balance 1400 / 1400 Weight last 48 hrs Weight 64.41 kg Physical Exam Narrative: EXAM NARRATIVE: General: Frail appearing man in no acute distress HEENT: PERRLA, pupils bilaterally equal and reactive, pallors not present Chest: Normal vesicular breath sounds, no added sounds CVS: S1-S2 regular, no murmurs, no tachycardia, no gallops, no rubs Abdomen: Soft, nontender, no organomegaly, bowel sounds + Neuro: no facial deformity, no motor deficits grossly Extremities: sacral pressure ulcer with overlying eschar Data : 07/18/21 16:37 07/18/21 18:44 Micro: Microbiology 07/18/21 17:10 Blood Culture - Preliminary Blood SPECIMEN COLLECTED 07/18/21 17:05 Blood Culture - Preliminary Blood SPECIMEN COLLECTED A&P Assessment and plan (1) Acute renal failure: Cr at 6.4 today after having trended down to 1.7 at last discharge. Associated hyperkalemia and HAGMA. Received ca gluconate and insulin/dextrose in ER, stat CMP now ordered for follow up CT abdomen today does not show signs of gross obstruction, however given hematuria possibility of Dominguez blockage with clots cannot be completely excluded. dominguez flushed in ER, currently draining dark red urine in bag. Monitor I/O Urology consult in am as may need 3 way Dominguez and possible CBI, catheter needed to be inserted cytsoscopically on last admission Status: Acute Qualifiers: Acute renal failure type: unspecified Qualified Code(s): N17.9 - Acute kidney failure, unspecified (2) Supratherapeutic INR: Patient unsure if he stopped warfarin after last INR of 5.8 on 07/11 Unable to reach at this time to confirm Status: Acute (3) Hematuria: Dominguez flushed in ER, currently draining dark red urine in bag Status: Acute Qualifiers: Hematuria type: gross Qualified Code(s): R31.0 - Gross hematuria (4) UTI (urinary tract infection): + UA, however from indwelling catheter, recent complicated pyocystitis Empiric Zosyn and Caspofungin for now while awaiting urine ecx results Status: Acute Qualifiers: Urinary tract infection type: site unspecified Hematuria presence: with hematuria Qualified Code(s): N39.0 - Urinary tract infection, site not specified; R31.9 - Hematuria, unspecified Additional A&P Information DVT ppx: Hold off as INR supratherapuetic DNR/DNI , okay for ICU admission and medical management Attestations Medical Necessity Statement*: >2midnight admission will be warranted for above defined care Coding Level of Care Code Acute Financial Coach for [facility] Fw Diagnoses Acute renal failure N17.9 Acute renal failure type: unspecified Supratherapeutic INR R79.1 Hematuria R31.0 Hematuria type: gross UTI (urinary tract infection) N39.0; R31.9 Urinary tract infection type: site unspecified Hematuria presence: with hematuria
[2021-07-19] VITALS (87 sets, daily range): BP systolic 82–110; BP diastolic 40–65; PULSE 73–102; RESP 13–29; TEMP 35.3–36.2; O2SAT 73–100
[2021-07-19] MEDS: piperacillin-tazobactam 3.375 GM in sodium chloride 0.9% (plus) 50 ML IV ×2 (01:52→15:47)
[2021-07-19] MEDS: famotidine 20 mg/2 mL INJ IVP ×3 (01:53→22:10)
[2021-07-19 05:05] LABS: Basophils % 0.4 %; Eosinophils % 0.4 %; Hematocrit 30.8 % (42.0-52.0); Hemoglobin 10.9 g/dL (11.7-16.6); Lymphocytes # 1.3 10^3/uL (0.8-4.8); Lymphocytes % 12.2 %; Mean Corpuscular HGB Conc 35.4 g/dL (30.0-36.0); Mean Corpuscular Hemoglobin 28.9 pg (28.0-34.0); Mean Corpuscular Volume 81.7 fl (80-94); Mean Platelet Volume 9.2 fL (7.4-10.4); Monocytes # 0.6 10^3/uL (0.2-0.9); Monocytes % 5.7 %; Nucleated Red Blood Cells % 0 %; Platelet Count 241 10^3/cmm (130-400); Red Blood Count 3.77 10^6/uL (4.1-5.3); Red Cell Distribution Width 15.8 % (12.1-15.1); White Blood Count 10.8 10^3/uL (4.0-10.0)
[2021-07-19] MEDS: sodium chloride 0.9% 1,000 ML 999 ML IV (05:06)
[2021-07-19 05:28] LABS: Alanine Aminotransferase 12 U/L (0-41); Albumin Level 2.3 g/dL (3.5-5.2); Alkaline Phosphatase 104 IU/L (40-130); Aspartate Amino Transferase 20 U/L (0-40); Calcium 7.7 mg/dL (8.5-10.5); Carbon Dioxide 10 mmol/L (22-29); Chloride 103 mmol/L (98-107); Globulin 3.7 g/dL (1.3-4.6); Glucose 194 mg/dL (65-115); Osmolality Calculated 314 mOsm/kg (285-295); Sodium 132 mmol/L (136-145); Total Bilirubin 0.3 mg/dL (0.15-1.2)
[2021-07-19 05:29] LABS: Lactic Sepsis W/Reflex 1.2 mmol/L (0.5-2.2)
[2021-07-19 05:31] LABS: Anion Gap 23.9 (5-19); Potassium 4.9 mmol/L (3.5-5.1); Prothrombin Time > 120.00 SECONDS (12.1-14.9)
[2021-07-19 05:42] LABS: Blood Urea Nitrogen 111 mg/dL (8-23)
[2021-07-19] MEDS: sodium chloride 0.9% 1,000 ML 100 ML IV ×2 (05:45→17:31)
[2021-07-19 06:30] LABS: INR > 20.00 (0.8-1.2); Partial Thromboplastin Time 190.6 SECONDS (23.9-36.7)
[2021-07-19] MEDS: lidocaine 2% Urojet 20 mL TOPICAL (08:18)
[2021-07-19] MEDS: calcium gluconate 0.1 gm/mL 10% SDV 10mL 1 GM IVP (08:29)
[2021-07-19] MEDS: sodium bicarbonate 150 MEQ in dextrose 5% 1,000 ML 100 MEQ IV ×2 (08:30→22:10)
[2021-07-19 08:37] LABS: Glucose Point of Care 150 mg/dL (70-110)
--- NOTE | 2021-07-19 09:00 | PC.NURSE ---
Dr. Lew in room this AM and replaced dominguez with 18F dominguez and new bag. Bright red blood was returned into bag.
[2021-07-19 10:16] LABS: Troponin 5 6HR 46.53 ng/L (0-15)
[2021-07-19] MEDS: phytonadione (ADULT) 10 mg/mL Ampule 1 mL 5 MG PO (11:07)
[2021-07-19 11:14] LABS: Glucose Point of Care 173 mg/dL (70-110)
--- NOTE | 2021-07-19 14:45 | PM.PN ---
Subjective Subjective: Interval history: Vitamin K and 1 FFP today Persistent hematuria with blood clots, manual irrigation by the ICU nurse, Patient is hemodynamically stable with plan to transfer him out of ICU Vitals/I&O/Wt Last Vital Signs Temp 95.9 F L 07/19/21 11:00 Pulse 78 07/19/21 13:00 Resp 16 07/19/21 13:00 BP 85/47 07/19/21 13:00 Pulse Ox 100 07/19/21 11:25 07/18/21 07/19/21 07/19/21 22:59 06:59 14:59 Intake Total 2100 / 2100 2050 / 4150 Output Total 700 / 700 650 / 1350 100 / 100 Balance 1400 / 1400 1400 / 2800 -100 / -100 Weight last 48 hrs Weight 64.41 kg Physical Exam Narrative: EXAM NARRATIVE: Patient recognized me as I entered the room because I discharged him last time He was able to tell me that at home he was not able to do any kind of activities and he did not get his INR checked S1, S2 variable Murmur appreciated Clinically looks dehydrated Unstageable necrotic ulcer around sacral area Patient is hypothermic Bilateral breath sounds with rhonchi saturating well on room air Abdomen nontender Chai hematuria in the bag with clots Data : 07/19/21 04:50 07/19/21 04:50 Micro: Microbiology 07/18/21 17:10 Blood Culture - Preliminary Blood SPECIMEN COLLECTED 07/18/21 17:05 Blood Culture - Preliminary Blood SPECIMEN COLLECTED A&P Assessment and plan (1) Hematuria: Status: Acute Qualifiers: Hematuria type: gross Qualified Code(s): R31.0 - Gross hematuria (2) Supratherapeutic INR: Status: Acute (3) Acute renal failure: Status: Acute Qualifiers: Acute renal failure type: unspecified Qualified Code(s): N17.9 - Acute kidney failure, unspecified (4) UTI (urinary tract infection): Status: Acute Qualifiers: Urinary tract infection type: site unspecified Hematuria presence: with hematuria Qualified Code(s): N39.0 - Urinary tract infection, site not specified; R31.9 - Hematuria, unspecified (5) Sepsis: Status: Acute (6) Coagulopathy: Status: Acute (7) Weakness: Status: Acute (8) Decubitus ulcer: Status: Acute (9) Diabetes mellitus, type II: Status: Acute Qualifiers: Diabetes mellitus skilled nursing insulin use: without skilled nursing use Diabetes mellitus complication status: with hyperglycemia Qualified Code(s): E11.65 - Type 2 diabetes mellitus with hyperglycemia (10) Pacemaker: Status: Acute (11) Ischemic cardiomyopathy: Status: Acute (12) Aneurysm: Status: Acute Additional A&P Information INDERJIT with chai hematuria Manual irrigation for now, Cabral catheter changed by Dr. Lew this morning as per nursing report Hemoglobin 10.9 Creatinine 5.3 Hyperkalemia improved Metabolic acidosis secondary to uremia, would use bicarb for 24 hours only potassium 4.9, calcium 7.7, corrected calcium will be normal Albumin 2.3 Dr. Lew consulted by the overnight MD He did not receive contrast CT scan was done without contrast yesterday no signs of obstructive lesion, he does carry diagnosis of urethral stricture Supratherapeutic INR with acute blood loss anemia Patient was discharged on Coumadin however he did not go for INR check as directed This was chosen secondary to left ventricular aneurysm with thrombus He would not be considered a good candidate for anticoagulation from now onwards Given FFP and vitamin K today Monitor for acute drop in hemoglobin he does have active hematuria Sepsis with UTI Criteria met with tachypnea, leukocytosis, hypothermia Prior cystitis on previous admission and he was discharged on fluconazole and Levaquin, currently on caspofungin, Zosyn Previous urine culture 8/5 +Domi albicans Reduced action fraction status post AICD placement Left ventricular thrombus with intracavity thrombus Not a candidate of anticoagulation No active chest pain Chronic hypotension with underlying cardiomyopathy Last time I had to tell the nurse to use cuff size 10 because he is so weak he does not have good muscle mass to you size 11 He also have hypoalbuminemia Would use midodrine, normal TSH and cortisol level DNR/DNI Clear liquid diet, advance if no plan for cystoscopy DVT prophylaxis contraindicated: SCDs Attestations Medical Necessity Statement*: Continue management for persistent hematuria supratherapeutic INR Time Spent in Patient Care: 16 - 35 minutes Coding Level of Care Code Acute Sports Analyst for [facility] Fwd Diagnoses Hematuria R31.0 Hematuria type: gross Supratherapeutic INR R79.1 Acute renal failure N17.9 Acute renal failure type: unspecified UTI (urinary tract infection) N39.0; R31.9 Urinary tract infection type: site unspecified Hematuria presence: with hematuria Sepsis A41.9 Coagulopathy D68.9 Weakness R53.1 Decubitus ulcer L89.90 Diabetes mellitus, type II E11.65 Diabetes mellitus manager intermediate insulin use: without manager intermediate use Diabetes mellitus complication status: with hyperglycemia Pacemaker Z95.0 Ischemic cardiomyopathy I25.5 Aneurysm I72.9
[2021-07-19 16:54] LABS: Hematocrit 29.7 % (42.0-52.0)
[2021-07-19 17:19] LABS: Glucose Point of Care 165 mg/dL (70-110)
--- NOTE | 2021-07-19 17:23 | PC.NURSE ---
Cabral manually irrigated multiple times this shift. Dime sized clots were removed. Draining out bright red blood.
--- NOTE | 2021-07-19 18:48 | P.CONIM_ITS ---
Providers/Reason For Consult Consulting Physician/Specialty*: Urology/Lew Reason for Consult*: Gross hematuria Attending Physician: Medina Ye MD Primary Care Provider: Param Kamara MD History of Present Illness History of Present Illness Anish Harris is a 75 year old male well-known to me for recent evaluation while hospitalized. I was called because they could not get a catheter in him for bladder management at time of acute renal failure. Was found to have a distal urethral stricture requiring dilation And a 14 Guatemalan catheter was placed after dilation over a guidewire. He recovered and was scheduled to follow-up with me in the clinic early next week for repeat cystoscopy under better conditions to evaluate the bladder. Was readmitted to the hospital last night for gross hematuria, clot retention, acute renal failure, lethargy, weakness and failure to thrive. Was found to have a markedly elevated INR (5.8) and his creatinine had increased to 6.5. CT scan without contrast demonstrated Cabral catheter in place with a decompressed bladder and mildly dilated collecting systems likely sales training representative of chronic hydronephrosis from his previous bladder outlet obstruction. I was consulted for further evaluation. PROCEDURE: Catheter exchange (20 Guatemalan hematuria catheter) 14 Guatemalan catheter was removed. A 16 Guatemalan catheter was introduced into the urethral meatus and easily accommodated there. A 20 Guatemalan Roberth hematuria catheter was then passed into the bladder with mild restriction through the distal urethra. While the 14 Guatemalan catheter was not draining at all a large amount of urine and clot was then evacuated from the bladder with a catheter. Irrigation revealed or clots and grossly bloody urine. Catheter was placed to dependent drainage. Reviewed with nursing staff. Can switch to large bore CBI if manual irrigation is not adequate after correcting his coagulopathy. Encouraged regular manual irrigations to prevent clot formation. Review of Systems Const: Reports: malaise; Denies: fever(s) or chills Eyes: Denies: change in vision or eye discharge ENMT: Denies: odynophagia or oral sores Card: Denies: chest pain or syncope Resp: Denies: wheezing, stridor or hemoptysis GI: Denies: abdominal pain or vomiting : Reports: hematuria and other (Cabral catheter in place); Denies: flank pain Musc: Reports: joint stiffness; Denies: neck pain or joint redness Skin/Breast: Denies: rash Neuro: Reports: confusion; Denies: Slurred speech present or seizure-like activity Psych: Reports: memory loss (He thought he was in a house that he built in 1988.) Endo: Reports: tired all the time; Denies: polydipsia Fermin/Lymph: Denies: easy bruising or enlarged lymph nodes All/Imm: Denies: urticaria or acute wheezing Meds/Allergies Home Medications and Allergies Home Medications Medication Instructions Recorded Confirmed Last Taken Type levothyroxine 100 mcg tablet 100 mcg PO .DAILY EXCEPT ON SUN 04/19/20 07/18/21 07/17/21 History magnesium 2 tab PO DAILY 04/19/20 07/18/21 07/05/21 History rosuvastatin 20 mg tablet 20 mg PO BEDTIME 04/19/20 07/18/21 07/17/21 History tamsulosin 0.4 mg capsule 0.4 mg PO BEDTIME cap 04/12/21 07/18/21 07/17/21 History blood-glucose meter [Accu-Chek #1 ea 07/05/21 07/18/21 Unknown Rx Ruth Plus Meter] lancets-blood glucose strips #200 ea 07/05/21 07/18/21 Unknown Rx metoprolol tartrate 50 mg tablet 25 mg PO BID PRN tab 07/11/21 07/18/21 Unknown History fluconazole 100 mg PO [facility] 07/18/21 07/18/21 07/18/21 08:00 History insulin glargine [Lantus Solostar 5 unit SUBCUT [facility] 07/18/21 07/18/21 07/18/21 08:00 History U-100 Insulin] multivit with min-folic acid 2 tab PO QAM 07/18/21 07/18/21 Unknown History [Adult Multivitamin Gummies] warfarin 3 mg PO DAILY@14 07/18/21 07/18/21 07/18/21 History Allergies Allergy/AdvReac Type Severity Reaction Status Date / Time No Known Allergies Allergy Verified 07/11/21 09:47 Current Medications Current Medications Generic Name Dose Route Start Last Admin Trade Name Freq PRN Reason Stop Dose Admin Famotidine 20 mg 07/18/21 22:45 07/19/21 11:05 Famotidine 20 Mg/2 Ml Inj IVP 20 mg Q12H NIRU Administration Sodium Chloride 1,000 mls @ 100 mls/hr 07/18/21 19:15 07/19/21 17:31 Sodium Chloride 0.9% IV 100 mls/hr .Q10H NIRU Administration Piperacillin Sod/Tazobactam 50 mls @ 12.5 mls/hr 07/19/21 02:00 07/19/21 15:47 Sod 3.375 gm/ Sodium Chloride IV 12.5 mls/hr Q12H NIRU Administration Protocol Sodium Bicarbonate 150 meq/ 1,150 mls @ 100 mls/hr 07/19/21 08:15 07/19/21 08:30 Dextrose IV 100 mls/hr .[id number] NIRU Administration Insulin Aspart 0 unit 07/19/21 08:00 07/19/21 17:31 Insulin Aspart 100 Unit/1 Ml SUBCUT 4 unit WM&BEDTIME NIRU Administration Protocol Morphine Sulfate 2 mg 07/18/21 19:15 07/18/21 19:41 Morphine 4 Mg/Ml Sdv 1 Ml IVP 2 mg Q4H PRN Administration SEVERE PAIN PFSH Acute PFSH: Medical History (Updated 07/19/21 @ 18:55 by Alejo Lew MD) Benign essential HTN CAD (coronary artery disease) Diabetes mellitus, type II Cabral catheter in place Hyperlipidemia Ischemic cardiomyopathy Left ventricular aneurysm Pacemaker 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 Pyocystis Subcapital fracture of left hip Urethral stricture Urethral stricture UTI (urinary tract infection) Ventricular arrhythmia Ventricular arrhythmia EKG from today revealed sinus rhythm with first-degree AV block diffuse nonspecific T wave changes Surgical History H/O cystoscopy History of implantable cardiac defibrillator (ICD) History of implantable cardioverter-defibrillator (ICD) insertion History of permanent cardiac pacemaker placement History of total left hip replacement Family History Brother Diabetes Heart disease CAD (coronary artery disease) Hypertension Lung disease Father Stroke Sister Lung disease Dementia Cancer Mother Lung disease Denies family history of Clotting disorder Suicide Anesthesia complication Bleeding disorder Social History Smoking and tobacco status: never smoked Alcohol intake: never Vitals/I&O/Wt Last Vital Signs Temp 97.2 F L 07/19/21 15:13 Pulse 79 07/19/21 17:00 Resp 16 07/19/21 17:00 BP 87/45 07/19/21 17:00 Pulse Ox 94 07/19/21 17:00 07/19/21 07/19/21 07/19/21 06:59 14:59 22:59 Intake Total 2050 / 4150 1000 / 1000 Output Total 650 / 1350 100 / 100 Balance 1400 / 2800 -100 / -100 1000 / 900 Weight last 48 hrs Weight 142 lb Physical Exam Const: COMMON NORMALS: no acute distress, alert and well nourished GENERAL APPEARANCE: cooperative, well kempt, well developed and ill appearing HENMT: COMMON NORMALS: normocephalic and atraumatic HEAD & SCALP: normocephalic and atraumatic Eye: COMMON NORMALS: no scleral icterus Neck/C-Spine: COMMON NORMALS: full ROM Resp: COMMON NORMALS: normal respiratory effort EFFORT & INSPECTION: No labored, No Actively coughing and No audible wheezes Cardio: COMMON NORMALS: regular rate RATE: regular rate GI: COMMON NORMALS: Soft to palpation PALPATION: Yes Soft to palpation and No Tenderness to palpation present (GI) : MALE GROIN/PERINEUM EXAM: No ecchymosis PENIS: normal penis MEATUS: meatus normal, no meatla discharge and No Blood at meatus present SCROTUM: No edematous and No scrotal swelling Neuro: SENSORIUM/ORIENTATION: Yes alert Psych: APPEARANCE: Yes grossly normal and Yes well kempt ATTITUDE: Yes calm Skin: COMMON NORMALS: no rashes or lesions noted and no jaundice GENERAL SKIN EXAM: no rashes or lesions noted Data Micro: Micro: Microbiology 07/18/21 17:05 Blood Culture - Pr eliminary Blood NEGATIVE TO DOROTHEA E 07/18/21 17:10 Blood Culture - Pr eliminary Blood NEGATIVE TO DOROTHEA E A&P Assessment and plan (1) Hematuria: Status: Acute Qualifiers: Hematuria type: gross Qualified Code(s): R31.0 - Gross hematuria (2) Supratherapeutic INR: Status: Acute (3) Acute renal failure: Status: Acute Qualifiers: Acute renal failure type: unspecified Qualified Code(s): N17.9 - Acute kidney failure, unspecified (4) 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
[2021-07-19 21:06] LABS: Hematocrit 30.8 % (42.0-52.0)
[2021-07-19] MEDS: midodrine 5 mg TABLET 10 MG PO (21:15)
[2021-07-20] VITALS (44 sets, daily range): BP systolic 71–129; BP diastolic 38–89; PULSE 69–102; RESP 4–31; TEMP 36.4–37.1; O2SAT 81–100
--- NOTE | 2021-07-20 01:35 | PC.NURSE ---
2330 map 58, dr jean-baptiste approved t.o. for levophed and notified of large bloody BM, unable to obtain IV access, dr. martin placed a long peripheral IV to bilateral upper arm
[2021-07-20] MEDS: piperacillin-tazobactam 3.375 GM in sodium chloride 0.9% (plus) 50 ML IV ×2 (02:30→14:26)
[2021-07-20 03:09] LABS: Basophils % 0.1 %; Eosinophils # 0.1 10^3/uL (0.0-0.8); Eosinophils % 0.6 %; Hematocrit 27.9 % (42.0-52.0); Hemoglobin 9.6 g/dL (11.7-16.6); Lymphocytes # 0.9 10^3/uL (0.8-4.8); Mean Corpuscular HGB Conc 34.4 g/dL (30.0-36.0); Mean Corpuscular Hemoglobin 28.7 pg (28.0-34.0); Mean Corpuscular Volume 83.5 fl (80-94); Mean Platelet Volume 9.1 fL (7.4-10.4); Monocytes # 0.5 10^3/uL (0.2-0.9); Monocytes % 5.3 %; Neutrophils # 7.66 10^3/uL (1.8-7.7); Nucleated Red Blood Cells % 0 %; Platelet Count 173 10^3/cmm (130-400); Red Blood Count 3.34 10^6/uL (4.1-5.3); White Blood Count 9.4 10^3/uL (4.0-10.0)
[2021-07-20 03:25] LABS: INR 3.77 (0.8-1.2)
[2021-07-20 03:39] LABS: Procalcitonin 0.42 ng/mL (0-0.5)
[2021-07-20 03:51] LABS: Anion Gap 20.8 (5-19); Calcium 7.7 mg/dL (8.5-10.5); Carbon Dioxide 19 mmol/L (22-29); Chloride 101 mmol/L (98-107); Glucose 151 mg/dL (65-115); Osmolality Calculated 318 mOsm/kg (285-295); Potassium 3.8 mmol/L (3.5-5.1); Sodium 137 mmol/L (136-145)
[2021-07-20 03:53] LABS: Blood Urea Nitrogen 99 mg/dL (8-23)
[2021-07-20 03:55] LABS: Partial Thromboplastin Time 84.3 SECONDS (23.9-36.7)
--- NOTE | 2021-07-20 06:04 | PC.NURSE ---
Dr. Lew called, t.o. given to continue manual foly irrigation with sterile water
[2021-07-20 07:46] LABS: Glucose Point of Care 226 mg/dL (70-110)
[2021-07-20] MEDS: midodrine 5 mg TABLET 10 MG PO ×3 (08:43→20:46)
--- NOTE | 2021-07-20 08:43 | PC.NURSE ---
PO pills PO Midodrine crushed and mixed with applesauce for administration per patient request.
--- NOTE | 2021-07-20 09:39 | PC.NURSE ---
Dominguez Dominguez catheter noted to have drainage around insertion. Irrigated dominguez with 40 ml sterile water, no clots present. Absorbent pads replaced and pericare completed.
--- NOTE | 2021-07-20 09:40 | PC.NURSE ---
Supplement Nutritional supplement offered to patient; patient refused.
[2021-07-20] MEDS: famotidine 20 mg/2 mL INJ IVP ×2 (10:13→23:04)
[2021-07-20 11:25] LABS: Glucose Point of Care 153 mg/dL (70-110)
--- NOTE | 2021-07-20 12:28 | PC.NURSE ---
Optifoam dressing Optifoam dressings applied to left and right hip pressure injuries as per orders.
[2021-07-20 14:20] LABS: Hemoglobin 9.9 g/dL (11.7-16.6)
--- NOTE | 2021-07-20 14:36 | P.PN_ITS ---
Subjective Subjective: Interval history: Chai hematuria via twenty Malawian Cabral catheter Some oozing of urine with blood noted around the external meatus Overnight required use of vasopressors hemoglobin trickling down to 9.6, repeat H&H 9.9 today Plan to transfuse if hemoglobin drops below nine, INR 3.7 today Creatinine improving 4.5 Patient only oriented to himself Vitals/I&O/Wt Last Vital Signs Temp 98.2 F 07/20/21 11:00 Pulse 85 07/20/21 14:00 Resp 16 07/20/21 13:30 BP 96/63 07/20/21 13:30 Pulse Ox 98 07/20/21 13:30 07/19/21 07/20/21 07/20/21 22:59 06:59 14:59 Intake Total 2200 / 2200 1389.250 / 1389.250 Output Total 700 / 800 Balance 2200 / 2100 -700 / 1400 1389.250 / 1389.250 Weight last 48 hrs Weight 64.41 kg Physical Exam Narrative: EXAM NARRATIVE: Patient was laying in supine position Oriented to himself only Requiring vasopressors at 2 mics Variable S1-S2 no active signs of heart failure AICD in place Abdomen soft Patient is endorsing not feeling hungry No neurological deficits noted Unstageable pressure ulcer of surgical area Stage II bilateral pressure ulcer of buttocks bilaterally Twenty Malawian Cabral catheter draining chai hematuria No audible stridor or wheezing saturating well on room air Data : 07/20/21 14:11 07/20/21 03:00 Micro: Microbiology 07/18/21 17:10 Urine Culture - Preliminary Urine,Clean Catch Yeast 07/18/21 17:05 Blood Culture - Preliminary Blood NEGATIVE TO DATE 07/18/21 17:10 Blood Culture - Preliminary Blood NEGATIVE TO DATE A&P Assessment and plan (1) Blood clot in bladder: Status: Acute (2) 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: Status: Acute (3) Hematuria: Status: Acute Qualifiers: Hematuria type: gross Qualified Code(s): R31.0 - Gross hematuria (4) Supratherapeutic INR: Status: Acute (5) Acute renal failure: Status: Acute Qualifiers: Acute renal failure type: unspecified Qualified Code(s): N17.9 - Acute kidney failure, unspecified (6) UTI (urinary tract infection): Status: Acute Qualifiers: Urinary tract infection type: site unspecified Hematuria presence: with hematuria Qualified Code(s): N39.0 - Urinary tract infection, site not specified; R31.9 - Hematuria, unspecified (7) Sepsis: Status: Acute (8) Coagulopathy: Status: Acute (9) Weakness: Status: Acute (10) Decubitus ulcer: Status: Acute (11) Diabetes mellitus, type II: Status: Acute Qualifiers: 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 insulin use: without care home use Diabetes mellitus complication status: with hyperglycemia Qualified Code(s): E11.65 - Type 2 diabetes mellitus with hyperglycemia (12) Pacemaker: Status: Acute (13) Ischemic cardiomyopathy: Status: Acute (14) Aneurysm: Status: Acute Additional A&P Information Chai hematuria Acute blood loss anemia Hemoglobin 9.9, will transfuse if less than nine currently requiring vasopressors at two mics INR 3.7, might benefit from CBI once INR around 3 Supratherapeutic INR: Received one FFP and vitamin K INR today 3.7 with active hematuria hemoglobin 9.9 INDERJIT secondary to post renal obstructive uropathy Creatinine improving Hyperkalemia: Improved Acidosis: Improving, will discontinue bicarb today Sepsis secondary to UTI Septic shock with underlying worsening of encephalopathy Added midodrine to titrate off vasopressors Currently on antifungal and Zosyn will give a dose of albumin today Coumadin on hold which was initiated for left ventricular aneurysm with thrombus COVID-19 PCR is pending Patient is endorsing anorexia, , advance his diet toGIsoft today DVT prophylaxis: Contraindicated DNR/DNI Guarded prognosis Previous urine culture positive for Domi albicans which will be covered by caspofungin Attestations Medical Necessity Statement*: Continue ICU management currently requiring vasopressors Time Spent in Patient Care: 16 - 35 minutes Coding Level of Care Code Acute [employer] Support Specialist for [facility] Fwd Diagnoses Blood clot in bladder N32.89 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
[2021-07-20 14:57] LABS: Coronavirus Test Green County Not Detected
[2021-07-20] MEDS: albumin 12.5 GM/250 ML VIAL IV (15:02)
--- NOTE | 2021-07-20 15:44 | PC.NURSE ---
Position Patient refused to turn on left side; patient stated he wanted to remain supine.
--- NOTE | 2021-07-20 15:52 | PC.NURSE ---
notified The results of the covid test were negative, informed via telephone.
[2021-07-20 17:15] LABS: Glucose Point of Care 101 mg/dL (70-110)
--- NOTE | 2021-07-20 18:44 | PC.NURSE ---
Cabral Cabral noted to not be draining, irrigated with 40 ml sterile water. Cabral patent and draining.
--- NOTE | 2021-07-20 19:01 | PC.NURSE ---
Shift Note Frequent safety and comfort rounds continue. Orders and/or nursing care completed as indicated. Patient monitored for response to intervention and treatment(s). Education provided to patient and which includes fall risk precautions, medications administered, and information about pt/inr and the risk for bleeding. Patient and verbalized understanding.
[2021-07-20 20:58] LABS: Glucose Point of Care 117 mg/dL (70-110)
[2021-07-21] VITALS (50 sets, daily range): BP systolic 84–126; BP diastolic 39–65; PULSE 60–83; RESP 8–22; TEMP 36.5–37.2; O2SAT 94–100
[2021-07-21] MEDS: piperacillin-tazobactam 3.375 GM in sodium chloride 0.9% (plus) 50 ML IV ×2 (01:49→13:57)
[2021-07-21 02:53] LABS: Basophils % 0.4 %; Eosinophils # 0.3 10^3/uL (0.0-0.8); Eosinophils % 3.2 %; Hematocrit 29.2 % (42.0-52.0); Hemoglobin 9.2 g/dL (11.7-16.6); Lymphocytes # 2.3 10^3/uL (0.8-4.8); Lymphocytes % 28.7 %; Mean Corpuscular HGB Conc 31.5 g/dL (30.0-36.0); Mean Corpuscular Hemoglobin 28.5 pg (28.0-34.0); Mean Corpuscular Volume 90.4 fl (80-94); Mean Platelet Volume 9.7 fL (7.4-10.4); Monocytes # 0.8 10^3/uL (0.2-0.9); Monocytes % 9.8 %; Neutrophils # 4.47 10^3/uL (1.8-7.7); Neutrophils % 55.4 %; Nucleated Red Blood Cells % 0 %; Platelet Count 195 10^3/cmm (130-400); Red Blood Count 3.23 10^6/uL (4.1-5.3); Red Cell Distribution Width 16.4 % (12.1-15.1); White Blood Count 8.1 10^3/uL (4.0-10.0)
[2021-07-21 03:13] LABS: INR 2.49 (0.8-1.2)
[2021-07-21 03:14] LABS: Partial Thromboplastin Time 45.3 SECONDS (23.9-36.7)
[2021-07-21 03:22] LABS: Blood Urea Nitrogen 75 mg/dL (8-23); Carbon Dioxide 23 mmol/L (22-29); Chloride 102 mmol/L (98-107); Glucose 115 mg/dL (65-115); Osmolality Calculated 309 mOsm/kg (285-295); Sodium 138 mmol/L (136-145)
[2021-07-21 03:32] LABS: Anion Gap 17.1 (5-19); Potassium 4.1 mmol/L (3.5-5.1)
--- NOTE | 2021-07-21 06:17 | PC.NURSE ---
Shift Note Frequent safety and comfort rounds continue. Orders and nursing care completed as indicated. Patient monitored for response to intervention and treatments. Education provided including frequent position changes for pressure injury management and educated on need for catheter irrigation. Patient verbalizes understanding but would benefit from reinforcement. Discussed possibility of central venous access with hospitalist. Received orders to wait for INR levels. levophed resarted for blood pressure management will continue to monitor
[2021-07-21 07:57] LABS: Glucose Point of Care 143 mg/dL (70-110)
[2021-07-21] MEDS: midodrine 5 mg TABLET 10 MG PO ×3 (09:26→22:24)
[2021-07-21 12:16] LABS: Glucose Point of Care 223 mg/dL (70-110)
[2021-07-21] MEDS: famotidine 20 mg/2 mL INJ IVP ×2 (12:24→22:12)
--- NOTE | 2021-07-21 12:36 | PC.NURSE ---
took cup of ice cream, carton of glucerna, 1/4 of sweet potatoes. chasity. well. fed pt. with encouragement to eat.
--- NOTE | 2021-07-21 13:25 | PC.SOCIAL ---
IMM update IMM updated with patient. Copy provided. Initialled, dated, timed, and placed in chart.
--- NOTE | 2021-07-21 14:06 | PC.NURSE ---
0800-recd. resting quietly w/o complaints.
--- NOTE | 2021-07-21 14:17 | P.PN_ITS ---
Subjective Subjective: Interval history: Patient was seen and examined in the ICU Tevin hematuria with blood clots pulmonary irrigation done by nursing staff overnight We'll touch base with Dr. Lew if he would start CBI today since his INR is 1.4 Patient is endorsing poor p.o. intake, lethargy and fatigue, oriented to himself Patient wanted to have a bowel movement today, nurse was updated to provide him a bedpan Patient does show signs of gradual decline on daily basis Currently requiring levo Overnight his pacemaker did kick in, pacer spikes noted on telemetry Heart rate staying in the low 60s Vitals/I&O/Wt Last Vital Signs Temp 98.7 F 07/21/21 08:30 Pulse 72 07/21/21 12:30 Resp 22 H 07/21/21 12:30 BP 96/44 07/21/21 12:30 Pulse Ox 100 07/21/21 12:30 07/20/21 07/21/21 07/21/21 22:59 06:59 14:59 Intake Total 375.000 / 1764.250 65.621 / 1829.871 120 / 120 Output Total 745 / 745 550 / 1295 Balance -370.000 / 1019.250 -484.379 / 534.871 120 / 120 Physical Exam Narrative: EXAM NARRATIVE: Patient fatigue and lethargic however verbally redirectable Oriented to himself Muscle mass loss, emaciated Unstageable sacral ulcer Tevin hematuria with blood clots in urine bag Variable S1-S2 AICD in place Soft abdomen EOMI, PERRLA No neurological deficits Extremely tired to get up on his own Data : 07/21/21 02:12 07/21/21 02:35 Micro: Microbiology 07/18/21 17:10 Urine Culture - Preliminary Urine,Clean Catch Yeast A&P Assessment and plan (1) Blood clot in bladder: Status: Acute (2) 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: Status: Acute (3) Hematuria: Status: Acute Qualifiers: Hematuria type: gross Qualified Code(s): R31.0 - Gross hematuria (4) Supratherapeutic INR: Status: Acute (5) Acute renal failure: Status: Acute Qualifiers: Acute renal failure type: unspecified Qualified Code(s): N17.9 - Acute kidney failure, unspecified (6) UTI (urinary tract infection): Status: Acute Qualifiers: Urinary tract infection type: site unspecified Hematuria presence: with hematuria Qualified Code(s): N39.0 - Urinary tract infection, site not specified; R31.9 - Hematuria, unspecified (7) Sepsis: Status: Acute (8) Weakness: Status: Acute (9) Coagulopathy: Status: Acute (10) Decubitus ulcer: Status: Acute (11) Diabetes mellitus, type II: Status: Acute Qualifiers: Diabetes mellitus alf insulin use: without alf use Diabetes mellitus complication status: with hyperglycemia Qualified Code(s): E11.65 - Type 2 diabetes mellitus with hyperglycemia (12) Pacemaker: Status: Acute (13) Aneurysm: Status: Acute Additional A&P Information Persistent hematuria Requiring manual irrigation INR 2.4 we'll touch base with Dr. Lew if we can start CBI Sepsis with shock Currently on antibiotics and antifungal Requiring levo Midodrine added yesterday Urine growing yeast Bradycardia with pacemaker discharge Pacer spikes noted on telemetry Potassium is normal We'll get pacemaker evaluation Supratherapeutic INR: Persistent hematuria, hemoglobin hanging around 9, would not need Coumadin in the future despite left ventricular aneurysm with hospice INDERJIT secondary to post renal obstruction: Creatinine improving today 3.7 Acidosis improved, normal anion gap today, BUN improving as well Covid PCR negative DNR/DNI poor prognosis Patient wants to keep himself on his GI soft diet for now, does have poor p.o. 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
--- NOTE | 2021-07-21 14:56 | PC.NURSE ---
0900:irrigated dominguez with 40cc sterile water x 3, with pink return. no clots noted, irriated easily.
--- NOTE | 2021-07-21 14:58 | PC.NURSE ---
1500-irrigated dominguez with 40cc sterile water, with pink return. no clots noted. no leaking aroundd meatus noted.
[2021-07-21] MEDS: hydrocortisone 100 mg/2 mL SDV IVP (16:07)
--- NOTE | 2021-07-21 17:25 | PC.NURSE ---
Addendum entered by Suyapa Alejo RN 07/21/21 17:57: 20 fr. hematuria cath. removed in tact prior to inserting [address] Original Note: manual irrigation done. bladder emptied, 50cc instilledx2 with last 50ccs drawn back and another 50ccs instilled. this done with 8 50cc syringes emptied. instructed to insert [address] dominguez to irrigate bladder. 24 fr. dominguez inserted under vibration technician. bladder irrigation started to keep irrigant return light pink. tolerated procedure well. was unable to start an iv in right forearm. consents obtained for cvl. or piic.
[2021-07-21 17:33] LABS: Glucose Point of Care 189 mg/dL (70-110)
--- NOTE | 2021-07-21 17:50 | PC.NURSE ---
appetite poor for dinner.
[2021-07-21 21:40] LABS: Glucose Point of Care 167 mg/dL (70-110)
[2021-07-22] VITALS (47 sets, daily range): BP systolic 76–117; BP diastolic 34–68; PULSE 59–109; RESP 9–26; TEMP 36.5–36.8; O2SAT 94–99
[2021-07-22] MEDS: hydrocortisone 100 mg/2 mL SDV IVP ×2 (01:37→14:57)
--- NOTE | 2021-07-22 02:59 | PC.NURSE ---
patients bath completed and wound care done at this time. new dressing applied
[2021-07-22 03:32] LABS: Basophils % 0.1 %; Eosinophils % 0.1 %; Hematocrit 29.5 % (42.0-52.0); Hemoglobin 9.2 g/dL (11.7-16.6); Lymphocytes # 0.7 10^3/uL (0.8-4.8); Lymphocytes % 10.4 %; Mean Corpuscular HGB Conc 31.2 g/dL (30.0-36.0); Mean Corpuscular Hemoglobin 28.4 pg (28.0-34.0); Mean Platelet Volume 9.4 fL (7.4-10.4); Monocytes # 0.3 10^3/uL (0.2-0.9); Monocytes % 3.6 %; Neutrophils # 5.72 10^3/uL (1.8-7.7); Neutrophils % 83.6 %; Nucleated Red Blood Cells % 0 %; Platelet Count 166 10^3/cmm (130-400); Red Blood Count 3.24 10^6/uL (4.1-5.3); Red Cell Distribution Width 16.2 % (12.1-15.1); White Blood Count 6.9 10^3/uL (4.0-10.0)
[2021-07-22 03:44] LABS: INR 2.72 (0.8-1.2)
[2021-07-22 03:51] LABS: Anion Gap 15.2 (5-19); Blood Urea Nitrogen 58 mg/dL (8-23); Carbon Dioxide 22 mmol/L (22-29); Chloride 103 mmol/L (98-107); Glucose 248 mg/dL (65-115); Osmolality Calculated 308 mOsm/kg (285-295); Potassium 3.2 mmol/L (3.5-5.1); Sodium 137 mmol/L (136-145)
--- NOTE | 2021-07-22 06:11 | PC.NURSE ---
Shift Note Frequent safety and comfort rounds continue. Orders and nursing care completed as indicated. Patient monitored for response to intervention and treatments. Education provided including need for frequent position changes to help with the healing of wounds. Patient verbalizes understanding and does assist with treatment plan. CBI catheter still patent and intact. No issues noted throughout the shift Will continue to monitor.
[2021-07-22 07:36] LABS: Glucose Point of Care 238 mg/dL (70-110)
[2021-07-22] MEDS: midodrine 5 mg TABLET 10 MG PO ×3 (09:09→20:20)
[2021-07-22] MEDS: morphine 4 mg/mL SDV 1 mL 2 MG IVP ×3 (10:11→22:35)
[2021-07-22] MEDS: famotidine 20 mg/2 mL INJ IVP (10:11)
[2021-07-22 12:08] LABS: Glucose Point of Care 307 mg/dL (70-110)
--- NOTE | 2021-07-22 16:14 | P.PN_ITS ---
Subjective Subjective: Interval history: CBI was initiated. His urine no more blood clots urine color has changed to clear We have lost IV access, requested PICC line placement Patient is not endorsing any new pain chest pain or shortness of breath Vitals/I&O/Wt Last Vital Signs Temp 97.9 F 07/22/21 13:47 Pulse 65 07/22/21 15:17 Resp 24 H 07/22/21 12:30 BP 95/48 07/22/21 12:30 Pulse Ox 98 07/22/21 12:30 07/22/21 07/22/21 07/22/21 06:59 14:59 22:59 Intake Total 250 / 610 60 / 60 Balance 250 / -190 60 / 60 Physical Exam Narrative: EXAM NARRATIVE: Patient was laying supine Cabral catheter draining clear urine Patient is saturating well on room air Variable S1-S2 AICD [address] Soft abdomen no signs of peritonitis Emaciated muscle mass loss Lower extremity no edema Unstageable sacral ulcer Stage I ulcer around iliac spine Oriented to himself Verbally redirectable no neurological deficit Data : 07/22/21 03:23 07/22/21 03:23 A&P Assessment and plan (1) Blood clot in bladder: Status: Acute (2) 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: Status: Acute (3) Hematuria: Status: Acute Qualifiers: Hematuria type: gross Qualified Code(s): R31.0 - Gross hematuria (4) Supratherapeutic INR: Status: Acute (5) Acute renal failure: Status: Acute Qualifiers: Acute renal failure type: unspecified Qualified Code(s): N17.9 - Acute kidney failure, unspecified (6) UTI (urinary tract infection): Status: Acute Qualifiers: Urinary tract infection type: site unspecified Hematuria presence: with hematuria Qualified Code(s): N39.0 - Urinary tract infection, site not specified; R31.9 - Hematuria, unspecified (7) Sepsis: Status: Acute (8) Coagulopathy: Status: Acute (9) Weakness: Status: Acute (10) Decubitus ulcer: Status: Acute (11) Ventricular arrhythmia: Status: Acute (12) Ischemic cardiomyopathy: Status: Acute Additional A&P Information Hematuria 20 Tamaz[place] three-way Cabral catheter CBI started yesterday, today urine looks clear Hemoglobin stable Coagulopathy with supratherapeutic INR INR less than 3 Not a candidate of Coumadin or any anticoagulation considering recent episode of profuse hematuria Sepsis with shock: Patient has been requiring vasopressors on and off, no use of vasopressors in last 12 hours Continue midodrine PICC line to be placed Discontinue antibiotic discontinue antibiotics, continue antifungal INDERJIT: Resolving today creatinine is better than yesterday No signs of hyperkalemia acidosis improved Unstageable sacral ulcer high risk for contamination Once his coagulopathy resolves, will need debridement and wound care Covid PCR negative DNR/DNI poor prognosis, Talk with his , she might opt for comfort care in case further decline in his status Attestations Medical Necessity Statement*: Will transfer out of will transfer out of ICU tomorrow if no vasopressor required overnight Time Spent in Patient Care: less than 15 minutes Coding Level of Care Code Acute Lead Software Developer for Chg Fwd Diagnoses Blood clot in bladder N32.89 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
[2021-07-22 18:27] LABS: Glucose Point of Care 212 mg/dL (70-110)
[2021-07-22 20:07] LABS: Glucose Point of Care 167 mg/dL (70-110)
[2021-07-23] VITALS (24 sets, daily range): BP systolic 91–115; BP diastolic 44–67; PULSE 59–86; RESP 9–39; TEMP 36.6–36.8; O2SAT 94–100
[2021-07-23] MEDS: morphine 4 mg/mL SDV 1 mL 2 MG IVP ×2 (02:00→05:20)
[2021-07-23 03:29] LABS: Basophils % 0.1 %; Hematocrit 29.9 % (42.0-52.0); Hemoglobin 9.4 g/dL (11.7-16.6); Lymphocytes # 1.2 10^3/uL (0.8-4.8); Mean Corpuscular HGB Conc 31.4 g/dL (30.0-36.0); Mean Corpuscular Hemoglobin 28.7 pg (28.0-34.0); Mean Corpuscular Volume 91.4 fl (80-94); Mean Platelet Volume 9.2 fL (7.4-10.4); Monocytes # 0.4 10^3/uL (0.2-0.9); Neutrophils # 11.69 10^3/uL (1.8-7.7); Neutrophils % 86.1 %; Nucleated Red Blood Cells % 0.1 %; Platelet Count 188 10^3/cmm (130-400); Red Blood Count 3.27 10^6/uL (4.1-5.3); Red Cell Distribution Width 16.4 % (12.1-15.1); White Blood Count 13.6 10^3/uL (4.0-10.0)
[2021-07-23 03:40] LABS: INR 3.38 (0.8-1.2)
[2021-07-23 03:55] LABS: Anion Gap 15.1 (5-19); Blood Urea Nitrogen 59 mg/dL (8-23); Calcium 8.1 mg/dL (8.5-10.5); Carbon Dioxide 21 mmol/L (22-29); Chloride 106 mmol/L (98-107); Glucose 155 mg/dL (65-115); Osmolality Calculated 308 mOsm/kg (285-295); Potassium 3.1 mmol/L (3.5-5.1); Sodium 139 mmol/L (136-145)
--- NOTE | 2021-07-23 06:18 | PC.NURSE ---
Shift Note Frequent safety and comfort rounds continue. Orders and/or nursing care completed as indicated. Patient monitored for response to intervention and treatment(s). CBI continued per orders. Pain managed with morphine. Will continue to monitor.
--- NOTE | 2021-07-23 08:38 | PC.CHAP ---
Pastoral Care Encounter/Spiritual Assessment Type of Contact [] Declined medical surgery nurse visit [] Patient/Family/Request visit [] Outpatient visit [] Follow-up visit [] Physician referral [] Code/Alert [x] Routine visit [] Staff referral [] Actively dying [] Patient sleeping [] Family support [] [] Out of room [] Palliative care [] [] Receiving care in room [] Pre-surgical visit [] Trauma [] Long length of stay [x] ICU visit [] Other: Relational/Emotional Strength [] Patient feels connected with others/family/visitors/staff [] Distress [] Loneliness/isolation [] Abandonment Spirituality of Patient [] Person of Roma [] Attends Episcopal of their Roma [] Believes in Prayer [] Reads Bible or Rastafarian materials [] There are Spiritual issues to be addressed Dance Artist Interventions [x] Prayer [] Active listening [] Non-anxious presence [] Spiritual/emotional support [] Crisis/trauma care [] Spiritual counseling [] Bereavement support [] Provided bereavement packet [] Provided Bible/devotional materials [] Provided toy/stuffed animal, coloring book to patient or family member [] Provided Communion [] Anointing/[employer] [] Salvation [x] Completed spiritual assessment [] Other: Impact on Illness or Injury [] Angry [] Fearful [] Anxious [] Often cries [] Exhaustion [] Unable to work [] Unable to attend presybeterian [] Unable to walk/stand [] Unable to read [] Unable to drive [] Unable to eat/drink [] Unable to sleep [] Unable to be with family [] Patient intubated [] Other: Summary Time spent with patient
[2021-07-23] MEDS: midodrine 5 mg TABLET 10 MG PO ×3 (08:47→22:09)
[2021-07-23 11:37] LABS: Glucose Point of Care 213 mg/dL (70-110)
--- NOTE | 2021-07-23 15:03 | PC.SOCIAL ---
IMM update IMM updated with patient and at bedside. Copy provided. Initialled, dated, timed, and placed in chart.
[2021-07-23 17:05] LABS: Glucose Point of Care 169 mg/dL (70-110)
--- NOTE | 2021-07-23 18:46 | PM.PN ---
Subjective Subjective: Interval history: Urine color has improved patient has not been requiring vasopressors, transfer out of ICU Patient was eating his breakfast when entered the room I have tried to call his daughter and however was not able to get in touch with them Family might pursue comfort measures in case of further decline, was leaning towards home hospice Vitals/I&O/Wt Last Vital Signs Temp 97.9 F 07/23/21 15:57 Pulse 68 07/23/21 15:57 Resp 17 07/23/21 15:57 BP 98/60 07/23/21 15:57 Pulse Ox 98 07/23/21 15:57 07/23/21 07/23/21 07/23/21 06:59 14:59 22:59 Intake Total 250 / 310 240 / 240 240 / 480 Balance 250 / 310 240 / 240 240 / 480 Physical Exam Narrative: EXAM NARRATIVE: Patient was eating breakfast when entered the room No aspiration on soft diet S1, S2 variable Soft abdomen Unstageable sacral ulcer Clear urine in the bag EOMI, PERRLA Patient oriented to himself only No acute neurological deficit Saturating well on room air Data : 07/23/21 03:05 07/23/21 03:05 Micro: Microbiology 07/18/21 17:05 Blood Culture - Final Blood NO GROWTH AFTER 5 DAYS 07/18/21 17:10 Blood Culture - Final Blood NO GROWTH AFTER 5 DAYS 07/18/21 17:10 Urine Culture - Final Urine,Clean Catch Yeast A&P Assessment and plan (1) Blood clot in bladder: Status: Acute (2) 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: Status: Acute (3) Hematuria: Status: Acute Qualifiers: Hematuria type: gross Qualified Code(s): R31.0 - Gross hematuria (4) Supratherapeutic INR: Status: Acute (5) Acute renal failure: Status: Acute Qualifiers: Acute renal failure type: unspecified Qualified Code(s): N17.9 - Acute kidney failure, unspecified (6) UTI (urinary tract infection): Status: Acute Qualifiers: Urinary tract infection type: site unspecified Hematuria presence: with hematuria Qualified Code(s): N39.0 - Urinary tract infection, site not specified; R31.9 - Hematuria, unspecified (7) Sepsis: Status: Acute (8) Coagulopathy: Status: Acute (9) Weakness: Status: Acute (10) Decubitus ulcer: Status: Acute (11) Ventricular arrhythmia: Status: Acute (12) Aneurysm: Status: Acute (13) Ischemic cardiomyopathy: Status: Acute (14) Pacemaker: Status: Acute Additional A&P Information Patient presented with hematuria, he was discharged on Coumadin for left ventricular aneurysm with thrombus presented with worsening of sacral ulcer unstageable, presented with hematuria, sepsis and UTI Sepsis secondary to UTI: Resolved Urine culture positive for yeast and Domi albicans Off levo pressors Supratherapeutic INR with blood loss anemia with hematuria INR less than 3 Not a candidate of anticoagulation anymore Received FFP x1, vitamin K x1 Did not require any blood transfusion Coagulopathy: Corrected Hematuria: Improved CBI which was initiated yesterday Unstageable sacral ulcer Consider debridement for discharge High risk for deterioration and septic shock Was planning for debridement once coagulopathy corrected INDERJIT: Improving Reduced action fraction heart failure status post AICD/pacemaker Heart rate stays in the low 60s, noticed pacer spikes requested pacemaker evaluation leaning towards home with home hospice Not a candidate DVT prophylaxis Poor prognosis Attestations Medical Necessity Statement*: Transfer out of ICU to the floor Time Spent in Patient Care: 16 - 35 minutes Coding Level of Care Code Acute Vice President Media Relations for Chg Fwd Diagnoses Blood clot in bladder N32.89 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
[2021-07-23 21:10] LABS: Glucose Point of Care 219 mg/dL (70-110)
[2021-07-24] VITALS: BP 102/56; PULSE 61; RESP 18; TEMP 36.6; O2SAT 99
[2021-07-24 04:00] VITALS: BP 113/65; PULSE 69; RESP 16; TEMP 36.7; O2SAT 99
[2021-07-24 06:05] LABS: Glucose Point of Care 107 mg/dL (70-110)
[2021-07-24 07:25] VITALS: BP 94/57; PULSE 61; RESP 14; TEMP 37; O2SAT 98
[2021-07-24] MEDS: midodrine 5 mg TABLET 10 MG PO ×3 (09:59→21:36)
--- NOTE | 2021-07-24 11:07 | PM.PN ---
Subjective Subjective: Interval history: Patient was seen and examined this morning, continues to be very weak, though he has done well with physical therapy, he is persistent ongoing decline was discussed with his extensively, she is of the opinion that he should be made comfort care. Medications: Reviewed: Yes Vitals/I&O/Wt Last Vital Signs Temp 98.6 F 07/24/21 07:25 Pulse 61 07/24/21 07:25 Resp 14 07/24/21 07:25 BP 94/57 07/24/21 07:25 Pulse Ox 98 07/24/21 07:25 07/23/21 07/24/21 07/24/21 22:59 06:59 14:59 Intake Total 383.129 / 623.129 250 / 873.129 600 / 600 Balance 383.129 / 623.129 250 / 873.129 600 / 600 Physical Exam Narrative: EXAM NARRATIVE: Alert and awake HENMT: COMMON NORMALS: normocephalic and atraumatic HEAD & SCALP: normocephalic and atraumatic Resp: COMMON NORMALS: clear to auscultation bilaterally AUSCULTATION: clear to auscultation bilaterally Cardio: COMMON NORMALS: regular rate, regular rhythm, S1 normal heart sound present, S2 normal heart sound present, No gallops present (Cardio), No murmurs present (Cardio), No rub (Cardio) and Peripheral pulses 2+ throughout RATE: regular rate RHYTHM: regular rhythm HEART SOUNDS: S1 normal heart sound present and S2 normal heart sound present PERIPHERAL PULSES: Peripheral pulses 2+ throughout GI: COMMON NORMALS: Normal to inspection, nondistended, normoactive bowel sounds present, Soft to palpation, non-tender, No hepatosplenomegaly present and no masses AUSCULTATION: Yes normoactive bowel sounds PALPATION: Yes Soft to palpation and Yes No hepatosplenomegaly present RECTAL EXAM: Yes deferred Extremity: COMMON NORMALS: no clubbing, cyanosis or edema and no pedal edema Data : 07/23/21 03:05 07/23/21 03:05 Micro: Microbiology 07/18/21 17:05 Blood Culture - Final Blood NO GROWTH AFTER 5 DAYS 07/18/21 17:10 Blood Culture - Final Blood NO GROWTH AFTER 5 DAYS 07/18/21 17:10 Urine Culture - Final Urine,Clean Catch Yeast A&P Assessment and plan (1) Blood clot in bladder: Status: Acute (2) 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 Associated hyperkalemia and HAGMA. Received ca gluconate and insulin/dextrose in ER, stat CMP now ordered for follow up CT abdomen today does not show signs of gross obstruction, however given hematuria possibility of Dominguez blockage with clots cannot be completely excluded. dominguez flushed in ER, currently draining dark red urine in bag. Monitor I/O Urology consult in am as may need 3 way Dominguez and possible CBI, catheter needed to be inserted cytsoscopically on last admission Status: Acute (6) UTI (urinary tract infection): + UA, however from indwelling catheter, recent complicated pyocystitis Empiric Zosyn and Caspofungin for now while awaiting urine ecx results Status: Acute Qualifiers: Urinary tract infection type: site unspecified Hematuria presence: with hematuria Qualified Code(s): N39.0 - Urinary tract infection, site not specified; R31.9 - Hematuria, unspecified (7) Sepsis: Status: Acute (8) Coagulopathy: Status: Acute (9) Weakness: Status: Acute (10) Decubitus ulcer: Status: Acute (11) Ventricular arrhythmia: Status: Acute (12) Aneurysm: Status: Acute (13) Ischemic cardiomyopathy: Status: Acute (14) Pacemaker: Status: Acute Additional A&P Information Patient presented with hematuria, he was discharged on Coumadin for left ventricular aneurysm with thrombus presented with worsening of sacral ulcer unstageable, presented with hematuria, sepsis and UTI Sepsis secondary to UTI: Resolved Urine culture positive for yeast and Domi albicans Off levo pressors Supratherapeutic INR with blood loss anemia with hematuria INR less than 3 Not a candidate of anticoagulation anymore Received FFP x1, vitamin K x1 Did not require any blood transfusion Coagulopathy: Corrected Hematuria: Improved CBI which was initiated yesterday Unstageable sacral ulcer Consider debridement for discharge High risk for deterioration and septic shock Was planning for debridement once coagulopathy corrected INDERJIT: Improving Reduced action fraction heart failure status post AICD/pacemaker Heart rate stays in the low 60s, noticed pacer spikes requested pacemaker evaluation leaning towards home with home hospice Not a candidate DVT prophylaxis Poor prognosis Attestations Medical Necessity Statement*: Patient needs to be in the hospital for management of INDERJIT, sepsis.Anticipated discharge tomorrow as the family has decided to pursue comfort care. 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
[2021-07-24 11:13] VITALS: BP 89/46; PULSE 101; RESP 14; TEMP 36.4; O2SAT 98
--- NOTE | 2021-07-24 11:13 | PC.NURSE ---
i reported the low bp to the doctor. he was in the room at that time. /46 101hr
[2021-07-24 12:00] LABS: Glucose Point of Care 180 mg/dL (70-110)
[2021-07-24 15:14] VITALS: BP 120/77; PULSE 74; RESP 16; TEMP 36.5; O2SAT 99
[2021-07-24 17:07] LABS: Glucose Point of Care 169 mg/dL (70-110)
[2021-07-24 19:42] VITALS: BP 105/55; PULSE 78; RESP 17; TEMP 36.9; O2SAT 98
[2021-07-24 20:57] LABS: Glucose Point of Care 223 mg/dL (70-110)
[2021-07-25] VITALS: BP 120/70; PULSE 77; RESP 17; TEMP 37; O2SAT 98
[2021-07-25 03:21] LABS: Basophils # 0.1 10^3/uL (0.0-0.1); Basophils % 0.3 %; Eosinophils # 0.4 10^3/uL (0.0-0.8); Eosinophils % 1.7 %; Hematocrit 30.6 % (42.0-52.0); Hemoglobin 9.4 g/dL (11.7-16.6); Lymphocytes # 2.7 10^3/uL (0.8-4.8); Lymphocytes % 13.4 %; Mean Corpuscular HGB Conc 30.7 g/dL (30.0-36.0); Mean Corpuscular Hemoglobin 28.5 pg (28.0-34.0); Mean Corpuscular Volume 92.7 fl (80-94); Mean Platelet Volume 9.6 fL (7.4-10.4); Monocytes # 1.4 10^3/uL (0.2-0.9); Monocytes % 6.8 %; Neutrophils # 14.96 10^3/uL (1.8-7.7); Neutrophils % 73.9 %; Nucleated Red Blood Cells % 0.1 %; Platelet Count 225 10^3/cmm (130-400); Red Cell Distribution Width 17.1 % (12.1-15.1); White Blood Count 20.3 10^3/uL (4.0-10.0)
[2021-07-25 03:36] LABS: Anion Gap 14.1 (5-19); Blood Urea Nitrogen 38 mg/dL (8-23); Calcium 8.4 mg/dL (8.5-10.5); Carbon Dioxide 21 mmol/L (22-29); Chloride 108 mmol/L (98-107); Glucose 129 mg/dL (65-115); Osmolality Calculated 301 mOsm/kg (285-295); Potassium 3.1 mmol/L (3.5-5.1); Sodium 140 mmol/L (136-145)
[2021-07-25 04:00] VITALS: BP 106/63; PULSE 73; RESP 16; TEMP 36.4; O2SAT 99
[2021-07-25 06:43] LABS: Glucose Point of Care 159 mg/dL (70-110)
[2021-07-25 07:53] VITALS: BP 108/63; PULSE 81; RESP 18; TEMP 36.6; O2SAT 100
--- NOTE | 2021-07-25 08:27 | PC.NURSE ---
Patient refused breakfast tray.
[2021-07-25] MEDS: acetaminophen 325 mg Tablet 650 MG PO (08:33)
[2021-07-25] MEDS: midodrine 5 mg TABLET 10 MG PO ×2 (08:36→14:31)
--- NOTE | 2021-07-25 08:53 | PM.DCS ---
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: Status: Acute (3) Hematuria: Status: Acute Qualifiers: Hematuria type: gross Qualified Code(s): R31.0 - Gross hematuria (4) Supratherapeutic INR: Status: Acute (5) Acute renal failure: Status: Acute (6) UTI (urinary tract infection): Status: Acute Qualifiers: Hematuria presence: with hematuria Urinary tract infection type: site unspecified Qualified Code(s): N39.0 - Urinary tract infection, site not specified; R31.9 - Hematuria, unspecified (7) Sepsis: Status: Acute (8) Coagulopathy: Status: Acute (9) Weakness: Status: Acute (10) Decubitus ulcer: Status: Acute (11) Ventricular arrhythmia: Status: Acute Permanent problem details: EKG from today revealed sinus rhythm with first-degree AV block diffuse nonspecific T wave changes (12) Aneurysm: Status: Acute (13) Ischemic cardiomyopathy: Status: Acute (14) Pacemaker: Status: Acute Reason for Visit Reason for Visit: HYPOTENSION Hospital Course Hospital Course 75 year old male with past medical history of heart failure with reduced ejection fraction, status post AICD, coronary artery disease, 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 Patient was discharged with an indwelling Cabral he was to see urology as an outpatient. During the last hospital stay he was started on warfarin for large L.V aneurysm with thrombus. Was admitted with chief complaint of lethargy and weakness. He was also having hematuria at home, upon arrival in the ER his INR was supratherapeutic, serum creatinine was 6.5, hyperkalemia.CT abd/pelvis shows decompressed bladder with Cabral in place, mildly dilated collecting systems similar to last imaging on 06/26, small foci of air within right renal calyces, patchy GGOS in chest. Admitted for the management of acute renal failure, secondary to postobstructive uropathy likely secondary to clot retention. Patient was started on CBI. During the Hospital stay was also managed for sepsis secondary to UTI, Urine culture positive for yeast and Domi albicans, blood cultures were negative, he was kept on broad-spectrum antibiotic as well as broad-spectrum antifungal, he also required vasopressor support, at the time of discharge he was requiring midodrine. His INDERJIT on CKD responded well to conservative medical management, serum creatinine at the time of discharge was, trending in the right direction ( 2 ). Hematuria had resolved. Patient failed voiding trial, Cabral was reinserted prior to discharge, he will continue to see urology as an outpatient.For his supratherapeutic INR he received FFP and vitamin K, did not required transfusion, warfarin was not continued on discharge, given hematuria and overall poor prognosis.Patient was discharged on fluconazole 100 mg p.o. daily for additional 7-days. Patient will continue with home wound care for his sacral ulcer. Patient will also continue with home physical therapy. Patient overall responded well to the above medical management and was discharged in stable condition to home.Patient has refused SNF placement. Physical Exam Narrative: EXAM NARRATIVE: Alert and awake HENMT: COMMON NORMALS: normocephalic and atraumatic HEAD & SCALP: normocephalic and atraumatic Resp: COMMON NORMALS: clear to auscultation bilaterally AUSCULTATION: clear to auscultation bilaterally Cardio: COMMON NORMALS: regular rate, regular rhythm, S1 normal heart sound present, S2 normal heart sound present, No gallops present (Cardio), No murmurs present (Cardio), No rub (Cardio) and Peripheral pulses 2+ throughout RATE: regular rate RHYTHM: regular rhythm HEART SOUNDS: S1 normal heart sound present and S2 normal heart sound present PERIPHERAL PULSES: Peripheral pulses 2+ throughout GI: COMMON NORMALS: Normal to inspection, nondistended, normoactive bowel sounds present, Soft to palpation, non-tender, No hepatosplenomegaly present and no masses AUSCULTATION: Yes normoactive bowel sounds PALPATION: Yes Soft to palpation and Yes No hepatosplenomegaly present RECTAL EXAM: Yes deferred Extremity: COMMON NORMALS: no clubbing, cyanosis or edema and no pedal edema Discharge Data Data Completed and Pending: Completed Studies During Hospitalization Category Date Time Status CT abdomen pelvis wo con [id number] Stat Cat Scan 08/25/21 16:57 Completed XR chest 1V irasema ble [id number] Stat Exams 07/18/21 16:23 Completed Pending at discharge Category Date Time Status Basic Metabolic P satnam AM LABS Lab 07/26/21 04:00 Ordered Basic Metabolic P satnam AM LABS Lab 07/27/21 04:00 Ordered Complete Blood Co unt w/Auto AM LABS Lab 07/26/21 04:00 Ordered Complete Blood Co unt w/Auto AM LABS Lab 07/27/21 04:00 Ordered Miscellaneous Amaya t Routine Lab 07/23/21 08:00 Received Labs from last 24 hours 07/25/21 07/25/21 07/25/21 06:17 02:11 02:11 WBC 20.3 H RBC 3.30 L Hgb 9.4 L Hct 30.6 L MCV 92.7 MCH 28.5 MCHC 30.7 RDW 17.1 H Plt Count 225 MPV 9.6 Neut % (Auto) 73.9 Lymph % (Auto) 13.4 Bradley % (Auto) 6.8 Eos % (Auto) 1.7 Baso % (Auto) 0.3 Neut # (Auto) 14.96 H Lymph # (Auto) 2.7 Bradley # (Auto) 1.4 H Eos # (Auto) 0.4 Baso # (Auto) 0.1 Nucleated RBC % (a uto) 0.1 Nucleated RBCs # 0.0 Sodium 140 Potassium 3.1 L Chloride 108 H Carbon Dioxide 21 L Anion Gap 14.1 BUN 38 H Creatinine 2.0 H GFR Calculation Not Reportable Glucose 129 H POC Glucose 159 H Calculated Osmolal ity 301 H Calcium 8.4 L 07/24/21 07/24/21 07/24/21 20:36 16:30 11:11 WBC RBC Hgb Hct MCV MCH MCHC RDW Plt Count MPV Neut % (Auto) Lymph % (Auto) Bradley % (Auto) Eos % (Auto) Baso % (Auto) Neut # (Auto) Lymph # (Auto) Bradley # (Auto) Eos # (Auto) Baso # (Auto) Nucleated RBC % (a uto) Nucleated RBCs # Sodium Potassium Chloride Carbon Dioxide Anion Gap BUN Creatinine GFR Calculation Glucose POC Glucose 223 H 169 H 180 H Calculated Osmolal ity Calcium Vitals: Last Vital Signs Temp 97.9 F 07/25/21 07:53 Pulse 81 07/25/21 07:53 Resp 18 07/25/21 07:53 BP 108/63 07/25/21 07:53 Pulse Ox 100 07/25/21 07:53 Discharge Plan Discharge Patient Disposition: Home Condition: Stable Prescriptions: New fluconazole 100 mg tablet 100 mg PO DAILY Qty: 7 RF: 0 midodrine 5 mg Tablet 10 mg PO TID 30 Days Qty: 180 RF: 3 Continued levothyroxine 100 mcg tablet 100 mcg PO .DAILY EXCEPT ON SUN RF: 0 rosuvastatin 20 mg tablet 20 mg PO BEDTIME RF: 0 magnesium 2 tab PO DAILY RF: 0 metoprolol tartrate 50 mg tablet 25 mg PO BID PRN (Reason: HOLD IF SBP IS <105 OR HEART RATE IS <50) RF: 0 tamsulosin 0.4 mg capsule 0.4 mg PO BEDTIME RF: 0 Adult Multivitamin Gummies 200 mcg Tablet,Chewable 2 tab PO QAM RF: 0 Lantus Solostar U-100 Insulin 100 unit/mL (3 mL) insulin pen 5 unit SUBCUT QAM RF: 0 (DME) lancets-blood glucose strips 30 gauge combo pack See Rx Instructions .Route Qty: 200 RF: 0 (DME) blood-glucose meter [Accu-Chek Ruth Plus Meter] Misc See Rx Instructions .Route Qty: 1 RF: 0 Discontinued warfarin 3 mg Tablet 3 mg PO DAILY@14 RF: 0 fluconazole 100 mg tablet 100 mg PO QAM RF: 0 Discharge Orders: Discharge Order (Routine); Ordered 07/25/21 Ordered By: Mendoza Daugherty Referrals: Alejo Lew MD [Physician] - 08/24/21 9:30 am Param Kamara MD [Primary Care Provider] - 08/08/21 9:15 am Discharge Diet: Regular Patient Instructions: Acute Kidney Injury (DC), Urinary Tract Infection in Men (DC), Acute Hematuria (DC), Opioid Safety Discharge Attestations Time Spent in Discharge Care*: less than 30 min Specific Discharge Activities: educating patient, educating and/or supporting family/caregiver, discussing with pcp/other providers, discussing with medical case manager/social workers/dc planners, documenting/other paperwork and evaluating patient/reviewing data Status at Discharge: Cognitive status at discharge: cognitively intact, Behavioral status at discharge: cooperative, Functional status at discharge: other assisted ambulation Overall status at discharge: patient is back to baseline Quality Metrics Clinical Quality Measures During this hospital stay, did patient experience: None Coding Level of Care Code Acute Chg FW DC note Diagnoses Blood clot in bladder N32.89 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
--- NOTE | 2021-07-25 09:44 | PC.NURSE ---
Irrigated 120mL with sterile water with only clear urine returned Bladder scanned at 0800 with 127mL retained Cabral catheter was removed 10mL was removed from balloon prior to removal.
[2021-07-25 10:19] LABS: Glucose Point of Care 215 mg/dL (70-110)
--- NOTE | 2021-07-25 11:22 | PC.SOCIAL ---
IMM Updated Updated pt on Pg 2 IMM. No questions voiced. Provided pt a copy. Initialed, dated, & timed copy in chart.
[2021-07-25 11:40] VITALS: BP 115/56; PULSE 60; RESP 15; TEMP 36.9; O2SAT 99
--- NOTE | 2021-07-25 12:42 | PM.PN ---
Subjective Subjective: Interval history: Urology follow-up Was no longer requiring CBI to keep urine clear. Recommended Cabral catheter to be removed. 6 bottle void bladder scans ordered. Catheter to be replaced if he fails to void adequately. I have been following in the chart. Ultimately he may do better with a long-term indwelling Cabral catheter given his overall status but hopefully can void adequately without. Reviewed with the nursing staff. Discussed with his . Can replace Cabral today if he fails his 6 bottle void/frequent bladder scans. As long as he is not in clot retention I think outpatient management is reasonable. Vitals/I&O/Wt Last Vital Signs Temp 98.5 F 07/25/21 11:40 Pulse 60 07/25/21 11:40 Resp 15 07/25/21 11:40 BP 115/56 07/25/21 11:40 Pulse Ox 99 07/25/21 11:40 07/24/21 07/25/21 07/25/21 22:59 06:59 14:59 Intake Total 120 / 840 250 / 1090 Balance 120 / 840 250 / 1090 Physical Exam Const: COMMON NORMALS: no acute distress, alert and well nourished GENERAL APPEARANCE: well kempt and well developed HENMT: COMMON NORMALS: atraumatic HEAD & SCALP: atraumatic Neck/C-Spine: COMMON NORMALS: full ROM GENERAL: Yes normal visual inspection Resp: COMMON NORMALS: normal respiratory effort EFFORT & INSPECTION: No labored and No Actively coughing Neuro: SENSORIUM/ORIENTATION: Yes alert Psych: APPEARANCE: Yes grossly normal and Yes well kempt ATTITUDE: Yes calm Urinary Catheter Management^: 3-way Urethral CBI: Cath Placed During This Visit: yes, but has since been removed by the nurse Reason for Continuing Indwelling Catheter: Decision to DC Catheter Date Urinary Catheter Removed: 07/25/21 Time Urinary Catheter Discontinued: 08:00 Data : 07/25/21 02:11 07/25/21 02:11 A&P Assessment and plan (1) Hematuria: Cleared well after correction of anticoagulated state No current CBI requirement. Cath removed today. Can be managed without catheter if voids adequately with no severe recurrent bleeding. 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 Status: Acute (3) UTI (urinary tract infection): Severe UTI with pyocystis last hospital stay. 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
[2021-07-25 16:52] VITALS: BP 115/56; PULSE 60; RESP 15; TEMP 36.9; O2SAT 99
--- NOTE | 2021-07-26 13:51 | PC.SOCIAL ---
discharge follow up call made. spoke with pts . Home health was at the home at the moment. patient filled prescriptions and is taking as prescribed and they are aware of dates and times for follow up appointments.
== END 2021-07-25 15:30 | disposition home health service (06) | DRG 698 ==
LOC: ER 18:28 → ICU 20:20 → MEDSURG 07-23 10:49
PROVIDERS: Emergency Medicine; Student in an Organized Health Care Education/Training Program; Admitting Provider Internal Medicine; Emergency Provider Family Medicine; PCP Family Medicine; Visit Provider Internal Medicine
DX: T83.511A Infection and inflammatory reaction due to indwelling urethral catheter, initial encounter (principal); A41.9 Sepsis, unspecified organism; N17.9 Acute kidney failure, unspecified; I25.3 Aneurysm of heart; E87.2 Acidosis; D62 Acute posthemorrhagic anemia; Z68.1 Body mass index [BMI] 19.9 or less, adult; N30.81 Other cystitis with hematuria; N99.115 Postprocedural fossa navicularis urethral stricture; N32.89 Other specified disorders of bladder; I49.9 Cardiac arrhythmia, unspecified; I44.0 Atrioventricular block, first degree; I25.5 Ischemic cardiomyopathy; L89.159 Pressure ulcer of sacral region, unspecified stage; E03.9 Hypothyroidism, unspecified; I13.10 Hypertensive heart and chronic kidney disease without heart failure, with stage 1 through stage 4 chronic kidney disease, or unspecified chronic kidney disease; E11.22 Type 2 diabetes mellitus with diabetic chronic kidney disease; N18.9 Chronic kidney disease, unspecified; D63.1 Anemia in chronic kidney disease; I25.10 Atherosclerotic heart disease of native coronary artery without angina pectoris; I95.89 Other hypotension; E87.5 Hyperkalemia; E11.65 Type 2 diabetes mellitus with hyperglycemia; R63.0 Anorexia; Z79.01 Long term (current) use of anticoagulants; Z79.4 Long term (current) use of insulin; Z96.0 Presence of urogenital implants; Z66 Do not resuscitate; Z95.810 Presence of automatic (implantable) cardiac defibrillator; Z96.642 Presence of left artificial hip joint; Z82.49 Family history of ischemic heart disease and other diseases of the circulatory system; Z83.3 Family history of diabetes mellitus
CPT/HCPCS: 36415; 36416; 36600; 51702; 51798; 71045; 74176; 80048; 80053; 81001; 82550; 82803; 82962; 83605; 84145; 84484; 85014; 85018; 85025; 85610; 85730; 86900; 86927; 87040; 87086; 87106; 87635; 92523; 92524; 92610; 93005; 96365; 96367; 96372; 96375; 97110; 97161; 97530; 99291; J0610; J0637; J0743; J1720; J1815; J2270; J2405; J2543; J3430; J3490; J7030; J7050; P9017; P9041